=== PATIENT | female | born 1990 | race Caucasian/White ===

== ENCOUNTER → 2020-04-07 11:29 | Outpatient (CLI) | payer OTHER, SELFPAY ==
[2020-04-07 12:16] LABS: COVID19 -Nasal RAPID Negative (Negative)
== END ==
PROVIDERS: Visit Provider Surgery
DX: Z01.812 Encounter for preprocedural laboratory examination (principal); Z20.828 Contact with and (suspected) exposure to other viral communicable diseases
CPT/HCPCS: 87635; C9803

== ENCOUNTER 2020-04-08 09:12 | Day surgery (SDC) | payer OTHER, SELFPAY ==
[2020-04-03 11:44] VITALS: BMI 31.2
[2020-04-08] VITALS (13 sets, daily range): BP systolic 98–119; BP diastolic 45–99; PULSE 47–71; RESP 14–20; TEMP 36.5–37.2; O2SAT 96–100; BMI 30.9
--- NOTE | 2020-04-08 | PATH_ITS ---
[facility] Accession Number: [id number] . 01 Material submitted: . gallbladder - GALLBLADDER AND CONTENTS . 02 Diagnosis: Gallbladder, Cholecystectomy: Chronic cholecystitis with cholelithiasis. Negative for dysplasia and malignancy. MRV 04/11/2020 1144 Local . 02 Electronically signed: . Jeannine Kelly MD, Pathologist NPI- [id number] . 01 Gross description: . Received in formalin, labeled with the patient's name and gallbladder and contents, is an 8.5 x 2.5 x 2.5 cm gallbladder, previously disrupted at body, with clip at patent cystic duct margin, margin inked blue. Opening the gallbladder reveals yellow-jones multifaceted calculi, 2.0 to 3.0 cm in greatest dimension with green velvety mucosa and wall thickness up to 0.2 cm. Vault Attendant sections are submitted. . Summary of sections: A1. Gallbladder and cystic duct margin, five pieces. (MD:[id number]) /MRV 04/09/2020 1509 Local . 02 Pathologist provided ICD-10: K80.60 . 02 CPT . 527738 Performed at: 01 [facility] [address] [facility] [place], [place], [place] [id number] MD Aaron Wilson MD Phone: [phone] Performed at: 02 [facility] [address] [place], [place] [id number] MD Jeannine Kelly MD Phone: [phone]
--- NOTE | 2020-04-08 09:32 | PM.PREOP ---
Pre-operative Note COVID-19 COVID-19 status: Negative Interval Note History & Physical reviewed/Exam performed by Physician: Yes Changes to H&P: No
[2020-04-08] MEDS: ACETAMINOPHEN 325 MG TABLET 975 MG PO (09:44)
[2020-04-08] MEDS: LACTATED RINGERS 1,000 ML 100 ML IV ×2 (09:46→11:15)
--- NOTE | 2020-04-08 09:49 | SUR.OPER ---
Supine on padded OR bed, head on pillow, arms secured on padded arm boards at <90 degrees abduction, legs uncrossed, safety belt at thigh, tape over blanket over lower legs.
[2020-04-08] MEDS: CEFAZOLIN 2 GM/100 ML FROZ.PIGGY IV (10:10)
[2020-04-08] MEDS: BUPIVACAINE 0.25% (PF) VIAL 30 ML INJ (10:31)
--- NOTE | 2020-04-08 11:41 | P.OP_ITS ---
Operative Date/Time/Diagnoses Date of procedure: 04/08/20 Time of procedure: 11:41 Pre-op diagnosis: Biliary colic Post-op diagnosis: same Procedure & Clinicians Procedure: Laparoscopic cholecystectomy Same procedure as scheduled: Yes Indications: 29-year-old female with symptomatic cholelithiasis Surgeon: Faustino Coffman Anesthesia Type: General Operative Notes Findings: Critical view safety established, large gallstone Specimen(s): other (Gallbladder) Estimated Blood Loss (mL): 20 Procedure in detail: The patient was placed supine on the table and bilateral lower extremity compression devices were applied. Anesthesia was induced they were intubated with an endotracheal tube and received 2g of Ancef. A time-out was performed. They were prepped and draped in sterile fashion. An infraumbilical incision was made, the umbilical stalk was elevated and the fascia was sharply incised entering the abdomen atraumatically. A blunt tip 12mm balloon trocar was then inserted, pneumoperitoneum was established and inspection of the abdomen demonstrated no evidence of injury. They were placed head up and right side up and then a 11 mm port was placed high in the epigastrium and two 5mm in the right upper quadrant. The gallbladder was grasped by the fundus and retracted over the liver and retracted laterally by the infundibulum. Using electrocautery the lateral plane between the gallbladder and the liver was opened towards the fundus. The gallbladder was not acutely inflamed there was a large gallstone present. The gallbladder was then retracted laterally and the medial plane was developed in the same manner. With the gallbladder mobilized the bottom of the cystic plate was visualized. The hepatocystic triangle was meticulosly skeletonized using hook electrocautery of all fat and fibrous tissue from both the front and the back. Only two structures were then clearly seen entering the gallbladder the cystic duct and the cystic artery. With the critical view of safety fully established the cystic duct was clipped twice proximally and once distally using the 10 mm clip applied under direct visualization and then sharply divided. The cystic artery was divided in the same fashion. The gallbladder was removed from the liver bed using electro cautery. The liver bed was then inspected for hemostasis and this was achieved. The abdomen was irrigated with sterile saline and inspection was made that showed the clips in good position. The specimen was removed using Endo-Catch. The abdomen was desufflated. The umbilical fascia was closed with 0 Vicryl in a [id number] fashion under direct visualization. Skin incisions were irrigated and closed with 4-0 Monocryl. 30 ml of 0.25% bupivac madison was infiltrated into the subcutaneous tissue of the incisions. The wounds were sealed with Dermabond. Patient emerged from anesthesia was extubated and transferred to recovery in stable condition. The sponge and instrument count at the end of the operation was correct. Complications: none Post-operative Condition: stable Disposition: same day surgery
[2020-04-08] MEDS: OXYCODONE IR 5 MG TABLET PO ×2 (12:27→12:58)
== END 2020-04-08 13:17 | disposition home or self-care (01) ==
PROVIDERS: Referring Provider Surgery; Visit Provider Surgery
PROC: 0FT44ZZ Resection of Gallbladder, Percutaneous Endoscopic Approach (ICD-10-PCS; CPT 47562; principal; 2020-04-08 10:15)
DX: K80.10 Calculus of gallbladder with chronic cholecystitis without obstruction (principal); I48.91 Unspecified atrial fibrillation
CPT/HCPCS: 47562; 82962; J0330; J0690; J1100; J1885; J2250; J2405; J2704; J3010

== ENCOUNTER → 2020-07-03 12:17 | Outpatient (CLI) | payer OTHER, SELFPAY | PROVIDERS: Referring Provider Obstetrics & Gynecology; Visit Provider Obstetrics & Gynecology | DX: Z34.90 Encounter for supervision of normal pregnancy, unspecified, unspecified trimester (principal); Z87.59 Personal history of other complications of pregnancy, childbirth and the puerperium | CPT/HCPCS: 36415; 84702 ==

== ENCOUNTER → 2020-07-09 14:45 | Outpatient (CLI) | payer OTHER, SELFPAY ==
--- NOTE | 2020-07-09 14:50 | DI.US.S_ITS ---
PROCEDURE: US OB <= 14 WEEKS FETUS INDICATIONS: DATES OUTSIDE/PRIOR DATING DATA: First dating scan (date and location): 07/09/2020 . Estimated date of delivery (RORY) from first dating scan: 03/06/2021 . TECHNIQUE: Real-time scanning was performed of the fetuses and maternal pelvic organs, with image documentation. Endovaginal scanning: Performed for better visualization of the fetuses and maternal adnexal structures. COMPARISON: None. FINDINGS: General: An intrauterine diamniotic dichorionic twin is present, as evidenced by separate placental sites and/or intervening membrane thickness of greater than 2 mm at this early gestational age. Gestational sac A: Embryonic disc present measuring 2 mm corresponding to 5 weeks 5 days and heart rate measures 169 beats per minute. Gestational sac B: Mean gestational sac size of 9 mm corresponding to 5 weeks 5 days and no visible pole or yolk sac. Measurement variability in dating: +/- 4 weeks by LMP, +/- 7 days by mean sac diameter (use before 6 weeks gestation if crown-rump length unable to be measured), +/- 5 days by crown-rump length (up to 8 weeks 6 days gestation), +/- 7 days by crown-rump length (up to 13 weeks 6 days gestation). Maternal organs: Ovaries within normal limits . IMPRESSION: 1. Diamniotic dichorionic twin with a pole visualized within 1 of the 2 sacs measuring 2 mm corresponding to 5 weeks 5 days. Within the other sac, no definite pole or yolk sac is seen. Recommend short-term follow-up pelvic ultrasound in 1 week to assess viability. Dictated by: Kale Newsome [facility] Interpreted: Sofía Vazquez MD on 07/09/2020 at 15:35 Approved by: Sofía Vazquez MD, PhD on 07/09/2020 at 15:39
== END ==
PROVIDERS: PCP Obstetrics & Gynecology; Referring Provider Obstetrics & Gynecology; Visit Provider Obstetrics & Gynecology
DX: Z34.81 Encounter for supervision of other normal pregnancy, first trimester (principal); Z3A.01 Less than 8 weeks gestation of pregnancy
CPT/HCPCS: 76801; 76802; 76817

== ENCOUNTER → 2020-07-28 11:44 | Outpatient (CLI) | payer OTHER, SELFPAY ==
[2020-07-28 12:47] LABS: Add Manual Diff / Slide Review NO; Basophils Absolute Auto 100 /uL (0-100); Basophils Percent Auto 0.5 % (0-2); Eosinophils Absolute Auto 100 /uL (0-450); Eosinophils Percent Auto 1.1 % (2-4); Hematocrit 38.4 % (36-46); Hemoglobin 13.6 g/dL (12.0-16.0); Lymphocytes Absolute Auto 2000 /uL (1100-4500); Lymphocytes Percent Auto 20.6 % (25-40); Mean Corpuscular HGB Conc 35.3 % (30-36); Mean Corpuscular Hemoglobin 31.4 PG (26-34); Mean Corpuscular Volume 88.9 fL (80-100); Monocytes Absolute Auto 600 /uL (0-900); Monocytes Percent Auto 6.4 % (3-14); Neutrophils Absolute Auto 6900 /uL (1500-7000); Neutrophils Percent Auto 71.4 % (50-75); Platelet Count 229 X10^3/uL (150-400); Red Blood Cell Count 4.32 X10^6/uL (4.0-5.2); Red Cell Distribution Width 13.1 % (11.6-14.8); White Blood Cell Count 9.7 X10^3/uL (4.5-11.0)
[2020-07-28 13:04] LABS: Hemoglobin A1C% w Est Avg Glu 4.9 % (4.0-6.0)
[2020-07-28 16:29] LABS: HIV 1 & 2 Ab/Ag 4th Gen Combo NEGATIVE (NEGATIVE); Hep C Virus Ab w/Reflex Quant NEGATIVE s/c (NEGATIVE); Hepatitis B Surface Antigen NEGATIVE s/c (NEGATIVE); Rubella Antibody IgG 20.3 IU/mL (>15)
[2020-07-29 07:31] LABS: RPR Screen Non Reactive (Non Reactive)
[2020-07-29 13:00] LABS: Varicella IgG Antibody <135 index (Immune >165)
== END ==
PROVIDERS: PCP Student in an Organized Health Care Education/Training Program; Referring Provider Obstetrics & Gynecology; Visit Provider Obstetrics & Gynecology
DX: Z34.81 Encounter for supervision of other normal pregnancy, first trimester (principal)
CPT/HCPCS: 36415; 80055; 83036; 86787; 86803; 86850; 86900; 86901; 87389

== ENCOUNTER → 2020-08-07 13:39 | Outpatient (CLI) | payer OTHER, SELFPAY ==
--- NOTE | 2020-08-07 14:32 | DIET.PN ---
INITIAL GESTATIONAL DIABETES ASSESSMENT ASSESS:? Mrs. Infante is a 29 yof with twin gestation referred for gestational diabetes. She is . She had gestational diabetes with her last . She reports feeling much more fatigued and nauseous throughout this . She admits she has been eating high carb meals. She does weekly meal planning. She has not been monitoring her glucose, but she does have a glucose monitor and will purchase new strips. ? RORY:?Feb 2021 (planned for Jan) ? WKS GESTATION:?? 10 wks ?LABS: A1c: 4.9 (has not had OGTT yet) ? MEDS: no med ? DIET:? Convenience foods B: cereal; guyanese yogurt smoothie; egg sandwich (great seed bread) L: chicken Caesar jv; grilled cheese D: salas?s pie; pork chops, veg, starch; chicken enchiladas ? HT:? 64in ? PRE-PREG WT:? 190lb ? PRE-PREG BMI:??? 32.6 ? CURRENT WT: 190lb ? TOTAL WT GAIN:? 0 EXERCISE: none NUTRITION DX 1. Altered nutrition related lab values r/t gestational diabetes as evidenced by hx of gestational diabetes w/ prior . INTERVENTION 1. Discussed pathophysiology of gestational diabetes and impact of hormone and nutrition/diet on blood sugar control.? Discussed fed versus non-fed state.? 2. Recommended checking fasting, pre-meal and 1hr post prandial (3x/day).? Discussed goals for glycemic control (<95 FBG, <140 1-hr PP).? 3. Discussed the effect of carbohydrates/protein/fat on blood sugar control.? Stressed importance of consistent carbohydrate intake at each meal and provided instructions for recommended servings/portions of carbohydrates/protein per meal.? Provided pt with educational material. 4. Introduced carbohydrate counting and measuring carbohydrate content via servings sizes and reading nutrition labels.? Provided handouts.? Pt will need further review 5. Discussed importance of meal timing and not going >3 hours between meals.? Provided sample meal schedule for pt.? Pt agreeable.?? 6. Discussed importance a pre- vitamin and including food sources of calcium, vitamin D, iron and folic acid for baby and mother?s nutrition support. 7. Discussed caffeine intake. Recommend no more than 200 mg/day (1 cup coffee). 8. Discussed rule of 15 for hypoglycemia. 9. Recommend patient purchase Urine Ketone strips and instructed on use and when to contact provider. 10. Recommended patient continue exercise as appropriate per PCP approval. 11. Patient may need medication management, will follow-up with plan of care at next visit after reviewing glucose results.? Goals: Pro: 70-95g (1st 1/2 of preg) 95-120g (2nd ?) Carb: 150-180g/day (depending on glucose values MONITOR/EVAL: Follow up scheduled X 1 week. Good compliance expected. Review: carb sources, carb counting, portion size, meal timing, BG log, weight.
== END ==
PROVIDERS: PCP Student in an Organized Health Care Education/Training Program; Referring Provider Student in an Organized Health Care Education/Training Program; Visit Provider Obstetrics & Gynecology
DX: O24.419 Gestational diabetes mellitus in pregnancy, unspecified control (principal); Z3A.10 10 weeks gestation of pregnancy; Z71.3 Dietary counseling and surveillance
CPT/HCPCS: G0108

== ENCOUNTER → 2020-09-15 09:55 | Outpatient (CLI) | payer OTHER, SELFPAY ==
[2020-09-15 12:01] LABS: Appearance Urine UA SL CLOUDY; Bilirubin Urine UA NEGATIVE (NEGATIVE); Color Urine UA YELLOW; Glucose Urine UA TRACE g/dL (Negative); Ketones Urine UA NEGATIVE (NEGATIVE); Leukocyte Esterase Urine UA NEGATIVE (NEGATIVE); Nitrite Urine UA NEGATIVE (Negative); Occult Blood Urine UA NEGATIVE (Negative); Protein Urine UA TRACE (Negative); Urobilinogen Urine UA 0.2 E.U./dL (0.2)
[2020-09-15 12:09] LABS: pH Urine UA 6.5 (4.5-8.0)
== END ==
PROVIDERS: PCP Student in an Organized Health Care Education/Training Program; Visit Provider Obstetrics & Gynecology
DX: Z34.81 Encounter for supervision of other normal pregnancy, first trimester (principal)
CPT/HCPCS: 81003; 87086

== ENCOUNTER → 2020-10-13 12:17 | Outpatient (CLI) | payer OTHER, SELFPAY ==
[2020-10-13 17:10] LABS: Urine N gonorrhoeae NOT DETECTED
[2020-10-13 17:14] LABS: Urine Chlamydia NOT DETECTED
== END ==
PROVIDERS: PCP Student in an Organized Health Care Education/Training Program; Referring Provider Obstetrics & Gynecology; Visit Provider Obstetrics & Gynecology
DX: Z34.82 Encounter for supervision of other normal pregnancy, second trimester (principal); Z3A.19 19 weeks gestation of pregnancy
CPT/HCPCS: 87491; 87591

== ENCOUNTER → 2020-10-20 10:28 | Outpatient (CLI) | payer OTHER, SELFPAY ==
--- NOTE | 2020-10-20 10:28 | DI.US.S_ITS ---
PROCEDURE: US OB >= 14 WEEKS FETUS INDICATIONS: ANATOMY OUTSIDE/PRIOR DATING DATA: Last menstrual period (LMP): 05/31/20 . LMP-based estimated date of delivery (RORY): 03/07/21 First dating scan (date and location): 07/09/20 . Estimated date of delivery (RORY) from first dating scan: 03/06/21 . TECHNIQUE: Real-time scanning was performed of the fetus, with image documentation and biometric measurements. Endovaginal scanning: Not performed COMPARISON: [facility], OB >= 14 WEEKS FETUS, 08/15/2020, 9:53. [facility], OB <= 14 WEEKS FETUS, 07/28/2020, 11:24. [facility], OB >= 14 WEEKS FETUS, 07/23/2020, 12:20. [facility], OB <= 14 WEEKS FETUS, 07/09/2020, 14:59. [facility], OB >= 14 WEEKS FETUS, 09/15/2020, 9:59. FINDINGS: General: A single living intrauterine gestation is present. Presentation: Transverse head maternal left.. Placenta: Placental position is left posterior , and there is marginal placenta previa. Amniotic fluid index: 12.0 cm, normal range is 5-24 cm. heart rate: 155 beats per minute. Maternal cervical canal: 6.0 cm long. Normal lower limit is 2.5 cm. biometrics: Biparietal diameter: 4.8 cm, 20 weeks 3 days Head circumference: 18.7 cm, 21 weeks 0 days Abdominal circumference: 16.1 cm, 21 weeks 3 days Femur length: 3.5 cm, 20 weeks 6 days Estimated gestational age from initial scan: 20 weeks 3 days Composite gestational age from present scan: 21 weeks 0 days Estimated weight and percentile: 403 g, 83rd percentile bowel Measurement variability for biometric dating: +/- 7 days from 14 weeks to 15 weeks 6 days gestation, +/- 10 days from 16 weeks to 21 weeks 6 days gestation, +/- 2 weeks from 22 weeks to 27 weeks 6 days gestation, +/- 3 weeks for 28 weeks gestation or later. weight reference: 4500 g or EFW >90/95% is considered macrosomia or large for gestational age. EFW <10% is small for gestational age. EFW 5% or less is considered intra-uterine growth restriction. Anatomic survey: Neuro: Ventricles are non-dilated at less than 10 mm. Cisterna magna is normal at 3-11 mm. Cerebellum is normal in size and morphology. Nuchal skin fold: Normal at less than 6 mm between 14-21 weeks gestational age. Face: Nose and lips, facial profile are normal. Spine: No evidence for spina bifida. Heart: 4-chambered heart is present, with normal ventricular outflow tracts. Diaphragm: Diaphragm is intact. Stomach: Left-sided stomach is present. Kidneys: No hydronephrosis. Normal is less than 5 mm in 2nd trimester, less than 7 mm in 3rd trimester. Cord: 3-vessel cord has orthotopic insertion. Bladder: Normal in size. Extremities: All 4 extremities identified. IMPRESSION: Single living intrauterine fetus in transverse (head maternal left) presentation. Expected interval growth as above. Marginal placenta previa. Recommend follow-up Normal anatomic survey. Dictated by: Pito Luu M.D. on 10/20/2020 at 12:46 Approved by: Pito Luu M.D. on 10/20/2020 at 12:53
== END ==
PROVIDERS: PCP Student in an Organized Health Care Education/Training Program; Referring Provider Obstetrics & Gynecology; Visit Provider Obstetrics & Gynecology
DX: Z34.82 Encounter for supervision of other normal pregnancy, second trimester (principal); Z3A.20 20 weeks gestation of pregnancy
CPT/HCPCS: 76811

== ENCOUNTER → 2020-11-19 09:42 | Outpatient (CLI) | payer OTHER, SELFPAY ==
--- NOTE | 2020-11-19 09:43 | DI.US.S_ITS ---
PROCEDURE: US OB LIMITED INDICATIONS: CERVICAL LENGTH OUTSIDE/PRIOR DATING DATA: Last menstrual period (LMP): 05/31/20 LMP-based estimated date of delivery (RORY): 03/07/21 First dating scan (date and location): 07/09/20 Estimated date of delivery (RORY) from first dating scan: 03/06/21 TECHNIQUE: Real-time scanning was performed of the fetus, with image documentation. Endovaginal scanning: Performed COMPARISON: Ultrasound dated 11/18/20, 10/20/20, 09/15/20, 08/15/20, 07/28/20, 07/23/20, 07/09/20. FINDINGS: A single living intrauterine gestation is present. Presentation: Vertex. Placenta: Placental position is posterior , without previa. Amniotic fluid index: 9.1 cm, normal range is 5-24 cm. heart rate: 126 beats per minute. Maternal cervical canal: 3.9 cm long. Normal lower limit is 2.5 cm. Estimated gestational age from initial scan: 24 weeks 5 days . IMPRESSION: Single living intrauterine fetus in vertex presentation Cervical length measures 3.9 cm within normal limits. Normal CON Dictated by: Pito Luu M.D. on 11/19/2020 at 11:08 Approved by: Pito Luu M.D. on 11/19/2020 at 11:10
== END ==
PROVIDERS: PCP Student in an Organized Health Care Education/Training Program; Referring Provider Obstetrics & Gynecology; Visit Provider Obstetrics & Gynecology
DX: Z36.86 Encounter for antenatal screening for cervical length (principal); Z3A.24 24 weeks gestation of pregnancy
CPT/HCPCS: 76815; 76817

== ENCOUNTER → 2020-11-29 09:36 | Outpatient (CLI) | payer OTHER, SELFPAY ==
[2020-11-29 10:54] LABS: Hematocrit 33.8 % (36-46); Hemoglobin 11.6 g/dL (12.0-16.0)
[2020-11-29 11:18] LABS: GTT (PREG) 1 Hour PP 50gm Dose 154 mg/dL (76-139)
== END ==
PROVIDERS: Obstetrics & Gynecology; PCP Student in an Organized Health Care Education/Training Program; Referring Provider Student in an Organized Health Care Education/Training Program; Visit Provider Student in an Organized Health Care Education/Training Program
DX: Z34.82 Encounter for supervision of other normal pregnancy, second trimester (principal); Z3A.25 25 weeks gestation of pregnancy
CPT/HCPCS: 36415; 82950; 85014; 85018

== ENCOUNTER → 2020-12-05 08:08 | Outpatient (CLI) | payer OTHER, SELFPAY ==
[2020-12-05 09:19] LABS: Glucose Fasting Gestational 86 mg/dL (76-95)
[2020-12-05 10:45] LABS: Glucose 1 Hour Gest 190 mg/dL (76-180)
[2020-12-05 11:07] LABS: Glucose 2 Hour Gest 111 mg/dL (76-155)
[2020-12-05 11:41] LABS: Glucose Tol Interp,Gestational INTERPRETATION
[2020-12-05 13:41] LABS: Glucose 3 Hour Gest 89 mg/dL (76-140)
== END ==
PROVIDERS: PCP Student in an Organized Health Care Education/Training Program; Referring Provider Obstetrics & Gynecology; Visit Provider Obstetrics & Gynecology
DX: Z34.82 Encounter for supervision of other normal pregnancy, second trimester (principal); Z3A.26 26 weeks gestation of pregnancy
CPT/HCPCS: 36415; 82951; 82952

== ENCOUNTER 2020-12-06 18:24 | Outpatient (CLI) | payer OTHER, SELFPAY ==
--- NOTE | 2020-12-06 23:17 | P.TNLD_ITS ---
Visit Information Visit Information Date of evaluation: 12/06/20 Primary OB Provider: Lauren Steve On-call OB Provider: Ema Ortega Reason for Evaluation: Yes non-stress test Comments/Additional reasons for admission: decreased movement Vital Signs Vital Signs: Blood pressure 99/63, pulse of 85 [facility] Medical History (Updated 12/06/20 @ 23:41 by Ema Ortega MD) A-fib (~2016) Anxiety (~2015) Bronchitis (~2002) Constipation (~2017) Depression (~2015) Diastasis recti Gestational diabetes (~12/2017) Migraine with aura (~2011) Normal colonoscopy Surgical History (Updated 07/28/20 @ 11:42 by Lauren Steve MD) Hx laparoscopic cholecystectomy (~2019) Hx of section Hx of colonoscopy (~2015) [place] teeth extracted (~01/2008) Family History (Updated 07/25/20 @ 13:49 by Carole Crespo RN) Mother Depression Anxiety Thyroid disease Hypotension Father Depression Grandmother Ovarian cancer Depression Anxiety White matter disease Myocardial infarction Grandfather Family estrangement Grandmother Dementia Stroke Hypertension Hyperlipidemia Obesity Diabetes mellitus Grandfather Drug abuse Alcohol abuse Sister Anxiety Depression HPV in female Sister Anxiety Depression Social History marital status: number of children: 2 household members: spouse, family (Sister's ex-.) and children lives independently: Yes caregiver/support person: No housing: house pets and animals: Yes (1 husky, 1 prydeinig olivares: Safe. 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.) current occupational exposures/hazards: No alejo/caodaism: Hoahaoism special alejo needs: No seatbelt use: always working smoke detector in home: Yes fire extinguisher in home: Yes carbon monox detector in home: Yes firearms in home: No do you feel safe at home: Yes Smoking Status: Never smoker second hand exposure: Yes ( smokes outside.) alcohol intake: never substance use type: does not use during the past year weight has: increased > 10 lbs Type(s) of exercise: walking frequency: does not exercise Evaluation Evaluation Baseline heart rate: 130 Variability: Moderate (11-25) monitor accelerations: Present Monitor Decelerations: Absent Contraction Frequency (minutes): 0 Category of Tracing: Reactive Diagnosis, Plan/Disposition Final Diagnosis (1) 27 weeks gestation of : Status: Acute (2) Decreased movement: Status: Acute Plan/Disposition Plan: Very reactive strip with the baby active on admission. Patient is reassured. OB Disposition: home
== END 2020-12-06 19:40 | disposition home or self-care (01) ==
LOC: OB 12-08 07:35
PROVIDERS: PCP Student in an Organized Health Care Education/Training Program; Referring Provider Specialist; Visit Provider Specialist
DX: O36.8120 Decreased fetal movements, second trimester, not applicable or unspecified (principal); Z3A.27 27 weeks gestation of pregnancy
CPT/HCPCS: 59025; G0378; G0379

== ENCOUNTER → 2020-12-10 15:52 | Outpatient (CLI) | payer OTHER, SELFPAY ==
--- NOTE | 2020-12-10 18:03 | DIET.PN ---
MNT Assessment Name: Vanita Infante Date: 12/10/20 Time: 4-5:20pm Dx: Gestational Diabetes personal hx; abnormal glucose RORY: 03/06/21 G: P: 4 ; 2 Weeks: 27 (5d) Provider: Evi Waldron presents today for diabetes ed follow-up. Saw ELLIOTT VILLALOBOS in July this year. She presents with her two sons. Endorses h/o GDM with youngest son 3 years ago, managed with diet. States she is worried about recent BG elevations (see SMBG below). States she aims for 45g CHO at meals and 15g at snacks. Today she tells me she was with twins but sadly lost one fetus (her daughter). She is motivated to manage blood sugars. Some anxiety around readings. Worries about baby being born with diabetes or having seizures r/t hyperglycemia. Minimal weight gain this . Moderate to low carb intake for . Doing well with counting carbs and having protein with most meals and snacks. Documenting BG and food intake currently. h/o cholecystectomy. Low tolerance of high fat foods. 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 States she usually manages stress with journalling, but she feels unable to do this right now with current responsibilities. Diet Recall: 730-10a: oatmeal with milk or eggs with fruit or belvita x 4 12-1p: turkey sandwich with 1/2 apple or abarca smoothie 2-5p: kind bar or smart pop with cheese or crackers with cream cheese 530-730p: steak with tortillas and veg or sausage with potatoes and broccoli Beverages; 60-80oz water Anthropometrics: Ht: 64 Wt: 203# reported prepg wt: 193# Wt changes: +10# Physical Activity: No program currently. Tries to go for walks. Barrier: fatiuge and pain Self-Monitoring Blood Glucose: checking 4 x per day: fasting and 1 or 2 hr pc. C/o SOB and increased HR with hyperglycemia. All FBG in goal range. One elevation of 165 mg/dL after breakfast today (45g CHO and no protein). One elevated lunch reading today with 45g CHO with protien. No other elevations. Date Pre Post Pre Post Pre Post 12/04 86 91 2 hr 91 2 hr 94 2 hr 12/05 78 124 2 hr 12/06 90 102 2 hr 97 2hr 118 2hr 12/07 78 96 2 hr 87 2 hr 132 2 hr 12/08 78 95 2hr 108 2hr 12/09 80 88 97 89 12/10 87 165 154 Labs: 07/28/20: HgA1c 4.9% WNL 11/29/20 1 hr 50gm: 154 H 12/05/20 F: 86 1H: 190 H 2H: 111 3H: 89 *Per ACOG GDM can be diagnosed with 1 elevation Medications: PNV + iron Nutrition Rx: Carbohydrates: Meal: 45-g lunch and dinner; 30g breakfast Snack: 15-30g Nutrition Diagnosis: - Altered nutrition related lab value r/t insulin resistance recent OGTT - Excessive CHO intake r/t nutr related knowledge deficit on breakfast nutr rx aeb pt report and diet recall Intervention: This participant was very receptive. Provided appropriate educational handouts. Discussed the following topics: - insulin resistance pathophysiology and impact of hyperglycemia on mom and baby - Risk for T2DM for mom and baby in the future - Ways to reduce risk T2DM - Plate Method, meal timing, carb counting, pairing macronutrients and spreading out CHO for better BG management - BG goals (FBG: <95 and 1 hour <140 mg/dL); importance of checking BG 4x per day (FBG and pc) - Discussed looking for BG trends and not just outliers - Impact of macronutrients on BG - Rec servings for CHO at meals and snacks - Brainstormed appropriate meal plan based on her food preferences - Brainstormed smoothie ideas - Discussed how baby will not be born with T2DM - Reviewed label reading for net carbs - Lean proteins list - stress mgmgnt and sleep health Goals: - Check 1 hour pc instead of 2 hr - read label for net carbs - have protein with each meal and snack - aim for 30g CHO at breakfst Follow-up: NING VILLALOBOS follow-up in 2 weeks. Pt to call sooner if noticing regular elevations. Kristi Conde, NING, GRISELDA Certified Diabetes Care and [employer] F[employer] T: [phone] F: [phone] [email or web address] Thank you for this referral
== END ==
PROVIDERS: PCP Student in an Organized Health Care Education/Training Program; Referring Provider Obstetrics & Gynecology; Visit Provider Obstetrics & Gynecology
DX: O26.892 Other specified pregnancy related conditions, second trimester (principal); R73.9 Hyperglycemia, unspecified; Z3A.27 27 weeks gestation of pregnancy; Z86.32 Personal history of gestational diabetes; Z71.3 Dietary counseling and surveillance
CPT/HCPCS: 97803

== ENCOUNTER → 2020-12-24 11:49 | Outpatient (CLI) | payer OTHER, SELFPAY ==
--- NOTE | 2020-12-24 16:30 | DIET.PN1 ---
Addendum entered by Kristi Conde 12/24/20 16:45: Discussed resources, plans, and benefits Reviewed HgA1c recs (q1-3 years at least 4 months after) Discussed ways to reduce insulin resistance risk Original Note: MNT Assessment Follow-up Name: Vanita Infante Date: 12/24/20 Time: 12-1240pm Dx: Gestational Diabetes personal hx; abnormal glucose RORY: 03/06/21 G: P: 4 ; 2 Provider: Evi Vanita presents today for nutrition follow-up. Today she brought her blood sugar log along with documented meals and some carb counts. Endorses increased leafy green intake. Changed PNV after noticing increased BG. Increase in eating out occurrences. Some meals seem low in carb for (<45g). States she is feeling unsatisfied some days with diet. Having sugar cravings and difficulty avoiding emotional eating. States she has a h/o coping with stress through food intake. Plans to see counselor again starting tomorrow. 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 Anthropometrics: Ht: 64 prepg wt: 193# Physical Activity: No program currently. Wants to go for walks, but main barrier is not feeling good, pain mostly. Self-Monitoring Blood Glucose: checking 4 x per day: fasting and 1 hr pc. All recent readings in range. Without GDM specific diagnosis, she could reduce BG checks to BID. She is buying strips OTC, which are expensive. Encouraged her to discuss further with provider. Date Pre Post Pre Post Pre Post 12/18 85 117 130 118 12/19 85 123 135 12/20 84 123 131 126 12/21 89 119 124 118 12/22 87 121 126 102 12/23 88 124 122 126 12/24 87 123 Labs: 07/28/20: HgA1c 4.9% WNL 11/29/20 1 hr 50gm: 154 H 12/05/20 F: 86 1H: 190 H 2H: 111 3H: 89 *Per ACOG GDM can be diagnosed with 1 elevation Medications: PNV + iron Nutrition Rx: Carbohydrates: Meal: 45-g lunch and dinner; 30g breakfast Snack: 15-30g Nutrition Diagnosis: - Altered nutrition related lab value r/t insulin resistance recent OGTT - Excessive CHO intake r/t nutr related knowledge deficit on breakfast nutr rx aeb pt report and diet recall- improved - Physical inactivity r/t pain and stage of change potentially aeb pt report Intervention: This participant was very receptive. Provided appropriate educational handouts. Discussed the following topics: - emotional eating and blood sugar mgmgnt - consideration for BG monitoring BID - cheaper options for BG strips online - protein options for snacks - ways to make meals more satisfied and carb rx - ways to be active in an enjoyable way - bg review and trends Goals: - Check 1 hour pc instead of 2 hr - met - read label for net carbs - met - have protein with each meal and snack- in progress - aim for 30g CHO at breakfst- met - grocery shop for proteins for snacks- new - try fruit at breakfast for satiety- new - if having a sweet, pair with protein- new - Try going to the park with children 1-2 x per week- new Follow-up: NING VILLALOBOS follow-up prn. Encouraged her to call if seeing BG trending up, she agreed to this plan. Kristi Conde RDN, GRISELDA Certified Diabetes Care and [employer] T: [phone] F: [phone] [email or web address] Thank you for this referral
== END ==
PROVIDERS: Family Provider Obstetrics & Gynecology; PCP Student in an Organized Health Care Education/Training Program; Referring Provider Obstetrics & Gynecology; Visit Provider Obstetrics & Gynecology
DX: O26.899 Other specified pregnancy related conditions, unspecified trimester (principal); Z86.39 Personal history of other endocrine, nutritional and metabolic disease; Z71.3 Dietary counseling and surveillance
CPT/HCPCS: 97803

== ENCOUNTER → 2021-02-18 17:25 | Outpatient (CLI) | payer OTHER, SELFPAY ==
[2021-02-21 13:38] LABS: Strep Grp B PCR NEG for Grp B Strep
== END ==
PROVIDERS: Family Provider Obstetrics & Gynecology; PCP Student in an Organized Health Care Education/Training Program; Visit Provider Obstetrics & Gynecology
DX: Z34.83 Encounter for supervision of other normal pregnancy, third trimester (principal); Z3A.37 37 weeks gestation of pregnancy
CPT/HCPCS: 87653

== ENCOUNTER → 2021-02-24 15:34 | Outpatient (CLI) | payer OTHER, SELFPAY ==
[2021-02-24 16:02] LABS: COVID19 -Nasal RAPID Negative (Negative)
== END ==
PROVIDERS: Family Provider Obstetrics & Gynecology; PCP Student in an Organized Health Care Education/Training Program; Visit Provider Obstetrics & Gynecology
DX: Z20.822 Contact with and (suspected) exposure to COVID-19 (principal); Z01.812 Encounter for preprocedural laboratory examination
CPT/HCPCS: 87635

== ENCOUNTER 2021-02-26 08:37 | Inpatient (IN) | payer OTHER, SELFPAY ==
[2021-02-26] VITALS (9 sets, daily range): BP systolic 99–117; BP diastolic 59–74; PULSE 65–84; RESP 12–16; TEMP 36.6–36.8; O2SAT 100
[2021-02-26] MEDS: LACTATED RINGERS 1,000 ML 100 ML IV ×2 (09:40→13:10)
[2021-02-26 09:45] LABS: Add Manual Diff / Slide Review NO; Basophils Absolute Auto 100 /uL (0-100); Basophils Percent Auto 0.6 % (0-2); Eosinophils Absolute Auto 0 /uL (0-450); Eosinophils Percent Auto 0.6 % (2-4); Hemoglobin 11.4 g/dL (12.0-16.0); Lymphocytes Absolute Auto 1300 /uL (1100-4500); Mean Corpuscular HGB Conc 33.7 % (30-36); Mean Corpuscular Hemoglobin 27.8 PG (26-34); Mean Corpuscular Volume 82.5 fL (80-100); Monocytes Absolute Auto 600 /uL (0-900); Neutrophils Absolute Auto 5900 /uL (1500-7000); Neutrophils Percent Auto 74.8 % (50-75); Platelet Count 154 X10^3/uL (150-400); Red Blood Cell Count 4.12 X10^6/uL (4.0-5.2); Red Cell Distribution Width 14.6 % (11.6-14.8); White Blood Cell Count 7.9 X10^3/uL (4.5-11.0)
--- NOTE | 2021-02-26 10:15 | PM.OBHP.IH.1 ---
OB HPI Date/Time Date of admission: 02/26/21 Date Patient Seen: 02/26/21 Time Patient Seen: 10:16 History of Present Condition Chief complaint: REPEAT RORY Calculator Estimated Delivery Date Method Current WG Current Estimate 03/06/21 Ultrasound #2 38w 6d Other Estimates 03/07/21 LMP (Certain) 38w 5d 03/06/21 Ultrasound #1 38w 6d # 2 Estimated Gestational Age (weeks): 39 : 4 Para: 2 care: good care Dating criteria OB: LMP confirmed by 1st trimester US Ultrasounds: normal 1st trimester US and normal mid trimester US Obstetrical complications: none Medical complications OB: none Indications Operative indications ( section): previous uterine surgery Preadmission Labs Last OB Lab Results: Blood Type A Positive 07/28/20 11:50 07/28/20 Antibody Screen Negative 07/28/20 11:50 07/28/20 Hematocrit 34.0 % (36-46) L 02/26/21 09:20 02/26/21 Hemoglobin 11.4 g/dL (12.0-16.0) L 02/26/21 09:20 02/26/21 Hepatitis B Surface Antigen Negative s/c (NEGATIVE) 07/28/20 11:50 07/28/20 Hepatitis C Antibody Negative s/c (NEGATIVE) 07/28/20 11:50 07/28/20 Rubella Antibody 20.3 IU/mL (>15) 07/28/20 11:50 07/28/20 Varicella-Zoster IgG Antibody <135 index (Immune >165) L 07/28/20 11:50 07/28/20 Glucose 1 Hour 154 mg/dL (76-139) H 11/29/20 09:43 11/29/20 Group B Streptococcus (PCR) Neg for grp b strep 02/18/21 17:25 02/18/21 Glucose Tolerance Testing: Fasting (86), 1 hr (190), 2 hr (111) and 3 hr (89) -: Chlamydia screen: negative, Gonorrhea screen: negative and Urine: negative -: PAP smear: Normal External Labs -: Chlamydia screen: negative, Gonorrhea screen: negative and Urine: negative PAP: Normal Prior (ies) Past Pregnancies Del. Date GA/Weeks Labor Lgth Wt Sex Route Outcome Anesthesia Place Delv Breastfeed Preg Comp Name 06/19/15 41.3 34 10 lb 0.6 oz Male live - full term epidural [facility] 6 wks; slow wt gain/low supply failure to progress Melo 04/13/18 38.6 0 7 lb 3 oz Male live - full term spinal [place], [facility] 16 mos.- went well. gestational diabetes Randy 05/31/20 ~6 spontaneous Delivery Date: 06/19/15 Primary C/S: Failure to descend. BF: had mastitis x month. Diastasis recti still present (had PT 1 year PP, then again). Severe PP Anxiety & Depression- did not get help. Carole Crespo Delivery Date: 04/13/18 Scheduled C/S. Diet-controlled GDM. Some PP Anxiety, but pretty mild overall. Carole Crespo Delivery Date: 05/31/20 No notes to display Evaluation Evaluation Baseline heart rate: 140 Variability: Moderate (11-25) monitor accelerations: Present Monitor Decelerations: Absent Status: Category l PFSH Medical History (Updated 02/11/21 @ 11:53 by Osmel Haile MD) A-fib (~2016) Anxiety (~2015) Bronchitis (~2002) Constipation (~2017) Depression (~2015) Diastasis recti Gestational diabetes (~12/2017) Migraine with aura (~2011) Normal colonoscopy Surgical History (Updated 07/28/20 @ 11:42 by Lauren Steve MD) Hx laparoscopic cholecystectomy (~2019) Hx of section Hx of colonoscopy (~2015) [place] teeth extracted (~01/2008) Family History (Updated 07/25/20 @ 13:49 by Carole Crespo RN) Mother Depression Anxiety Thyroid disease Hypotension Father Depression Grandmother Ovarian cancer Depression Anxiety White matter disease Myocardial infarction Grandfather Family estrangement Grandmother Dementia Stroke Hypertension Hyperlipidemia Obesity Diabetes mellitus Grandfather Drug abuse Alcohol abuse Sister Anxiety Depression HPV in female Sister Anxiety Depression Social History marital status: number of children: 2 household members: spouse, family (Sister's ex-.) and children lives independently: Yes caregiver/support person: No housing: house pets and animals: Yes (1 husky, 1 tongan olivares: Safe. 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.) current occupational exposures/hazards: No alejo/hindu: Evangelical special alejo needs: No seatbelt use: always working smoke detector in home: Yes fire extinguisher in home: Yes carbon monox detector in home: Yes firearms in home: No do you feel safe at home: Yes Smoking Status: Never smoker second hand exposure: Yes ( smokes outside.) alcohol intake: never substance use type: does not use during the past year weight has: increased > 10 lbs Type(s) of exercise: walking frequency: does not exercise Meds Home Medications and Allergies Home Medications Medication Instructions Recorded Confirmed Type aspirin 81 mg tablet,delayed 81 mg PO DAILY #90 tab 06/27/20 02/26/21 Rx release (Adult Aspirin Regimen) prenat.vits,ryann,[id number] 1 tab PO DAILY 07/23/20 02/24/21 History progesterone micronized 100 mg 100 mg PO BEDTIME #30 cap 07/28/20 02/24/21 Rx capsule blood-glucose meter #1 ea 08/07/20 02/24/21 Rx lancets 30 gauge and blood glucose #100 ea 08/07/20 02/24/21 Rx strips combo pack Allergies Allergy/AdvReac Type Severity Reaction Status Date / Time No Known Drug Allergies Allergy Verified 02/24/21 15:34 OB Exam Narrative Exam Narrative: Generally: Patient is sitting up in bed, no acute distress Lungs: Clear to auscultation bilaterally Cardiovascular: Regular rate and rhythm Abdomen: Soft. Fundal height 40 cm. Well-healed Pfannenstiel scar. Estimated weight: 7-1/2 lb Extremities: Trace edema, negative Homans Objective Labs Result Diagrams: 02/26/21 09:20 Labs: Laboratory Results - last 24 hr 02/26/21 09:20 WBC 7.9 RBC 4.12 Hgb 11.4 L Hct 34.0 L MCV 82.5 MCH 27.8 MCHC 33.7 RDW 14.6 Plt Count 154 Neut % (Auto) 74.8 Lymph % (Auto) 17.0 L Hopkins % (Auto) 7.0 Eos % (Auto) 0.6 L Baso % (Auto) 0.6 Neut # (Auto) 5900 Lymph # (Auto) 1300 Hopkins # (Auto) 600 Eos # (Auto) 0 Baso # (Auto) 100 Assessment and Plan Assessment and Plan Assessment and Plan narrative: Assessment: 30-year-old 4 para 2 at estimated gestational age with 2 prior sections Plan: Repeat low-transverse section The risks, benefits, and alternatives to the procedure were explained to the patient. The risks including bleeding, infection, injury to the bowel, bladder, or ureters. She understands these risks and agrees to proceed. A full par Q was held and consent form was signed. Time Spent with Patient Total time spent with greater than 50% in coordination of care (as documented) at patient's floor/unit and/or counseling patient:: 15-24 minutes
--- NOTE | 2021-02-26 10:21 | PM.PREOP ---
Pre-operative Note COVID-19 COVID-19 status: Negative Result date/Date tested (Pos, Neg/Pending): 02/24/21 Interval Note History & Physical reviewed/Exam performed by Physician: Yes Changes to H&P: No H&P completed within 30 days and has changed as indicated here:: 02/26/21
[2021-02-26] MEDS: ACETAMINOPHEN IV 1,000 MG/100 ML VIAL 400 MG IV (10:40)
[2021-02-26] MEDS: CEFAZOLIN 1 GM VIAL 2 GM IV (10:43)
--- NOTE | 2021-02-26 11:15 | SUR.OPER ---
Supine on Padded OR bed, head on pillow, safety belt at thigh, arms secured on padded arm boards at <90 degrees abduction. Bump under right buttock. Legs uncrossed with pillow under knees, gel pad to heels, tape over blanket to lower legs.
--- NOTE | 2021-02-26 11:29 | SUR.OPER ---
baby boy born at 1104
--- NOTE | 2021-02-26 11:58 | P.OP_ITS ---
Operative Date/Time/Diagnoses Date of procedure: 02/26/21 Time of procedure: 11:58 Pre-op diagnosis: EGA 39 weeks Two prior C sections Post-op diagnosis: same Procedure & Clinicians Procedure: Repeat Low transverse C section Same procedure as scheduled: Yes Indications: Estimated gestational age of 39 weeks Previous section x2 Surgeon: Lauren Steve Click Yes if Unassisted: No Ad Operations Associate: Sylvia Jimenez Reason for Ad Operations Associate: The assistant media planner was responsible for retracting during entry into the abdomen. She is cyst did with delivery of the baby by performing fundal pressure. She is cyst it in closure by retraction, cutting suture, and closing the contralateral fascia. Anesthesia Type: Spinal Operative Notes Findings: Live male in the vertex presentation Normal uterus, tubes, and ovaries Closure Type: primary Specimen(s): cord blood and placenta Intraoperative meds administered: Duramorph, Ketorolac and Pitocin Estimated Blood Loss (mL): 500 Blood products transfused: none Procedure in detail: The patient was taken to the operating room where she was placed in the seated position. Spinal anesthesia with Duramorph was admini stered. The patient was then placed in the dorsal supine position with a leftward tilt. She was prepped and draped in the usual sterile fashion. A timeout was performed. After spinal analgesia was found to be adequate, a Pfannenstiel skin incision was made through the previous incision and carried through to the underlying layer fascia. The fascia was nicked in the midline, and the incision extended bilaterally with the Yates scissors. The superior aspect of the fascial incision was grasped with a Vj clamps, elevated, and the underlying rectus muscles dissected off sharply and bluntly. Attention was then turned to the inferior aspect of this incision which in a similar fashion was grasped with a Vj clamps, elevated, and the underlying rectus muscles dissected off sharply and bluntly. The rectus muscles were in the midline. The peritoneum was identified, grasped between 2 hemostats, and entered sharply with the Metzenbaum scissors. This incision was extended sup eriorly and inferiorly with good visualization of the bladder. The bladder blade was inserted. The vesicouterine peritoneum was identified, grasped with the pickup, and entered sharply with the Metzenbaum scissors. There were some large veins on the left side of the lower uterine segment and care was taken to avoid these. This incision was extended bilaterally, and the bladder flap was created digitally. The bladder blade was reinserted. The lower uterine segment was incised in a transverse fashion with the scalpel. Upon entering the amniotic sac there was moderate amount of clear amniotic fluid. The infant's head was delivered with vacuum assistance. The nose and mouth were suctioned with bulb suction. The remainder of the body delivered without difficulty. The cord was double clamped and cut. The infant was handed off to waiting RN and RT. The placenta was delivered manually. The uterus was cleared of all clots and debris. The uterine incision was repaired with #1 chromic in a running interlocking fashion, and a second layer the same suture was used for an imbricating layer. There was a small amount of bleeding on the right side of the incision and a [id number] suture with 0 chromic was placed for hemostasis. Hemostasis was achieved. The tubes and ovaries were examined and were found to be normal. The gutters were cleared of all clots and debris. The bladder flap was reapproximated using 2-0 Vicryl in a running fashion. The parietal peritoneum was closed using 2-0 Vicryl in a running fashion. The fascia was reapproximated using 0 Vicryl in a running fashion. The subcutaneous layer was copiously irrigated with warm normal saline. 6 simple interrupted sutures of 3-0 Vicryl were placed to reapproximate the subcutaneous layer. The skin was closed with 4-0 Monocryl in a subcuticular fashion. Steri-Strips were placed. An Aquacell dressing was placed. The uterus was expressed of a small amount of old blood. Sponge, lap, and instrument counts were correct x-2. The patient tolerated the procedure well, and was taken to PACU in stable condition. Complications: none [place] Baby 1: Infant Gender: Male Presentation: vertex Position: Right Occiput Anterior Placental Delivery Description: Expressed Cord Vessel Description: 3 Vessels score (1 min): 9 score (5 min): 9 weight: 7 lb 14 oz Post-operative Condition: stable Disposition: PACU Aftercare: routine postop
--- NOTE | 2021-02-26 12:02 | SUR.OPER ---
LIVE MALE BORN AT 1104
[2021-02-26] MEDS: LANOLIN OINT 7 GM 1 APPLIC TOP (14:14)
[2021-02-26] MEDS: OXYCODONE IR 5 MG TABLET PO (14:14)
[2021-02-26] MEDS: ACETAMINOPHEN 325 MG TABLET 650 MG PO (17:23)
[2021-02-26] MEDS: KETOROLAC 30 MG/ML VIAL IV ×2 (17:25→23:25)
[2021-02-26] MEDS: OXYCODONE IR 5 MG TABLET 10 MG PO ×2 (18:49→23:25)
[2021-02-27] MEDS: KETOROLAC 30 MG/ML VIAL IV (05:37)
[2021-02-27] MEDS: OXYCODONE IR 5 MG TABLET PO ×5 (05:37→23:22)
[2021-02-27 06:50] LABS: Hematocrit 28.2 % (36-46); Hemoglobin 9.4 g/dL (12.0-16.0)
[2021-02-27] MEDS: PRENATAL VIT,CALC/IRON/FOLIC 1 TABLET 1 TAB PO (08:43)
[2021-02-27] MEDS: DOCUSATE 100 MG CAPSULE 200 MG PO (08:43)
--- NOTE | 2021-02-27 12:04 | PM.OBPN.1 ---
Subjective - OB Subjective Patient comments: no complaints and tolerating diet; no pain well controlled or no flatus present [place] baby status: doing well (Using SIS) [place] feeding status: other (Breast and SIS) Date Patient Seen: 02/27/21 Time Patient Seen: 12:05 Interval history: Patient is a 30-year-old 4 para 3 postop day # 1 status post repeat low-transverse section. The Ferguson catheter is out and patient is voiding. Pain is well controlled. She is ambulating without assistance. She has had a consultation. Is using the SIS nurser. Exam Vital Signs (past 8 hours): Oxygen Delivery Method Room Air Narrative Exam Narrative: Generally: Patient is sitting in chair, nursing infant, no acute distress Fundus: Firm at U -1 Incision: Clean dry and intact with Aquacel dressing Extremities: 1+ edema, negative Homans Objective Labs Result Diagrams: 02/27/21 06:23 Labs: Laboratory Results - last 24 hr 02/27/21 06:23 Hgb 9.4 L Hct 28.2 L Assessment & Plan Plan plan OB: routine postop care Time Spent With Patient Time: Total time spent is greater than 50% in coordination of care (as documented) at patient's floor/unit and/or counseling patient: Time with patient: less than 15 minutes
[2021-02-27] MEDS: IBUPROFEN 600 MG TABLET PO ×2 (14:28→20:32)
[2021-02-28] MEDS: OXYCODONE IR 5 MG TABLET PO ×3 (03:15→11:11)
[2021-02-28] MEDS: IBUPROFEN 600 MG TABLET PO (03:15)
[2021-02-28] MEDS: DOCUSATE 100 MG CAPSULE 200 MG PO (07:25)
[2021-02-28] MEDS: PRENATAL VIT,CALC/IRON/FOLIC 1 TABLET 1 TAB PO (07:25)
--- NOTE | 2021-02-28 09:39 | PM.OBPN.1 ---
Subjective - OB Subjective Patient comments: no complaints, pain well controlled, tolerating diet and flatus present baby status: doing well and nursing well [place] feeding status: exclusively breast feeding Date Patient Seen: 02/28/21 Time Patient Seen: 09:47 Interval history: Patient is a 30-year-old 4 para 3 who is postop day # 2 status post repeat low-transverse section. She is doing very well. going well. Passing flatus. Ambulating independently. Pain well controlled. Tolerating a diet. Voiding without the catheter. Exam Vital Signs (past 8 hours): Oxygen Delivery Method Room Air Narrative Exam Narrative: Generally: Patient is sitting up in bed, no acute distress Lungs: Clear to auscultation bilaterally Cardiovascular: Regular rate and rhythm Fundus: Firm at U -2 Incision: Clean dry and intact with Aquacel dressing Extremities: Negative Homans, 1+ edema Objective Labs Result Diagrams: 02/27/21 06:23 Assessment & Plan Plan day: 2 plan OB: discharge home Time Spent With Patient Time: Total time spent is greater than 50% in coordination of care (as documented) at patient's floor/unit and/or counseling patient: Time with patient: 15-24 minutes
--- NOTE | 2021-02-28 09:48 | P.DS_ITS ---
Discharge Providers Provider Date of admission: 02/26/21 08:37 Discharge Date: 02/28/21 Primary care physician: Yudelka Lee MD Consults: 02/26/21 13:10 Consult to Cash Person Routine Comment: Discharge provider: Lauren Steve MD Summary Hospital Course Date Patient Seen: 02/28/21 Time Patient Seen: 09:48 Diagnoses: Estimated gestational age of 39 weeks Previous section x2 Repeat low-transverse section Hospital Course: Patient is a 30-year-old 4 para 3 who presented on February 26, 2021 for a scheduled repeat low-transverse section. She underwent this procedure without complication. Her postoperative course was unremarkable. She has been able to void without the catheter. She is tolerating a diet. She is passing flatus. No nausea or vomiting. Pain well controlled. She is ambulating independently. is going well. Peripartum Data Delivery Method: Section Laceration Description: None Episiotomy description: None Procedures: Spinal anesthesia Repeat low-transverse section complications: none [place] 1: Gender: Male Disposition of : home Status at Discharge Cognitive/behavioral status at discharge: oriented Functional status at discharge: independent ambulation Overall status at discharge: patient is progressing back to baseline Time Spent with Patient Time attestation: Total time spent providing and/or coordinating discharge services: Time spent: Less than 30 minutes Objective Labs Result Diagrams: 02/27/21 06:23 Exam Vital Signs (past 8 hours): Oxygen Delivery Method Room Air Narrative Exam Narrative: Generally: Patient is sitting up in bed, no acute distress Lungs: Clear to auscultation bilaterally Cardiovascular: Regular rate and rhythm Abdomen: Good bowel sounds in all 4 quadrants Fundus: Firm at U-2 Incision: Clean dry and intact with Aquacel dressing Extremities: 1+ edema, negative Homans Discharge Plan Discharge Plan Patient Disposition: Home Provider Discharge Comment: Call with fever, chills, or bleeding vaginally more than a pad in an hour Tylenol 650 mg every 6 hours as needed Ibuprofen 600 mg every 6 hours Stool softener until bowel returns to normal Push oral fluids Discharge orders & Medications Prescriptions: New oxycodone 10 mg tablet 10 mg PO Q4H PRN (Reason: pain) Qty: 20 RF: 0 ibuprofen 600 mg tablet 600 mg PO QID PRN (Reason: pain or cramping) Qty: 20 RF: 2 Continued prenat.vits,ryann,[id number] Tablet 1 tab PO DAILY RF: 0 Discontinued aspirin [Adult Aspirin Regimen] 81 mg tablet,delayed release (DR/EC) 81 mg PO DAILY Qty: 90 RF: 2 progesterone micronized 100 mg capsule 100 mg PO BEDTIME Qty: 30 RF: 2 No Action (DME) blood-glucose meter Misc See Rx Instructions .MEDSUPPLY Qty: 1 RF: 0 (DME) lancets-blood glucose strips 30 gauge combo pack See Rx Instructions .MEDSUPPLY Qty: 100 RF: 2 Follow up/Referrals: Lauren Steve MD [Family Provider] - (please follow-up with Dr. Steve on 03/04/21 at 8:15am for aquacell dressing removal. 6 week Post follow-up with Dr. Steve on 04/02/21 at 3:30pm. Questions, concerns, or need to reschedule please call [phone]) Diet/Activity/Treatments Diet: Regular Activity: Nothing in the vagina for 6 weeks Skin/Wound/Dressing Care Report to your healthcare provider any signs of infection, such as:: chills, fever, increased pain, unusual drainage and unusual redness Dressing: Do not remove Visit Report/Discharge Packet Instructions: DI for , DI for Prescription Opioid Use Stand Alone Forms: Discharge: Care Discharge Data Primary Care Provider: Yudelka Lee
[2021-02-28 10:58] VITALS: BP 111/67; PULSE 70; RESP 14; TEMP 36.8
== END 2021-02-28 11:40 | disposition home or self-care (01) | DRG 788 ==
PROVIDERS: Admitting Provider Obstetrics & Gynecology; Family Provider Obstetrics & Gynecology; PCP Student in an Organized Health Care Education/Training Program; Referring Provider Obstetrics & Gynecology; Visit Provider Obstetrics & Gynecology
PROC: 10D00Z1 Extraction of Products of Conception, Low, Open Approach (ICD-10-PCS; CPT 59514; principal; 2021-02-26 10:45)
DX: O34.211 Maternal care for low transverse scar from previous cesarean delivery (principal); Z3A.39 39 weeks gestation of pregnancy; Z37.0 Single live birth
CPT/HCPCS: 36415; 59050; 59510; 59514; 85014; 85018; 85025; 86850; 86900; 86901; J0131; J0690; J1885; J2590

== ENCOUNTER 2021-11-27 11:15 | Outpatient (RCR) | payer OTHER, SELFPAY ==
--- NOTE | 2021-06-26 19:44 | PT.OIE ---
Current Diagnoses Unspecified abdominal hernia without obstruction or gangrene (06/26/21) Separation of muscle (nontraumatic), other site (06/26/21) Past Medical History (Last Updated 05/07/21 @ 10:49 by Ema Ortega MD) A-fib (~2016) Anxiety (~2015) Bronchitis (~2002) Constipation (~2017) Depression (~2015) Diastasis recti Gestational diabetes (~12/2017) Hx laparoscopic cholecystectomy (~2019) Hx of section Hx of colonoscopy (~2015) Migraine with aura (~2011) Normal colonoscopy Vanishing twin syndrome Kress teeth extracted (~01/2008) Past Surgical History (Last Updated 07/25/20 @ 13:39 by Carole Crespo RN) Hx laparoscopic cholecystectomy (~2019) Hx of section Hx of colonoscopy (~2015) Kress teeth extracted (~01/2008) Visit Care Team Role Provider Type Lauren Steve MD Family Provider Physician Specialty: Gynecology [facility] SENIOR SPECIALIST Obstetrics Address: [address] [place] [address], [id number] Email: [email or web address] Yudelka Lee MD Attending Provider Non-Staff Primary Care Provider Referring Provider Specialty: Medical Address: [address] [place] [address], [id number] Email: Physical Therapy Initial Evaluation PT-OP-A Visit Information Start: 06/19/21 16:55 Freq: Status: Active Protocol: Document 06/26/21 13:07 LRN (Rec: 06/26/21 19:30 LRN [id number]) Out-Patient Physical Therapy Visit Information Visit Information Visit Type Initial Evaluation Visit Note 05/07 Visit Start Time 14:38 Visit Stop Time 15:30 Total Visit Minutes 52 Visit Number 1 Evaluation Information Evaluation Date 06/26/21 Precautions Precautions Per pt report and intake form: Abdominal hernia. gall bladder removed in 03/2020. Has had a hx of miscarriage and currently spouse deployed, , ADHD, Depression & anxiety, oldest son is autistic. PT-OP-B Current Condition Start: 06/19/21 16:55 Freq: Status: Active Protocol: Document 06/26/21 13:07 LRN (Rec: 06/26/21 19:30 LRN [id number]) Current Condition History of Current Condition Onset Date 02/26/2021 of 3rd son Current Complaints abdominal pain, PF weakness, incontinence, constipation. History of Current Condition Diastasis Rectus (DR) since first son's 06/19/2015. Was not able to get medical care, complaining she could not get any doctors to take her seriously. At the end of 2016 (Mar 2018 had 2nd son) found out she had a DR and had PT in 2017 for ~6 weeks from an orthopedic therapist. Pt states PT was helpful but therapist wasn't familiar with DR. Pt states she has a DR from sternum to belly button. Currently pain radiates from abdomen to anterior chest and causes low back pain. She obtains pain relief by lying prone, drinking cold water (to relieve burning sensation) or by applying pressure in the abdomen. She notes her DR causes a little incontinence because pain sometimes makes her nauseous and when she vomits she has urinary leakage . Additionally, she reports that after her gall bladder was removed she had trouble with BM's and because of her abdominal wall, it is hard to push stool out. Pt has familial support in her sister , who is also stationed at the base in [place]. Sometimes her is deployed. She plans to consider surgery if pain continues. . Prior Treatments and Tests Wears spanx daily since 2016. 200#, 5'4 (BMI is 34.3; healthy weight is 18.5-34.9, > 30 = obese) Developmental History Developmental History Pt is 5, Parity 3. She reports her last son Cook was born 02/26/2021, who had a twin sister, who passed at 2 months in utero Treatment Goals Patient/Caregiver Goals Pt goal is to strengthen the abdominal muscles and PF. Pt goal is to see the abdominal bulge go away, and relieve abdominal pain. Pt goal is to know ex's appropriate for abdominal wall . Prior Functional Status Baseline Function- ADL's Independent Baseline Function- Mobility Independent Baseline Function- Other Exercises for a little in 2019 , cardio eliptical and yoga and sometimes the bike. Current Functional Impairments (Reported) Functional Limitations- ADL's When home from deployment her spouse helps 1x/week, spouse works nights. Functional Limitations- Other Not currently exercising. Personal Factors Other Personal Factors That May Effect Mom of 3 boys, ages 6, 3 and 4 Therapy/Recovery months. Loss of girl baby from recent at 2 month in utero. BMI is 34.3; healthy weight is 18.5-34.9, >30 = obese Spouse sometimes not available due to deployment, currently deployed. Autistic 16 yr old son, Paraguard IUD Currently ADHD, depression and anxiety. PT-OP-C Subjective Start: 06/19/21 16:55 Freq: Status: Active Protocol: Document 06/26/21 13:07 LRN (Rec: 06/26/21 19:30 LRN [id number]) Patient Questionnaires Pelvic Pain and Urgency/Frequency Patient Symptom Scale Pelvic Pain Score 6 PT-OP-I Pelvic Floor Start: 06/19/21 16:55 Freq: Status: Active Protocol: Document 06/26/21 13:07 LRN (Rec: 06/26/21 19:30 LRN [id number]) Pelvic Floor Assessment Urine Urinary Symptoms Dribbling After Urination Leakage Size Small Leakage Cause Cough,Exercise,Sneeze Voiding Frequency 5-7 times per day Nocturia 1 Pads Used In 24 Hours 1 Urine Pad Type Panty Liner Bowel Bowel Surgery No Bowel Symptoms Constipation Bowel Movement Frequency 2-4x/week [place] Stool Chart Type 1-7 3 [place] Stool Chart Comments Stools range from 1-4, averages 2-3. Pelvic Clock Pelvic Clock Other 6 O'Clock Tightness Pt has very small vaginal opening. 3-6 O'Clock pt reported strange sensation but denied pain. Perineal Descent Resting Absent Bearing Absent Contraction Ability Manual Muscle Testing Left 3 Manual Muscle Testing Right 2 Manual Muscle Testing Anterior 0 Manual Muscle Testing Posterior 3 Muscle Endurance (Seconds) 3 Number of Quick Contractions In 10 2 Seconds PT-OP-J Posture/Palpation/Skin Start: 06/19/21 16:55 Freq: Status: Active Protocol: Document 06/26/21 13:07 LRN (Rec: 06/26/21 19:30 LRN [id number]) Posture Evaluation Position Standing Head/C-Spine Posture Forward Head T-Spine Posture Flattened L-Spine Posture Decreased Lordosis Pelvis Posture Neutral Knee Posture (L) Genu Valgus,(R) Genu Valgus Comments Posture Comments Dowagers hump PT-OP-K Range of Motion Start: 02/25/22 16:55 Freq: Status: Active Protocol: Document 06/26/21 13:07 LRN (Rec: 06/26/21 19:30 LRN [id number]) Lumbar Spine Range of Motion Lumbar Spine Active Degrees Testing Position Standing Flexion 90 Extension 15 Rotation Left 25 Rotation Right 20 Lateral Flexion Left 20 Lateral Flexion Right 12 ROM Limitations Pain Comments Pain with ext and R SB, Hip Goniometric Range of Motion Hip Right Passive Testing Position Supine Internal Rotation 40 External Rotation 80 Left Passive Testing Position Supine Internal Rotation 45 External Rotation 80 PT-OP-M Strength Start: 06/19/21 16:55 Freq: Status: Active Protocol: Document 06/26/21 13:07 LRN (Rec: 06/26/21 19:30 LRN [id number]) Trunk Strength Trunk Manual Muscle Testing Testing Position Supine Core Stabilization Pt not able to perform a TA. Hip Strength Hip Manual Muscle Testing Right External Rotation 5 Normal Internal Rotation 5 Normal Left External Rotation 4 Good Internal Rotation 5 Normal PT-OP-Q Treatments Start: 06/19/21 16:55 Freq: Status: Active Protocol: Document 06/26/21 13:07 LRN (Rec: 06/26/21 19:30 LRN [id number]) Self-Care/Home Management Treatment Education Other Education Pt educated in use of Bladder Diary and I/S in tracking of bladder and bowel movements for 1 week. Discussed use of 2 different diaries for tracking of bladder/bowel. Discussed results of evaluation, goals, and plan of care (POC). Pt agreeable to goals and POC. Activities Self-Care/Home Management Activities Issued & reviewed HEP: Tanvi ex's and discussed exercise of Quick Flicks, Long Holds and awareness of PF contraction in the absence of gluteals, abdominal and hip AD muscles. PT-OP-T Assessment and Plan Start: 06/19/21 16:55 Freq: Status: Active Protocol: Document 06/26/21 13:07 LRN (Rec: 06/26/21 19:30 LRN [id number]) Physical Therapy Assessment Rehab Potential Rehabilitation Potential Good Evaluation Complexity Number of Personal Factors/Comorbidities 3 or More Number of Body Systems Impaired 4 or More Clinical Presentation at Evaluation Evolving Impairments Impairments Activity Tolerance,Pain, Posture,ROM,Soft Tissue Mobility,Strength,Transfers Goals Five Impairment Constipation Impairment BM's 2-4 times a week with stool types 1-4, avg 2-3. Short Term Goal (STG) Pt will be educated in bowel program and bowel massage. STG Duration 07/03/21 Channeler Goal (LTG) Pt will improve number of BM's per week with stool types 3-4 . LTG Duration 07/24/21 Four Impairment Pt not able to perform an isolated PF contraction Short Term Goal (STG) Pt will be able to perform a PF contraction in the absence of abdominal/gluteal muscles. STG Duration 07/24/21 Mcc Goal (LTG) Pt will be able to maintain urinary continence in the presence of a cough or sneeze. LTG Duration 09/24/21 Three Impairment Low back and abdominal pain rated 6-8/10. Impairment Poor core stability with onset of LBP and abdominal pain rated 6-8/10. Short Term Goal (STG) Decrease LBP to no greater than 3/10. STG Duration 08/14/21 Mcc Goal (LTG) Decrease abdominal pain on average to less than 6/10 ( initial eval pain rated 6-8/10 ) with occasional higher rated pain. LTG Duration 09/24/21 Two Impairment Decreased core stability and abdominal DR Impairment Pt not able to perform a TA resulting in bulging of the belly with abdominal tightening. DR: Above Umbilicus: 4-shallow & closed, 3-2.5 finger width & shallow, 2-3 finger widths w/pain, 1-4 finger widths w/ pain. Below Umbilicus: 3 - shallow , closed, 2 - 2.5 finger width, 1 - 3.5 finger width Short Term Goal (STG) Education in core/canister pressures and strategies to decrease PF pressures with coughing. Decrease in DR with reduction in abdominal bulge. STG Duration 08/14/21 Mcc Goal (LTG) Improve strengthen with pt able to perform a TA and stabilize the core with movement of the LE's and a decrease in abdominal pain. LTG Duration 09/24/21 One Impairment Pt lacks self care HEP. Short Term Goal (STG) Pt will be educated in ex's appropriate for abdominal wall at her current condition (TA & core stabilization ex's). STG Duration 07/23/21 Mcc Goal (LTG) Pt will be independent with HEP of core and pelvic floor stretches and isolated PF strengthening exercises. LTG Duration 09/24/21 Assessment Summary Assessment Pt is a 30 year old female, 4 and Parity 3. Recent of son on 02/26/21 and loss of his twin sister at 2 months old in utero. Records indicate vanishing twin at 7 weeks. Pt BMI is 34 .3 (healthy weight is 18.5-34. 9, >30 = obese). The pt has complaints of abdominal and back pain and she does present with a considerable DR (see measurements above). She demonstrates poor ability to contract her TA; therefore demonstrating very poor anterior core stability. I feel her poor anterior core stability is a huge contributor to her low back pain. The pt also present with mild stress urinary leakage due to tightness of her PF and very poor coordination of her ability to contract the pelvic floor. Additionally, the pt shows symptoms of constipation that may also be contributing to her abdominal pain, back pain and PF dysfunction. The pt will benefit from skilled physical therapy to achieve the above stated goals, but due to her multiple comorbidities and her current breast feeding status her rehabilitation is expected to be considerably prolonged. Physical Therapy Plan Frequency and Duration Frequency of Treatment 1x/Week Plan of Care Start Date 06/26/21 Plan of Care End Date 09/24/21 Therapeutic Interventions Therapeutic Interventions Home Exercise Program,Manual Therapy,Neuromuscular Re- education,Patient/Caregiver Education,Self-Care/Home Management,Soft Tissue Mobilization,Taping, Therapeutic Activities, Therapeutic Exercises Modalities Cold Pack/Ice Massage,Hot Packs Next Visit Focus/Plan Next Note Type Treatment Note Next Visit Plan Review Bladder diary and make recommendations to her fluid intake and diet as appropriate . Educate pt in bowel program and bowel massage, stool types (issue handout), Initiate Core stabilization of TA tightening. Assess hip and core strength, Discuss/educate in core pressure system & appropriate breathwork for exercise, stool voiding and with transfer. Assess for pelvic asymmetry. Exer & HEP: Hip IR and low back (flex,SB, R rot), PF stretching and core strengthening. Educate pt on PF contractions in isolation of substitute muscles. Assess for SIJ balancing.
--- NOTE | 2021-06-26 20:08 | PT.OIE ---
Current Diagnoses Unspecified abdominal hernia without obstruction or gangrene (06/26/21) Constipation, unspecified (06/26/21) Low back pain, unspecified (06/26/21) Separation of muscle (nontraumatic), other site (06/26/21) Stress incontinence (female) (male) (06/26/21) Past Medical History (Last Updated 05/07/21 @ 10:49 by Ema Ortega MD) A-fib (~2016) Anxiety (~2015) Bronchitis (~2002) Constipation (~2017) Depression (~2015) Diastasis recti Gestational diabetes (~12/2017) Hx laparoscopic cholecystectomy (~2019) Hx of section Hx of colonoscopy (~2015) Migraine with aura (~2011) Normal colonoscopy Vanishing twin syndrome Combs teeth extracted (~01/2008) Past Surgical History (Last Updated 07/25/20 @ 13:39 by Carole Crespo RN) Hx laparoscopic cholecystectomy (~2019) Hx of section Hx of colonoscopy (~2015) Combs teeth extracted (~01/2008) Visit Care Team Role Provider Type Lauren Steve MD Family Provider Physician 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 Address: [address] [place] [address], [facility] Email: [email or web address] Lee MD Attending Provider Non-Staff Primary Care Provider Referring Provider Specialty: Medical Address: [address] [place] [address], [facility] Email: Physical Therapy Initial Evaluation PT-OP-A Visit Information Start: 06/19/21 16:55 Freq: Status: Active Protocol: Document 06/26/21 13:07 LRN (Rec: 06/26/21 19:30 LRN [id number]) Out-Patient Physical Therapy Visit Information Visit Information Visit Type Initial Evaluation Visit Note 05/07 Visit Start Time 14:38 Visit Stop Time 15:30 Total Visit Minutes 52 Visit Number 1 Evaluation Information Evaluation Date 06/26/21 Precautions Precautions Per pt report and intake form: Abdominal hernia. gall bladder removed in 03/2020. Has had a hx of miscarriage and currently spouse deployed, , ADHD, Depression & anxiety, oldest son is autistic. PT-OP-B Current Condition Start: 06/19/21 16:55 Freq: Status: Active Protocol: Document 06/26/21 13:07 LRN (Rec: 06/26/21 19:30 LRN [id number]) Current Condition History of Current Condition Onset Date 02/26/2021 of 3rd son Current Complaints abdominal pain, PF weakness, incontinence, constipation. History of Current Condition Diastasis Rectus (DR) since first son's 06/19/2015. Was not able to get medical care, complaining she could not get any doctors to take her seriously. At the end of 2016 (Mar 2018 had 2nd son) found out she had a DR and had PT in 2017 for ~6 weeks from an orthopedic therapist. Pt states PT was helpful but therapist wasn't familiar with DR. Pt states she has a DR from sternum to belly button. Currently pain radiates from abdomen to anterior chest and causes low back pain. She obtains pain relief by lying prone, drinking cold water (to relieve burning sensation) or by applying pressure in the abdomen. She notes her DR causes a little incontinence because pain sometimes makes her nauseous and when she vomits she has urinary leakage . Additionally, she reports that after her gall bladder was removed she had trouble with BM's and because of her abdominal wall, it is hard to push stool out. Pt has familial support in her sister , who is also stationed at the base in [place]. Sometimes her is deployed. She plans to consider surgery if pain continues. . Prior Treatments and Tests Wears spanx daily since 2016. 200#, 5'4 (BMI is 34.3; healthy weight is 18.5-34.9, > 30 = obese) Developmental History Developmental History Pt is 5, Parity 3. She reports her last son Cook was born 02/26/2021, who had a twin sister, who passed at 2 months in utero Treatment Goals Patient/Caregiver Goals Pt goal is to strengthen the abdominal muscles and PF. Pt goal is to see the abdominal bulge go away, and relieve abdominal pain. Pt goal is to know ex's appropriate for abdominal wall . Prior Functional Status Baseline Function- ADL's Independent Baseline Function- Mobility Independent Baseline Function- Other Exercises for a little in 2019 , cardio eliptical and yoga and sometimes the bike. Current Functional Impairments (Reported) Functional Limitations- ADL's When home from deployment her spouse helps 1x/week, spouse works nights. Functional Limitations- Other Not currently exercising. Personal Factors Other Personal Factors That May Effect Mom of 3 boys, ages 6, 3 and 4 Therapy/Recovery months. Loss of girl baby from recent at 2 month in utero. BMI is 34.3; healthy weight is 18.5-34.9, >30 = obese Spouse sometimes not available due to deployment, currently deployed. Autistic 16 yr old son, Paraguard IUD Currently ADHD, depression and anxiety. PT-OP-C Subjective Start: 06/19/21 16:55 Freq: Status: Active Protocol: Document 06/26/21 13:07 LRN (Rec: 06/26/21 19:30 LRN [id number]) Patient Questionnaires Pelvic Pain and Urgency/Frequency Patient Symptom Scale Pelvic Pain Score 6 PT-OP-I Pelvic Floor Start: 06/19/21 16:55 Freq: Status: Active Protocol: Document 06/26/21 13:07 LRN (Rec: 06/26/21 19:30 LRN [id number]) Pelvic Floor Assessment Urine Urinary Symptoms Dribbling After Urination Leakage Size Small Leakage Cause Cough,Exercise,Sneeze Voiding Frequency 5-7 times per day Nocturia 1 Pads Used In 24 Hours 1 Urine Pad Type Panty Liner Bowel Bowel Surgery No Bowel Symptoms Constipation Bowel Movement Frequency 2-4x/week [place] Stool Chart Type 1-7 3 [place] Stool Chart Comments Stools range from 1-4, averages 2-3. Pelvic Clock Pelvic Clock Other 6 O'Clock Tightness Pt has very small vaginal opening. 3-6 O'Clock pt reported strange sensation but denied pain. Perineal Descent Resting Absent Bearing Absent Contraction Ability Manual Muscle Testing Left 3 Manual Muscle Testing Right 2 Manual Muscle Testing Anterior 0 Manual Muscle Testing Posterior 3 Muscle Endurance (Seconds) 3 Number of Quick Contractions In 10 2 Seconds PT-OP-J Posture/Palpation/Skin Start: 06/19/21 16:55 Freq: Status: Active Protocol: Document 06/26/21 13:07 LRN (Rec: 06/26/21 19:30 LRN [id number]) Posture Evaluation Position Standing Head/C-Spine Posture Forward Head T-Spine Posture Flattened L-Spine Posture Decreased Lordosis Pelvis Posture Neutral Knee Posture (L) Genu Valgus,(R) Genu Valgus Comments Posture Comments Dowagers hump PT-OP-K Range of Motion Start: 06/19/21 16:55 Freq: Status: Active Protocol: Document 06/26/21 13:07 LRN (Rec: 06/26/21 19:30 LRN [id number]) Lumbar Spine Range of Motion Lumbar Spine Active Degrees Testing Position Standing Flexion 90 Extension 15 Rotation Left 25 Rotation Right 20 Lateral Flexion Left 20 Lateral Flexion Right 12 ROM Limitations Pain Comments Pain with ext and R SB, Hip Goniometric Range of Motion Hip Right Passive Testing Position Supine Internal Rotation 40 External Rotation 80 Left Passive Testing Position Supine Internal Rotation 45 External Rotation 80 PT-OP-M Strength Start: 06/19/21 16:55 Freq: Status: Active Protocol: Document 06/26/21 13:07 LRN (Rec: 06/26/21 19:30 LRN [id number]) Trunk Strength Trunk Manual Muscle Testing Testing Position Supine Core Stabilization Pt not able to perform a TA. Hip Strength Hip Manual Muscle Testing Right External Rotation 5 Normal Internal Rotation 5 Normal Left External Rotation 4 Good Internal Rotation 5 Normal PT-OP-Q Treatments Start: 06/19/21 16:55 Freq: Status: Active Protocol: Document 06/26/21 13:07 LRN (Rec: 06/26/21 19:30 LRN [id number]) Self-Care/Home Management Treatment Education Other Education Pt educated in use of Bladder Diary and I/S in tracking of bladder and bowel movements for 1 week. Discussed use of 2 different diaries for tracking of bladder/bowel. Discussed results of evaluation, goals, and plan of care (POC). Pt agreeable to goals and POC. Activities Self-Care/Home Management Activities Issued & reviewed HEP: Tanvi ex's and discussed exercise of Quick Flicks, Long Holds and awareness of PF contraction in the absence of gluteals, abdominal and hip AD muscles. PT-OP-T Assessment and Plan Start: 06/19/21 16:55 Freq: Status: Active Protocol: Document 06/26/21 13:07 LRN (Rec: 06/26/21 19:30 LRN [id number]) Physical Therapy Assessment Rehab Potential Rehabilitation Potential Good Evaluation Complexity Number of Personal Factors/Comorbidities 3 or More Number of Body Systems Impaired 4 or More Clinical Presentation at Evaluation Evolving Impairments Impairments Activity Tolerance,Pain, Posture,ROM,Soft Tissue Mobility,Strength,Transfers Goals Five Impairment Constipation Impairment BM's 2-4 times a week with stool types 1-4, avg 2-3. Short Term Goal (STG) Pt will be educated in bowel program and bowel massage. STG Duration 07/03/21 [place] Goal (LTG) Pt will improve number of BM's per week with stool types 3-4 . LTG Duration 07/24/21 Four Impairment Pt not able to perform an isolated PF contraction Short Term Goal (STG) Pt will be able to perform a PF contraction in the absence of abdominal/gluteal muscles. STG Duration 07/24/21 [place] Goal (LTG) Pt will be able to maintain urinary continence in the presence of a cough or sneeze. LTG Duration 09/24/21 Three Impairment Low back and abdominal pain rated 6-8/10. Impairment Poor core stability with onset of LBP and abdominal pain rated 6-8/10. Short Term Goal (STG) Decrease LBP to no greater than 3/10. STG Duration 08/14/21 [place] Goal (LTG) Decrease abdominal pain on average to less than 6/10 ( initial eval pain rated 6-8/10 ) with occasional higher rated pain. LTG Duration 09/24/21 Two Impairment Decreased core stability and abdominal DR Impairment Pt not able to perform a TA resulting in bulging of the belly with abdominal tightening. DR: Above Umbilicus: 4-shallow & closed, 3-2.5 finger width & shallow, 2-3 finger widths w/pain, 1-4 finger widths w/ pain. Below Umbilicus: 3 - shallow , closed, 2 - 2.5 finger width, 1 - 3.5 finger width Short Term Goal (STG) Education in core/canister pressures and strategies to decrease PF pressures with coughing. Decrease in DR with reduction in abdominal bulge. STG Duration 08/14/21 Snf Goal (LTG) Improve strengthen with pt able to perform a TA and stabilize the core with movement of the LE's and a decrease in abdominal pain. LTG Duration 09/24/21 One Impairment Pt lacks self care HEP. Short Term Goal (STG) Pt will be educated in ex's appropriate for abdominal wall at her current condition (TA & core stabilization ex's). STG Duration 07/23/21 [place] Goal (LTG) Pt will be independent with HEP of core and pelvic floor stretches and isolated PF strengthening exercises. LTG Duration 09/24/21 Assessment Summary Assessment Pt is a 30 year old female, 4 and Parity 3. Recent of son on 02/26/21 and loss of his twin sister at 2 months old in utero. Records indicate vanishing twin at 7 weeks. Pt BMI is 34 .3 (healthy weight is 18.5-34. 9, >30 = obese). The pt has complaints of abdominal and back pain and she does present with a considerable DR (see measurements above). She demonstrates poor ability to contract her TA; therefore demonstrating very poor anterior core stability. I feel her poor anterior core stability is a huge contributor to her low back pain. The pt also present with mild stress urinary leakage due to tightness of her PF and very poor coordination of her ability to contract the pelvic floor. Additionally, the pt shows symptoms of constipation that may also be contributing to her abdominal pain, back pain and PF dysfunction. The pt will benefit from skilled physical therapy to achieve the above stated goals, but due to her multiple comorbidities and her current breast feeding status her rehabilitation is expected to be considerably prolonged. Physical Therapy Plan Frequency and Duration Frequency of Treatment 1x/Week Plan of Care Start Date 06/26/21 Plan of Care End Date 09/24/21 Therapeutic Interventions Therapeutic Interventions Home Exercise Program,Manual Therapy,Neuromuscular Re- education,Patient/Caregiver Education,Self-Care/Home Management,Soft Tissue Mobilization,Taping, Therapeutic Activities, Therapeutic Exercises Modalities Cold Pack/Ice Massage,Hot Packs Next Visit Focus/Plan Next Note Type Treatment Note Next Visit Plan Review Bladder diary and make recommendations to her fluid intake and diet as appropriate . Educate pt in bowel program and bowel massage, stool types (issue handout), Initiate Core stabilization of TA tightening. Assess hip and core strength, Discuss/educate in core pressure system & appropriate breathwork for exercise, stool voiding and with transfer. Assess for pelvic asymmetry. Exer & HEP: Hip IR and low back (flex,SB, R rot), PF stretching and core strengthening. Educate pt on PF contractions in isolation of substitute muscles. Assess for SIJ balancing.
--- NOTE | 2021-07-03 15:37 | PT.OTN ---
Current Diagnoses Unspecified abdominal hernia without obstruction or gangrene (07/03/21) Constipation, unspecified (07/03/21) Low back pain, unspecified (07/03/21) Separation of muscle (nontraumatic), other site (07/03/21) Stress incontinence (female) (male) (07/03/21) Physical Therapy Treatment Note PT-OP-A Visit Information Start: 06/19/21 16:55 Freq: Status: Active Protocol: Document 07/03/21 13:59 LRN (Rec: 07/03/21 15:36 LRN [id number]) Out-Patient Physical Therapy Visit Information Visit Information Visit Type Treatment Note Visit Start Time 13:59 Visit Stop Time 14:42 Total Visit Minutes 43 Visit Number 2 Precautions Precautions Per pt report and intake form: Abdominal hernia. gall bladder removed in 03/2020. Has had a hx of miscarriage and currently spouse deployed, , ADHD, Depression & anxiety, oldest son is autistic. PT-OP-B Current Condition Start: 06/19/21 16:55 Freq: Status: Active Protocol: Document 06/26/21 13:07 LRN (Rec: 06/26/21 19:30 LRN [id number]) Current Condition History of Current Condition Onset Date 02/26/2021 of 3rd son Current Complaints abdominal pain, PF weakness, incontinence, constipation. History of Current Condition Diastasis Rectus (DR) since first son's 06/19/2015. Was not able to get medical care, complaining she could not get any doctors to take her seriously. At the end of 2016 (Mar 2018 had 2nd son) found out she had a DR and had PT in 2017 for ~6 weeks from an orthopedic therapist. Pt states PT was helpful but therapist wasn't familiar with DR. Pt states she has a DR from sternum to belly button. Currently pain radiates from abdomen to anterior chest and causes low back pain. She obtains pain relief by lying prone, drinking cold water (to relieve burning sensation) or by applying pressure in the abdomen. She notes her DR causes a little incontinence because pain sometimes makes her nauseous and when she vomits she has urinary leakage . Additionally, she reports that after her gall bladder was removed she had trouble with BM's and because of her abdominal wall, it is hard to push stool out. Pt has familial support in her sister , who is also stationed at the base in [place]. Sometimes her is deployed. She plans to consider surgery if pain continues. . Prior Treatments and Tests Wears spanx daily since 2017. 200#, 5'4 (BMI is 34.3; healthy weight is 18.5-34.9, > 30 = obese) Developmental History Developmental History Pt is 5, Parity 3. She reports her last son Cook was born 02/26/2021, who had a twin sister, who passed at 2 months in utero Treatment Goals Patient/Caregiver Goals Pt goal is to strengthen the abdominal muscles and PF. Pt goal is to see the abdominal bulge go away, and relieve abdominal pain. Pt goal is to know ex's appropriate for abdominal wall . Prior Functional Status Baseline Function- ADL's Independent Baseline Function- Mobility Independent Baseline Function- Other Exercises for a little in 2019 , cardio eliptical and yoga and sometimes the bike. Current Functional Impairments (Reported) Functional Limitations- ADL's When home from deployment her spouse helps 1x/week, spouse works nights. Functional Limitations- Other Not currently exercising. Personal Factors Other Personal Factors That May Effect Mom of 3 boys, ages 6, 3 and 4 Therapy/Recovery months. Loss of girl baby from recent at 2 month in utero. BMI is 34.3; healthy weight is 18.5-34.9, >30 = obese Spouse sometimes not available due to deployment, currently deployed. Autistic 16 yr old son, Paraguard IUD Currently ADHD, depression and anxiety. PT-OP-C Subjective Start: 06/19/21 16:55 Freq: Status: Active Protocol: Document 07/03/21 13:59 LRN (Rec: 07/03/21 15:36 LRN [id number]) OP-PT Subjective Patient Comments Patient Comments Started to bladder diary but forgot at home. Generally: voids/baldder are 6-9 secs. 9 secs after sleeping. BM every other day and stay type 2 & 3. Food-ding microwave burritos, cereal and donuts and salted caramel latte every morning and sips it through the day. The caffiene helps ADHD because it helps her to focus. This past week noticed small leakage after peeing. Leakage minimal. Drinks 80 oz of water a day (wgt is 198.6# ). 5-7 voids per day including her nighttime urination. PT-OP-I Pelvic Floor Start: 06/19/21 16:55 Freq: Status: Active Protocol: Document 06/26/21 13:07 LRN (Rec: 06/26/21 19:30 LRN [id number]) Pelvic Floor Assessment Urine Urinary Symptoms Dribbling After Urination Leakage Size Small Leakage Cause Cough,Exercise,Sneeze Voiding Frequency 5-7 times per day Nocturia 1 Pads Used In 24 Hours 1 Urine Pad Type Panty Liner Bowel Bowel Surgery No Bowel Symptoms Constipation Bowel Movement Frequency 2-4x/week [place] Stool Chart Type 1-7 3 [place] Stool Chart Comments Stools range from 1-4, averages 2-3. Pelvic Clock Pelvic Clock Other 6 O'Clock Tightness Pt has very small vaginal opening. 3-6 O'Clock pt reported strange sensation but denied pain. Perineal Descent Resting Absent Bearing Absent Contraction Ability Manual Muscle Testing Left 3 Manual Muscle Testing Right 2 Manual Muscle Testing Anterior 0 Manual Muscle Testing Posterior 3 Muscle Endurance (Seconds) 3 Number of Quick Contractions In 10 2 Seconds PT-OP-J Posture/Palpation/Skin Start: 06/19/21 16:55 Freq: Status: Active Protocol: Document 06/26/21 13:07 LRN (Rec: 06/26/21 19:30 LRN [id number]) Posture Evaluation Position Standing Head/C-Spine Posture Forward Head T-Spine Posture Flattened L-Spine Posture Decreased Lordosis Pelvis Posture Neutral Knee Posture (L) Genu Valgus,(R) Genu Valgus Comments Posture Comments Dowagers hump PT-OP-K Range of Motion Start: 06/19/21 16:55 Freq: Status: Active Protocol: Document 06/26/21 13:07 LRN (Rec: 06/26/21 19:30 LRN [id number]) Lumbar Spine Range of Motion Lumbar Spine Active Degrees Testing Position Standing Flexion 90 Extension 15 Rotation Left 25 Rotation Right 20 Lateral Flexion Left 20 Lateral Flexion Right 12 ROM Limitations Pain Comments Pain with ext and R SB, Hip Goniometric Range of Motion Hip Right Passive Testing Position Supine Internal Rotation 40 External Rotation 80 Left Passive Testing Position Supine Internal Rotation 45 External Rotation 80 PT-OP-M Strength Start: 06/19/21 16:55 Freq: Status: Active Protocol: Document 06/26/21 13:07 LRN (Rec: 06/26/21 19:30 LRN [id number]) Trunk Strength Trunk Manual Muscle Testing Testing Position Supine Core Stabilization Pt not able to perform a TA. Hip Strength Hip Manual Muscle Testing Right External Rotation 5 Normal Internal Rotation 5 Normal Left External Rotation 4 Good Internal Rotation 5 Normal PT-OP-Q Treatments Start: 06/19/21 16:55 Freq: Status: Active Protocol: Document 07/03/21 13:59 LRN (Rec: 07/03/21 15:36 LRN [id number]) Therapeutic Exercises Supine Exercises Bowel massage Supine Exercise Name Bowel massage training - HEP Reps/Minutes 4' Comments v cuing for hand positioning and directions of movement. Sidelying Exercises TA tightening Sidelying Exercise Name TA tightening Side bilateral Reps/Minutes 8' Comments Phys & v cuing during ex to maintain neutral spine & hold during breathing Other Exercises 4 pt TA Other Exercise Name 4 pt TA Reps/Minutes 3' Comments Phys & v cuing during ex to maintain neutral spine & hold during breathing Therapeutic Activity Therapeutic Activity Transfer training for DR protection Name Sit<>Supine log roll trng & with DR protection ( approximation with towel) Reps/Minutes 8' Self-Care/Home Management Treatment Education Patient Education Home Exercise Program,Joint Protection Other Education Discussed and educated pt in proper hydration levels. Recommendations given to her fluid intake and diet. Educated pt in bowel program, bowel massage, stool types ( handout issued). Discussed & recommendations given on how to add vegs in her diet (having out on counter, using dips, cut up when meal prepping). Discussed and educated pt with handout issued for food/ beverages bladder diet. Discussed and educated pt with handout issued for bowel massage. Educated pt in foods & Beverages for Bladder Diet. Educated pt in TA anatomy with handout issued. Activities Self-Care/Home Management Activities I/S pt in HEP: TA tightening, DR protection with transfers , and log roll transfer in/out of bed. PT-OP-T Assessment and Plan Start: 06/19/21 16:55 Freq: Status: Active Protocol: Document 07/03/21 13:59 LRN (Rec: 07/03/21 15:36 LRN [id number]) Physical Therapy Assessment Goals Five Impairment Constipation Impairment BM's 2-4 times a week with stool types 1-4, avg 2-3. Short Term Goal (STG) Pt will be educated in bowel program and bowel massage. STG Duration 07/03/21 (07/03/21: MET GOAL) Fpc Goal (LTG) Pt will improve number of BM's per week with stool types 3-4 . LTG Duration 07/24/21 Four Impairment Pt not able to perform an isolated PF contraction Short Term Goal (STG) Pt will be able to perform a PF contraction in the absence of abdominal/gluteal muscles. STG Duration 07/24/21 Fpc Goal (LTG) Pt will be able to maintain urinary continence in the presence of a cough or sneeze. LTG Duration 09/24/21 Three Impairment Low back and abdominal pain rated 6-8/10. Impairment Poor core stability with onset of LBP and abdominal pain rated 6-8/10. Short Term Goal (STG) Decrease LBP to no greater than 3/10. STG Duration 08/14/21 Fpc Goal (LTG) Decrease abdominal pain on average to less than 6/10 ( initial eval pain rated 6-8/10 ) with occasional higher rated pain. LTG Duration 09/24/21 Two Impairment Decreased core stability and abdominal DR Impairment Pt not able to perform a TA resulting in bulging of the belly with abdominal tightening. DR: Above Umbilicus: 4-shallow & closed, 3-2.5 finger width & shallow, 2-3 finger widths w/pain, 1-4 finger widths w/ pain. Below Umbilicus: 3 - shallow , closed, 2 - 2.5 finger width, 1 - 3.5 finger width Short Term Goal (STG) Education in core/canister pressures and strategies to decrease PF pressures with coughing. Decrease in DR with reduction in abdominal bulge. STG Duration 08/14/21 Wafer Fabrication Technician Goal (LTG) Improve strengthen with pt able to perform a TA and stabilize the core with movement of the LE's and a decrease in abdominal pain. LTG Duration 09/24/21 One Impairment Pt lacks self care HEP. Short Term Goal (STG) Pt will be educated in ex's appropriate for abdominal wall at her current condition (TA & core stabilization ex's). (07/03/21: HEP: TA tightening in sup, side, sitting). STG Duration 07/23/21 (07/03/21: Progressed ). Fpc Goal (LTG) Pt will be independent with HEP of core and pelvic floor stretches and isolated PF strengthening exercises. LTG Duration 09/24/21 Progress Towards Goals Progress Comments STG *5 MET. Pt educated in bowel management and massage. Progressed HEP: I/S pt in HEP of TA tightening. Assessment Summary Assessment Pt attends with attentive 4 month old son. The pt forgot her bladder diary but reports all she can remember. It appears she has a normal urinary voiding frequency, and voidiing times, but has decreased fluid input (80 oz's , should be 100 oz without caffeine) decreased BM's ( every other day) and stool types 2-3; therefore pt presents as constipated. The pt is able to contract her TA and is able to hold fairly well during breathing, but overall weak. Her L TA appears to be weaker than the R side. The pt has poor awareness of her TA with transfer and general movements , but showed greater understanding and awareness after training. Physical Therapy Plan Frequency and Duration Frequency of Treatment 1x/Week Plan of Care Start Date 06/26/21 Plan of Care End Date 09/24/21 Next Visit Focus/Plan Next Note Type Treatment Note Next Visit Plan Initiate Core stabilization of TA tightening. Assess hip and core strength, Discuss/educate in core pressure system & appropriate breathwork for exercise, stool voiding and with transfer. Assess for pelvic asymmetry. Assess for SIJ balancing. Exer & HEP: Hip IR and low back (flex,SB, R rot), PF stretching and core strengthening. Educate pt on PF contractions in isolation of substitute muscles.
--- NOTE | 2021-07-10 14:54 | PT.OTN ---
Current Diagnoses Unspecified abdominal hernia without obstruction or gangrene (07/10/21) Constipation, unspecified (07/10/21) Low back pain, unspecified (07/10/21) Separation of muscle (nontraumatic), other site (07/10/21) Stress incontinence (female) (male) (07/10/21) Physical Therapy Treatment Note PT-OP-A Visit Information Start: 06/19/21 16:55 Freq: Status: Active Protocol: Document 07/10/21 13:49 LRN (Rec: 07/10/21 14:54 LRN [id number]) Out-Patient Physical Therapy Visit Information Visit Information Visit Type Treatment Note Visit Start Time 13:49 Visit Stop Time 14:32 Total Visit Minutes 43 Visit Number 3 Evaluation Information Evaluation Date 06/26/21 Precautions Precautions Per pt report and intake form: Abdominal hernia. gall bladder removed in 03/2020. Has had a hx of miscarriage and currently spouse deployed, , ADHD, Depression & anxiety, oldest son is autistic. PT-OP-B Current Condition Start: 06/19/21 16:55 Freq: Status: Active Protocol: Document 06/26/21 13:07 LRN (Rec: 06/26/21 19:30 LRN [id number]) Current Condition History of Current Condition Onset Date 02/26/2021 of 3rd son Current Complaints abdominal pain, PF weakness, incontinence, constipation. History of Current Condition Diastasis Rectus (DR) since first son's 06/19/2015. Was not able to get medical care, complaining she could not get any doctors to take her seriously. At the end of 2016 (Mar 2018 had 2nd son) found out she had a DR and had PT in 2017 for ~6 weeks from an orthopedic therapist. Pt states PT was helpful but therapist wasn't familiar with DR. Pt states she has a DR from sternum to belly button. Currently pain radiates from abdomen to anterior chest and causes low back pain. She obtains pain relief by lying prone, drinking cold water (to relieve burning sensation) or by applying pressure in the abdomen. She notes her DR causes a little incontinence because pain sometimes makes her nauseous and when she vomits she has urinary leakage . Additionally, she reports that after her gall bladder was removed she had trouble with BM's and because of her abdominal wall, it is hard to push stool out. Pt has familial support in her sister , who is also stationed at the base in [place]. Sometimes her is deployed. She plans to consider surgery if pain continues. . Prior Treatments and Tests Wears spanx daily since 2017. 200#, 5'4 (BMI is 34.3; healthy weight is 18.5-34.9, > 30 = obese) Developmental History Developmental History Pt is 5, Parity 3. She reports her last son Cook was born 02/26/2021, who had a twin sister, who passed at 2 months in utero Treatment Goals Patient/Caregiver Goals Pt goal is to strengthen the abdominal muscles and PF. Pt goal is to see the abdominal bulge go away, and relieve abdominal pain. Pt goal is to know ex's appropriate for abdominal wall . Prior Functional Status Baseline Function- ADL's Independent Baseline Function- Mobility Independent Baseline Function- Other Exercises for a little in 2019 , cardio eliptical and yoga and sometimes the bike. Current Functional Impairments (Reported) Functional Limitations- ADL's When home from deployment her spouse helps 1x/week, spouse works nights. Functional Limitations- Other Not currently exercising. Personal Factors Other Personal Factors That May Effect Mom of 3 boys, ages 6, 3 and 4 Therapy/Recovery months. Loss of girl baby from recent at 2 month in utero. BMI is 34.3; healthy weight is 18.5-34.9, >30 = obese Spouse sometimes not available due to deployment, currently deployed. Autistic 16 yr old son, Paraguard IUD Currently ADHD, depression and anxiety. PT-OP-C Subjective Start: 06/19/21 16:55 Freq: Status: Active Protocol: Document 07/10/21 13:49 LRN (Rec: 07/10/21 14:54 LRN [id number]) OP-PT Subjective Patient Comments Patient Comments ............ PT-OP-I Pelvic Floor Start: 06/19/21 16:55 Freq: Status: Active Protocol: Document 06/26/21 13:07 LRN (Rec: 06/26/21 19:30 LRN [id number]) Pelvic Floor Assessment Urine Urinary Symptoms Dribbling After Urination Leakage Size Small Leakage Cause Cough,Exercise,Sneeze Voiding Frequency 5-7 times per day Nocturia 1 Pads Used In 24 Hours 1 Urine Pad Type Panty Liner Bowel Bowel Surgery No Bowel Symptoms Constipation Bowel Movement Frequency 2-4x/week [place] Stool Chart Type 1-7 3 [place] Stool Chart Comments Stools range from 1-4, averages 2-3. Pelvic Clock Pelvic Clock Other 6 O'Clock Tightness Pt has very small vaginal opening. 3-6 O'Clock pt reported strange sensation but denied pain. Perineal Descent Resting Absent Bearing Absent Contraction Ability Manual Muscle Testing Left 3 Manual Muscle Testing Right 2 Manual Muscle Testing Anterior 0 Manual Muscle Testing Posterior 3 Muscle Endurance (Seconds) 3 Number of Quick Contractions In 10 2 Seconds PT-OP-J Posture/Palpation/Skin Start: 06/19/21 16:55 Freq: Status: Active Protocol: Document 06/26/21 13:07 LRN (Rec: 06/26/21 19:30 LRN [id number]) Posture Evaluation Position Standing Head/C-Spine Posture Forward Head T-Spine Posture Flattened L-Spine Posture Decreased Lordosis Pelvis Posture Neutral Knee Posture (L) Genu Valgus,(R) Genu Valgus Comments Posture Comments Dowagers hump PT-OP-K Range of Motion Start: 06/19/21 16:55 Freq: Status: Active Protocol: Document 06/26/21 13:07 LRN (Rec: 06/26/21 19:30 LRN [id number]) Lumbar Spine Range of Motion Lumbar Spine Active Degrees Testing Position Standing Flexion 90 Extension 15 Rotation Left 25 Rotation Right 20 Lateral Flexion Left 20 Lateral Flexion Right 12 ROM Limitations Pain Comments Pain with ext and R SB, Hip Goniometric Range of Motion Hip Right Passive Testing Position Supine Internal Rotation 40 External Rotation 80 Left Passive Testing Position Supine Internal Rotation 45 External Rotation 80 PT-OP-M Strength Start: 06/19/21 16:55 Freq: Status: Active Protocol: Document 07/10/21 13:49 LRN (Rec: 07/10/21 14:54 LRN [id number]) Hip Strength Hip Manual Muscle Testing Right Abduction 5 Normal Adduction 5 Normal External Rotation 5 Normal Internal Rotation 5 Normal Left Abduction 5 Normal Adduction 4+ Good+ External Rotation 4 Good Internal Rotation 5 Normal PT-OP-Q Treatments Start: 06/19/21 16:55 Freq: Status: Active Protocol: Document 07/10/21 13:49 LRN (Rec: 07/10/21 14:54 LRN [id number]) Therapeutic Exercises Sidelying Exercises Hip AD Sidelying Exercise Name Hip AD anson Side bilateral Comments MMT taken Hip AB Sidelying Exercise Name Hip AB anson Side bilateral Comments MMt Taken TA tightening Sidelying Exercise Name TA tightening/proper breathing Side bilateral Reps/Minutes 7' (10 H x 6 each) Comments Phys & v cuing during ex to maintain neutral spine & hold during breathing Sitting Exercises Salvatore hip IR stretch Sitting Exercise Name Hip IR stretch Side bilateral Reps/Minutes 6' R hip ER stretch Sitting Exercise Name R ankle over L knee Side right Reps/Minutes 2' Trunk rot Sitting Exercise Name Internal trunk rotators Side bilateral Reps/Minutes 10' Sit<>Stand Sitting Exercise Name TA/Breathing/pivoting @ hips for sit<>stand Reps/Minutes 8' Standing Exercises Stand<>supine Standing Exercise Name TA/Breathing/pivoting @ hips for stand<>sit Side bilateral Reps/Minutes 4' Self-Care/Home Management Treatment Education Other Education Educated pt in use of breathing for bowel management BM's. Discuss/educated pt in core pressure system & appropriate breathwork stool voiding and with transfer. Activities Self-Care/Home Management Activities I/S pt in HEP: Sitting: R hip IR/ER stretching & L hip IR stretching. PT-OP-T Assessment and Plan Start: 06/19/21 16:55 Freq: Status: Active Protocol: Document 07/10/21 13:49 LRN (Rec: 07/10/21 14:54 LRN [id number]) Physical Therapy Assessment Goals Five Impairment Constipation Impairment BM's 2-4 times a week with stool types 1-4, avg 2-3. Short Term Goal (STG) Pt will be educated in bowel program and bowel massage. STG Duration 07/03/21 (07/03/21: MET GOAL) Engineer And Geologist Goal (LTG) Pt will improve number of BM's per week with stool types 3-4 . LTG Duration 07/24/21 Four Impairment Pt not able to perform an isolated PF contraction Short Term Goal (STG) Pt will be able to perform a PF contraction in the absence of abdominal/gluteal muscles. STG Duration 07/24/21 Usp Goal (LTG) Pt will be able to maintain urinary continence in the presence of a cough or sneeze. LTG Duration 09/24/21 Three Impairment Low back and abdominal pain rated 6-8/10. Impairment Poor core stability with onset of LBP and abdominal pain rated 6-8/10. Short Term Goal (STG) Decrease LBP to no greater than 3/10. STG Duration 08/14/21 Engineer And Geologist Goal (LTG) Decrease abdominal pain on average to less than 6/10 ( initial eval pain rated 6-8/10 ) with occasional higher rated pain. LTG Duration 09/24/21 Two Impairment Decreased core stability and abdominal DR Impairment Pt not able to perform a TA resulting in bulging of the belly with abdominal tightening. DR: Above Umbilicus: 4-shallow & closed, 3-2.5 finger width & shallow, 2-3 finger widths w/pain, 1-4 finger widths w/ pain. Below Umbilicus: 3 - shallow , closed, 2 - 2.5 finger width, 1 - 3.5 finger width Short Term Goal (STG) Education in core/canister pressures and strategies to decrease PF pressures with coughing. (07/10/21: Pt educ in core/ canister pressure to decrease PF pressure) Decrease in DR with reduction in abdominal bulge. STG Duration 08/14/21 (07/10/21; Partially met goal; pt education complete) Usp Goal (LTG) Improve strengthen with pt able to perform a TA and stabilize the core with movement of the LE's and a decrease in abdominal pain. LTG Duration 09/24/21 One Impairment Pt lacks self care HEP. Short Term Goal (STG) Pt will be educated in ex's appropriate for abdominal wall at her current condition (TA & core stabilization ex's). (07/03/21: HEP: TA tightening in sup, side, sitting). STG Duration 07/23/21 (07/03/21: Progressed ). Usp Goal (LTG) Pt will be independent with HEP of core and pelvic floor stretches and isolated PF strengthening exercises. LTG Duration 09/24/21 Assessment Summary Assessment Pt able to perform TA with visible drawing in of abdomen with exercises. She is moderately able to maintain TA contraction with breathing. She has mild palpable contraction of internal obliques; therefore further trunk rot strengthening is needed. Physical Therapy Plan Frequency and Duration Frequency of Treatment 1x/Week Plan of Care Start Date 06/26/21 Plan of Care End Date 09/24/21 Next Visit Focus/Plan Next Note Type Treatment Note Next Visit Plan Educate pt in core/cansiter pressure system and method to cough to reduce core internal pressure. Progress Core stabilization of TA tightening. Assess hip ( flex/ext) and core strength, Discuss/educated pt in core pressure system & appropriate breathwork for exercises, Review hip IR/R ER stretches ( sitting), Assess for pelvic asymmetry. Assess for SIJ balancing. Add Exer & HEP: Hip IR and low back (flex,SB, R rot), PF stretching and core strengthening. Educate pt on PF contractions in isolation of substitute muscles (gluteal>abdominal).
--- NOTE | 2021-07-24 16:22 | PT.OTN ---
Current Diagnoses Unspecified abdominal hernia without obstruction or gangrene (07/24/21) Constipation, unspecified (07/24/21) Low back pain, unspecified (07/24/21) Separation of muscle (nontraumatic), other site (07/24/21) Stress incontinence (female) (male) (07/24/21) Physical Therapy Treatment Note PT-OP-A Visit Information Start: 06/19/21 16:55 Freq: Status: Active Protocol: Document 07/24/21 13:50 LRN (Rec: 07/24/21 16:18 LRN [id number]) Out-Patient Physical Therapy Visit Information Visit Information Visit Type Treatment Note Visit Start Time 13:50 Visit Stop Time 14:31 Total Visit Minutes 41 Visit Number 4 Evaluation Information Evaluation Date 06/26/21 Precautions Precautions Per pt report and intake form: Abdominal hernia. gall bladder removed in 03/2020. Has had a hx of miscarriage and currently spouse deployed, , ADHD, Depression & anxiety, oldest son is autistic. PT-OP-B Current Condition Start: 06/19/21 16:55 Freq: Status: Active Protocol: Document 06/26/21 13:07 LRN (Rec: 06/26/21 19:30 LRN [id number]) Current Condition History of Current Condition Onset Date 02/26/2021 of 3rd son Current Complaints abdominal pain, PF weakness, incontinence, constipation. History of Current Condition Diastasis Rectus (DR) since first son's 06/19/2015. Was not able to get medical care, complaining she could not get any doctors to take her seriously. At the end of 2016 (Mar 2018 had 2nd son) found out she had a DR and had PT in 2017 for ~6 weeks from an orthopedic therapist. Pt states PT was helpful but therapist wasn't familiar with DR. Pt states she has a DR from sternum to belly button. Currently pain radiates from abdomen to anterior chest and causes low back pain. She obtains pain relief by lying prone, drinking cold water (to relieve burning sensation) or by applying pressure in the abdomen. She notes her DR causes a little incontinence because pain sometimes makes her nauseous and when she vomits she has urinary leakage . Additionally, she reports that after her gall bladder was removed she had trouble with BM's and because of her abdominal wall, it is hard to push stool out. Pt has familial support in her sister , who is also stationed at the base in [place]. Sometimes her is deployed. She plans to consider surgery if pain continues. . Prior Treatments and Tests Wears spanx daily since 2017. 200#, 5'4 (BMI is 34.3; healthy weight is 18.5-34.9, > 30 = obese) Developmental History Developmental History Pt is 5, Parity 3. She reports her last son Cook was born 02/26/2021, who had a twin sister, who passed at 2 months in utero Treatment Goals Patient/Caregiver Goals Pt goal is to strengthen the abdominal muscles and PF. Pt goal is to see the abdominal bulge go away, and relieve abdominal pain. Pt goal is to know ex's appropriate for abdominal wall . Prior Functional Status Baseline Function- ADL's Independent Baseline Function- Mobility Independent Baseline Function- Other Exercises for a little in 2019 , cardio eliptical and yoga and sometimes the bike. Current Functional Impairments (Reported) Functional Limitations- ADL's When home from deployment her spouse helps 1x/week, spouse works nights. Functional Limitations- Other Not currently exercising. Personal Factors Other Personal Factors That May Effect Mom of 3 boys, ages 6, 3 and 4 Therapy/Recovery months. Loss of girl baby from recent at 2 month in utero. BMI is 34.3; healthy weight is 18.5-34.9, >30 = obese Spouse sometimes not available due to deployment, currently deployed. Autistic 16 yr old son, Paraguard IUD Currently ADHD, depression and anxiety. PT-OP-C Subjective Start: 06/19/21 16:55 Freq: Status: Active Protocol: Document 07/24/21 13:50 LRN (Rec: 07/24/21 16:18 LRN [id number]) OP-PT Subjective Patient Comments Patient Comments Noticed after last appt the abdomen was sore for a couple of days. Has been trying to do the ex's 2x/day. Ordered a brynn birch. PT-OP-I Pelvic Floor Start: 06/19/21 16:55 Freq: Status: Active Protocol: Document 06/26/21 13:07 LRN (Rec: 06/26/21 19:30 LRN [id number]) Pelvic Floor Assessment Urine Urinary Symptoms Dribbling After Urination Leakage Size Small Leakage Cause Cough,Exercise,Sneeze Voiding Frequency 5-7 times per day Nocturia 1 Pads Used In 24 Hours 1 Urine Pad Type Panty Liner Bowel Bowel Surgery No Bowel Symptoms Constipation Bowel Movement Frequency 2-4x/week Trigg Stool Chart Type 1-7 3 Trigg Stool Chart Comments Stools range from 1-4, averages 2-3. Pelvic Clock Pelvic Clock Other 6 O'Clock Tightness Pt has very small vaginal opening. 3-6 O'Clock pt reported strange sensation but denied pain. Perineal Descent Resting Absent Bearing Absent Contraction Ability Manual Muscle Testing Left 3 Manual Muscle Testing Right 2 Manual Muscle Testing Anterior 0 Manual Muscle Testing Posterior 3 Muscle Endurance (Seconds) 3 Number of Quick Contractions In 10 2 Seconds PT-OP-J Posture/Palpation/Skin Start: 06/19/21 16:55 Freq: Status: Active Protocol: Document 06/26/21 13:07 LRN (Rec: 06/26/21 19:30 LRN [id number]) Posture Evaluation Position Standing Head/C-Spine Posture Forward Head T-Spine Posture Flattened L-Spine Posture Decreased Lordosis Pelvis Posture Neutral Knee Posture (L) Genu Valgus,(R) Genu Valgus Comments Posture Comments Dowagers hump PT-OP-K Range of Motion Start: 06/19/21 16:55 Freq: Status: Active Protocol: Document 06/26/21 13:07 LRN (Rec: 06/26/21 19:30 LRN [id number]) Lumbar Spine Range of Motion Lumbar Spine Active Degrees Testing Position Standing Flexion 90 Extension 15 Rotation Left 25 Rotation Right 20 Lateral Flexion Left 20 Lateral Flexion Right 12 ROM Limitations Pain Comments Pain with ext and R SB, Hip Goniometric Range of Motion Hip Right Passive Testing Position Supine Internal Rotation 40 External Rotation 80 Left Passive Testing Position Supine Internal Rotation 45 External Rotation 80 PT-OP-M Strength Start: 06/19/21 16:55 Freq: Status: Active Protocol: Document 07/10/21 13:49 LRN (Rec: 07/10/21 14:54 LRN [id number]) Hip Strength Hip Manual Muscle Testing Right Abduction 5 Normal Adduction 5 Normal External Rotation 5 Normal Internal Rotation 5 Normal Left Abduction 5 Normal Adduction 4+ Good+ External Rotation 4 Good Internal Rotation 5 Normal PT-OP-Q Treatments Start: 06/19/21 16:55 Freq: Status: Active Protocol: Document 07/24/21 13:50 LRN (Rec: 07/24/21 16:18 LRN [id number]) Therapeutic Exercises Sitting Exercises Sit<>Supine/Breathwork Sitting Exercise Name Coordinated breathing with transfer & transfer training Reps/Minutes 4' Comments phys & v cuing for log roll transfer and coming to sit. Coughing Sitting Exercise Name Cough training Reps/Minutes 3' LE roll in/out/PF/TA Sitting Exercise Name LE roll in/out/PF/TA Equipment Used Lev 2 TBand, towel roll Reps/Minutes 5' Sit<>Stand Sitting Exercise Name TA/Breathing/pivoting @ hips for sit<>stand Reps/Minutes 3' Manual Therapy Treatment Taping DR Body Location Diastasis Rectus Treatment Focus Facilitating closure Type of Tape Kinesio Tape Skin Inspection Good Comments Pt noting improved awareness of needing TA tightening with tape. Self-Care/Home Management Treatment Education Patient Education Home Exercise Program,Safety Other Education Pt educated in proper removal of K-tape within 5 days and precaution of wearing. Discussed compressive wear for DR protrection. Recommended control top underwear, also discussed spanx and control top panty hose. Activities Self-Care/Home Management Activities Issued & reviewed HEP: LE roll in/outs with PF/TA tightening while in sitting with Lev 2 TBand issued (?pt forgot to take). I/S pt to practice proper pressure release of canister through coordinated breathing with transfers, lifting, coughing. PT-OP-T Assessment and Plan Start: 06/19/21 16:55 Freq: Status: Active Protocol: Document 07/24/21 13:50 LRN (Rec: 07/24/21 16:18 LRN [id number]) Physical Therapy Assessment Goals Five Impairment Constipation Impairment BM's 2-4 times a week with stool types 1-4, avg 2-3. Short Term Goal (STG) Pt will be educated in bowel program and bowel massage. STG Duration 07/03/21 (07/03/21: MET GOAL) Prison Goal (LTG) Pt will improve number of BM's per week with stool types 3-4 . LTG Duration 07/24/21 Four Impairment Pt not able to perform an isolated PF contraction Short Term Goal (STG) Pt will be able to perform a PF contraction in the absence of abdominal/gluteal muscles. STG Duration 07/24/21 Prison Goal (LTG) Pt will be able to maintain urinary continence in the presence of a cough or sneeze. LTG Duration 09/24/21 Three Impairment Low back and abdominal pain rated 6-8/10. Impairment Poor core stability with onset of LBP and abdominal pain rated 6-8/10. Short Term Goal (STG) Decrease LBP to no greater than 3/10. STG Duration 08/14/21 Prison Goal (LTG) Decrease abdominal pain on average to less than 6/10 ( initial eval pain rated 6-8/10 ) with occasional higher rated pain. LTG Duration 09/24/21 Two Impairment Decreased core stability and abdominal DR Impairment Pt not able to perform a TA resulting in bulging of the belly with abdominal tightening. DR: Above Umbilicus: 4-shallow & closed, 3-2.5 finger width & shallow, 2-3 finger widths w/pain, 1-4 finger widths w/ pain. Below Umbilicus: 3 - shallow , closed, 2 - 2.5 finger width, 1 - 3.5 finger width Short Term Goal (STG) Education in core/canister pressures and strategies to decrease PF pressures with coughing. Decrease in DR with reduction in abdominal bulge. (07/10/21: Pt educ in core/ canister pressure to decrease PF pressure) STG Duration 08/14/21 (07/10/21; Partially met goal; pt education complete) Prison Goal (LTG) Improve strengthen with pt able to perform a TA and stabilize the core with movement of the LE's and a decrease in abdominal pain. LTG Duration 09/24/21 One Impairment Pt lacks self care HEP. Short Term Goal (STG) Pt will be educated in ex's appropriate for abdominal wall at her current condition (TA & core stabilization ex's). (07/03/21: HEP: TA tightening in sup, side, sitting). STG Duration 07/23/21 (07/03/21: Progressed ). Prison Goal (LTG) Pt will be independent with HEP of core and pelvic floor stretches and isolated PF strengthening exercises. LTG Duration 09/24/21 Assessment Summary Assessment Treatment hindered by awake baby during treatment. Pt tries to focus on therapy and does well. She did not have a good recall of log roll transfer with proper breathing ; therefore review is appropriate. Good sit<>stand transfer. Physical Therapy Plan Frequency and Duration Frequency of Treatment 1x/Week Plan of Care Start Date 06/26/21 Plan of Care End Date 09/24/21 Next Visit Focus/Plan Next Note Type Treatment Note Next Visit Plan Review awareness of core/ cansiter pressure system and method for cough and log roll transfer. Start/educate pt on bowel program. Manual therapy to Low back, Progress Core stabilization of TA tightening. Assess hip ( flex/ext) and core strength, Review hip IR/R ER stretches ( sitting), Assess for pelvic asymmetry. Assess for SIJ balancing. Add Exer & HEP: Hip IR and low back (flex,SB, R rot), PF stretching and core strengthening. Educate pt on PF contractions in isolation of substitute muscles (gluteal>abdominal).
--- NOTE | 2021-07-31 15:14 | PT.OTN ---
Current Diagnoses Unspecified abdominal hernia without obstruction or gangrene (07/31/21) Constipation, unspecified (07/31/21) Low back pain, unspecified (07/31/21) Separation of muscle (nontraumatic), other site (07/31/21) Stress incontinence (female) (male) (07/31/21) Physical Therapy Treatment Note PT-OP-A Visit Information Start: 06/19/21 16:55 Freq: Status: Active Protocol: Document 07/31/21 13:59 LRN (Rec: 07/31/21 15:11 LRN [id number]) Out-Patient Physical Therapy Visit Information Visit Information Visit Type Treatment Note Visit Start Time 13:52 Visit Stop Time 14:31 Total Visit Minutes 39 Visit Number 5 Evaluation Information Evaluation Date 06/26/21 Precautions Precautions Per pt report and intake form: Abdominal hernia. gall bladder removed in 03/2020. Has had a hx of miscarriage and currently spouse deployed, , ADHD, Depression & anxiety, oldest son is autistic. PT-OP-B Current Condition Start: 06/19/21 16:55 Freq: Status: Active Protocol: Document 06/26/21 13:07 LRN (Rec: 06/26/21 19:30 LRN [id number]) Current Condition History of Current Condition Onset Date 02/26/2021 of 3rd son Current Complaints abdominal pain, PF weakness, incontinence, constipation. History of Current Condition Diastasis Rectus (DR) since first son's 06/19/2015. Was not able to get medical care, complaining she could not get any doctors to take her seriously. At the end of 2016 (Mar 2018 had 2nd son) found out she had a DR and had PT in 2017 for ~6 weeks from an orthopedic therapist. Pt states PT was helpful but therapist wasn't familiar with DR. Pt states she has a DR from sternum to belly button. Currently pain radiates from abdomen to anterior chest and causes low back pain. She obtains pain relief by lying prone, drinking cold water (to relieve burning sensation) or by applying pressure in the abdomen. She notes her DR causes a little incontinence because pain sometimes makes her nauseous and when she vomits she has urinary leakage . Additionally, she reports that after her gall bladder was removed she had trouble with BM's and because of her abdominal wall, it is hard to push stool out. Pt has familial support in her sister , who is also stationed at the base in [place]. Sometimes her is deployed. She plans to consider surgery if pain continues. . Prior Treatments and Tests Wears spanx daily since 2017. 200#, 5'4 (BMI is 34.3; healthy weight is 18.5-34.9, > 30 = obese) Developmental History Developmental History Pt is 5, Parity 3. She reports her last son Cook was born 02/26/2021, who had a twin sister, who passed at 2 months in utero Treatment Goals Patient/Caregiver Goals Pt goal is to strengthen the abdominal muscles and PF. Pt goal is to see the abdominal bulge go away, and relieve abdominal pain. Pt goal is to know ex's appropriate for abdominal wall . Prior Functional Status Baseline Function- ADL's Independent Baseline Function- Mobility Independent Baseline Function- Other Exercises for a little in 2019 , cardio eliptical and yoga and sometimes the bike. Current Functional Impairments (Reported) Functional Limitations- ADL's When home from deployment her spouse helps 1x/week, spouse works nights. Functional Limitations- Other Not currently exercising. Personal Factors Other Personal Factors That May Effect Mom of 3 boys, ages 6, 3 and 4 Therapy/Recovery months. Loss of girl baby from recent at 2 month in utero. BMI is 34.3; healthy weight is 18.5-34.9, >30 = obese Spouse sometimes not available due to deployment, currently deployed. Autistic 16 yr old son, Paraguard IUD Currently ADHD, depression and anxiety. PT-OP-C Subjective Start: 06/19/21 16:55 Freq: Status: Active Protocol: Document 07/31/21 13:59 LRN (Rec: 07/31/21 15:11 LRN [id number]) OP-PT Subjective Patient Comments Patient Comments Hasn't had abdominal pain that is felt up to throat for a month. Abdominal pain is much less. States the K-tape was helpful in reminding her to tighten TA, but would prefer not to use tape. Is having the first period after childbirth, so feeling bloated and therefore not able to tighten TA as well and is having more back pain. She has been doing TA ex's with daily activities because she falls asleep when doing sidelie ex's. She reports having BM's 3x/week, type 2,3 but this week has been type 4. PT-OP-I Pelvic Floor Start: 06/19/21 16:55 Freq: Status: Active Protocol: Document 06/26/21 13:07 LRN (Rec: 06/26/21 19:30 LRN [id number]) Pelvic Floor Assessment Urine Urinary Symptoms Dribbling After Urination Leakage Size Small Leakage Cause Cough,Exercise,Sneeze Voiding Frequency 5-7 times per day Nocturia 1 Pads Used In 24 Hours 1 Urine Pad Type Panty Liner Bowel Bowel Surgery No Bowel Symptoms Constipation Bowel Movement Frequency 2-4x/week Charles Stool Chart Type 1-7 3 Charles Stool Chart Comments Stools range from 1-4, averages 2-3. Pelvic Clock Pelvic Clock Other 6 O'Clock Tightness Pt has very small vaginal opening. 3-6 O'Clock pt reported strange sensation but denied pain. Perineal Descent Resting Absent Bearing Absent Contraction Ability Manual Muscle Testing Left 3 Manual Muscle Testing Right 2 Manual Muscle Testing Anterior 0 Manual Muscle Testing Posterior 3 Muscle Endurance (Seconds) 3 Number of Quick Contractions In 10 2 Seconds PT-OP-J Posture/Palpation/Skin Start: 06/19/21 16:55 Freq: Status: Active Protocol: Document 06/26/21 13:07 LRN (Rec: 06/26/21 19:30 LRN [id number]) Posture Evaluation Position Standing Head/C-Spine Posture Forward Head T-Spine Posture Flattened L-Spine Posture Decreased Lordosis Pelvis Posture Neutral Knee Posture (L) Genu Valgus,(R) Genu Valgus Comments Posture Comments Dowagers hump PT-OP-K Range of Motion Start: 06/19/21 16:55 Freq: Status: Active Protocol: Document 06/26/21 13:07 LRN (Rec: 06/26/21 19:30 LRN [id number]) Lumbar Spine Range of Motion Lumbar Spine Active Degrees Testing Position Standing Flexion 90 Extension 15 Rotation Left 25 Rotation Right 20 Lateral Flexion Left 20 Lateral Flexion Right 12 ROM Limitations Pain Comments Pain with ext and R SB, Hip Goniometric Range of Motion Hip Right Passive Testing Position Supine Internal Rotation 40 External Rotation 80 Left Passive Testing Position Supine Internal Rotation 45 External Rotation 80 PT-OP-M Strength Start: 06/19/21 16:55 Freq: Status: Active Protocol: Document 07/10/21 13:49 LRN (Rec: 03/18/22 14:54 LRN [id number]) Hip Strength Hip Manual Muscle Testing Right Abduction 5 Normal Adduction 5 Normal External Rotation 5 Normal Internal Rotation 5 Normal Left Abduction 5 Normal Adduction 4+ Good+ External Rotation 4 Good Internal Rotation 5 Normal PT-OP-Q Treatments Start: 06/19/21 16:55 Freq: Status: Active Protocol: Document 07/31/21 13:59 LRN (Rec: 07/31/21 15:11 LRN [id number]) Therapeutic Exercises Supine Exercises TA tightening Supine Exercise Name Isolated TA tightening and with head lift Reps/Minutes 3' Comments No doming with head lift. LE roll in/out/PF/TA Supine Exercise Name TA tightening/proper breathing Equipment Used bolster Reps/Minutes 6' (10 H x 6 each) Comments Phys & v cuing during ex to maintain neutral spine & hold during breathing Bowel massage Supine Exercise Name Reviewed why and when to do BM . Reps/Minutes 1' Comments verbal review with discussion. Sidelying Exercises TA tightening Sidelying Exercise Name TA tightening/proper breathing Side bilateral Reps/Minutes 8' (10 H x 7 each) Comments v cuing during ex to maintain neutral spine & hold during breathing Sitting Exercises Trunk strengthening Sitting Exercise Name TA/trunk ext core stab, moving baby close & away from body. Reps/Minutes 6' Salvatore hip IR stretch Sitting Exercise Name Hip IR stretch Side bilateral Reps/Minutes 6' R hip ER stretch Sitting Exercise Name R ankle over L knee Side right Reps/Minutes 2' Trunk rot Sitting Exercise Name Semi-reclined while holding baby Side bilateral Reps/Minutes 6' Comments v cuing for keeping range w/o back pain & phys cuing to keep DR closed and PT-OP-T Assessment and Plan Start: 06/19/21 16:55 Freq: Status: Active Protocol: Document 07/31/21 13:59 LRN (Rec: 07/31/21 15:11 LRN [id number]) Physical Therapy Assessment Goals Five Impairment Constipation Impairment BM's 2-4 times a week with stool types 1-4, avg 2-3. Short Term Goal (STG) Pt will be educated in bowel program and bowel massage. STG Duration 07/03/21 (07/03/21: MET GOAL) Therapist Radiation Goal (LTG) Pt will improve number of BM's per week with stool types 3-4 . (07/31/21: BM's 3x/week, usually type 2-3, this week type 4). LTG Duration 07/24/21 (07/31/21: Progressing) Four Impairment Pt not able to perform an isolated PF contraction Short Term Goal (STG) Pt will be able to perform a PF contraction in the absence of abdominal/gluteal muscles. (07/31/21: Minimal tightening of abdomen and hip AD). STG Duration 07/24/21 (07/31/21: MET GOAL) Usp Goal (LTG) Pt will be able to maintain urinary continence in the presence of a cough or sneeze. LTG Duration 09/24/21 Three Impairment Low back and abdominal pain rated 6-8/10. Impairment Poor core stability with onset of LBP and abdominal pain rated 6-8/10. Short Term Goal (STG) Decrease LBP to no greater than 3/10. STG Duration 08/14/21 Therapist Radiation Goal (LTG) Decrease abdominal pain on average to less than 6/10 ( initial eval pain rated 6-8/10 ) with occasional higher rated pain. LTG Duration 09/24/21 Two Impairment Decreased core stability and abdominal DR Impairment Pt not able to perform a TA resulting in bulging of the belly with abdominal tightening. DR: Above Umbilicus: 4-shallow & closed, 3-2.5 finger width & shallow, 2-3 finger widths w/pain, 1-4 finger widths w/ pain. Below Umbilicus: 3 - shallow , closed, 2 - 2.5 finger width, 1 - 3.5 finger width Short Term Goal (STG) Education in core/canister pressures and strategies to decrease PF pressures with coughing. Decrease in DR with reduction in abdominal bulge. (07/10/21: Pt educ in core/ canister pressure to decrease PF pressure) (07/31/21: DR not assessed, but no doming with head lift). STG Duration 08/14/21 (07/31/21; Partially met goal; pt education & decr doming complete) Therapist Radiation Goal (LTG) Improve strengthen with pt able to perform a TA and stabilize the core with movement of the LE's and a decrease in abdominal pain. LTG Duration 09/24/21 One Impairment Pt lacks self care HEP. Short Term Goal (STG) Pt will be educated in ex's appropriate for abdominal wall at her current condition (TA & core stabilization ex's). (07/03/21: HEP: TA tightening in sup, side, sitting). (07/31/21: Initiated active upper trunk rot holding baby). STG Duration 07/23/21 (07/31/21: Progressed) . Therapist Radiation Goal (LTG) Pt will be independent with HEP of core and pelvic floor stretches and isolated PF strengthening exercises. (07/31/21: Pt doing TA, isolated PF, and sitting trunk rot ex). LTG Duration 09/24/21 (07/31/21: Progressing) Progress Towards Goals Progress Comments Improved strength of core with no doming of abdomen on head lift. Progressed HEP with semi- reclined trunk rot. Educated pt in proper sit<>sup transfer. Assessment Summary Assessment Pt doing BM massage when needed and has increased BM's from 2-5 to 3x/week, this week BM is type 4, but typical type 2-3. Core abdominal strength: L TA is weaker than R. The pt is able to perform a PF contraction with minimal substitution from TA and hip AD's. Physical Therapy Plan Frequency and Duration Frequency of Treatment 1x/Week Plan of Care Start Date 06/26/21 Plan of Care End Date 09/24/21 Next Visit Focus/Plan Next Note Type Treatment Note Next Visit Plan Review awareness of core/ cansiter pressure system and method for cough. Manual therapy to Low back, Assess for pelvic asymmetry. Assess for SIJ balancing. Add Exer & HEP: Hip IR and low back (flex,SB, R rot), PF stretching and core strengthening. Progress Core stabilization of TA tightening. Assess hip ( flex/ext) and core strength.
--- NOTE | 2021-08-21 15:04 | PT.OTN ---
Current Diagnoses Unspecified abdominal hernia without obstruction or gangrene (08/21/21) Constipation, unspecified (08/21/21) Low back pain, unspecified (08/21/21) Separation of muscle (nontraumatic), other site (08/21/21) Stress incontinence (female) (male) (08/21/21) Physical Therapy Treatment Note PT-OP-A Visit Information Start: 06/19/21 16:55 Freq: Status: Active Protocol: Document 08/21/21 13:50 LRN (Rec: 08/21/21 15:03 LRN [id number]) Out-Patient Physical Therapy Visit Information Visit Information Visit Type Treatment Note Visit Start Time 13:50 Visit Stop Time 14:30 Total Visit Minutes 40 Visit Number 6 Evaluation Information Evaluation Date 06/26/21 Precautions Precautions Per pt report and intake form: Abdominal hernia. gall bladder removed in 03/2020. Has had a hx of miscarriage and currently spouse deployed, , ADHD, Depression & anxiety, oldest son is autistic. PT-OP-B Current Condition Start: 06/19/21 16:55 Freq: Status: Active Protocol: Document 06/26/21 13:07 LRN (Rec: 06/26/21 19:30 LRN [id number]) Current Condition History of Current Condition Onset Date 02/26/2021 of 3rd son Current Complaints abdominal pain, PF weakness, incontinence, constipation. History of Current Condition Diastasis Rectus (DR) since first son's 06/19/2015. Was not able to get medical care, complaining she could not get any doctors to take her seriously. At the end of 2016 (Mar 2018 had 2nd son) found out she had a DR and had PT in 2017 for ~6 weeks from an orthopedic therapist. Pt states PT was helpful but therapist wasn't familiar with DR. Pt states she has a DR from sternum to belly button. Currently pain radiates from abdomen to anterior chest and causes low back pain. She obtains pain relief by lying prone, drinking cold water (to relieve burning sensation) or by applying pressure in the abdomen. She notes her DR causes a little incontinence because pain sometimes makes her nauseous and when she vomits she has urinary leakage . Additionally, she reports that after her gall bladder was removed she had trouble with BM's and because of her abdominal wall, it is hard to push stool out. Pt has familial support in her sister , who is also stationed at the base in [place]. Sometimes her is deployed. She plans to consider surgery if pain continues. . Prior Treatments and Tests Wears spanx daily since 2017. 200#, 5'4 (BMI is 34.3; healthy weight is 18.5-34.9, > 30 = obese) Developmental History Developmental History Pt is 5, Parity 3. She reports her last son Cook was born 02/26/2021, who had a twin sister, who passed at 2 months in utero Treatment Goals Patient/Caregiver Goals Pt goal is to strengthen the abdominal muscles and PF. Pt goal is to see the abdominal bulge go away, and relieve abdominal pain. Pt goal is to know ex's appropriate for abdominal wall . Prior Functional Status Baseline Function- ADL's Independent Baseline Function- Mobility Independent Baseline Function- Other Exercises for a little in 2019 , cardio eliptical and yoga and sometimes the bike. Current Functional Impairments (Reported) Functional Limitations- ADL's When home from deployment her spouse helps 1x/week, spouse works nights. Functional Limitations- Other Not currently exercising. Personal Factors Other Personal Factors That May Effect Mom of 3 boys, ages 6, 3 and 4 Therapy/Recovery months. Loss of girl baby from recent at 2 month in utero. BMI is 34.3; healthy weight is 18.5-34.9, >30 = obese Spouse sometimes not available due to deployment, currently deployed. Autistic 16 yr old son, Paraguard IUD Currently ADHD, depression and anxiety. PT-OP-C Subjective Start: 06/19/21 16:55 Freq: Status: Active Protocol: Document 08/21/21 13:50 LRN (Rec: 08/21/21 15:03 LRN [id number]) OP-PT Subjective Patient Comments Patient Comments States not much has changed. Low back has been better. What has been bother her has been her L shoulder blade. Looking for a chiroprator. BM 'a are between 2-4. Has varicose veins in hips has been hurting her. PT-OP-I Pelvic Floor Start: 06/19/21 16:55 Freq: Status: Active Protocol: Document 06/26/21 13:07 LRN (Rec: 06/26/21 19:30 LRN [id number]) Pelvic Floor Assessment Urine Urinary Symptoms Dribbling After Urination Leakage Size Small Leakage Cause Cough,Exercise,Sneeze Voiding Frequency 5-7 times per day Nocturia 1 Pads Used In 24 Hours 1 Urine Pad Type Panty Liner Bowel Bowel Surgery No Bowel Symptoms Constipation Bowel Movement Frequency 2-4x/week [place] Stool Chart Type 1-7 3 [place] Stool Chart Comments Stools range from 1-4, averages 2-3. Pelvic Clock Pelvic Clock Other 6 O'Clock Tightness Pt has very small vaginal opening. 3-6 O'Clock pt reported strange sensation but denied pain. Perineal Descent Resting Absent Bearing Absent Contraction Ability Manual Muscle Testing Left 3 Manual Muscle Testing Right 2 Manual Muscle Testing Anterior 0 Manual Muscle Testing Posterior 3 Muscle Endurance (Seconds) 3 Number of Quick Contractions In 10 2 Seconds PT-OP-J Posture/Palpation/Skin Start: 06/19/21 16:55 Freq: Status: Active Protocol: Document 06/26/21 13:07 LRN (Rec: 06/26/21 19:30 LRN [id number]) Posture Evaluation Position Standing Head/C-Spine Posture Forward Head T-Spine Posture Flattened L-Spine Posture Decreased Lordosis Pelvis Posture Neutral Knee Posture (L) Genu Valgus,(R) Genu Valgus Comments Posture Comments Dowagers hump PT-OP-K Range of Motion Start: 06/19/21 16:55 Freq: Status: Active Protocol: Document 06/26/21 13:07 LRN (Rec: 06/26/21 19:30 LRN [id number]) Lumbar Spine Range of Motion Lumbar Spine Active Degrees Testing Position Standing Flexion 90 Extension 15 Rotation Left 25 Rotation Right 20 Lateral Flexion Left 20 Lateral Flexion Right 12 ROM Limitations Pain Comments Pain with ext and R SB, Hip Goniometric Range of Motion Hip Right Passive Testing Position Supine Internal Rotation 40 External Rotation 80 Left Passive Testing Position Supine Internal Rotation 45 External Rotation 80 PT-OP-M Strength Start: 06/19/21 16:55 Freq: Status: Active Protocol: Document 07/10/21 13:49 LRN (Rec: 07/10/21 14:54 LRN [id number]) Hip Strength Hip Manual Muscle Testing Right Abduction 5 Normal Adduction 5 Normal External Rotation 5 Normal Internal Rotation 5 Normal Left Abduction 5 Normal Adduction 4+ Good+ External Rotation 4 Good Internal Rotation 5 Normal PT-OP-Q Treatments Start: 06/19/21 16:55 Freq: Status: Active Protocol: Document 08/21/21 13:50 LRN (Rec: 08/21/21 15:03 LRN [id number]) Therapeutic Exercises Supine Exercises Manual C. tx Supine Exercise Name C. tx for mid back pain relief Reps/Minutes 2' Comments Minimal change with midback pain. Iliopsoas stretch Supine Exercise Name Iliopsoas stretch Side bilateral Reps/Minutes 4' Comments Extra time to determine max stretch position Core rot Supine Exercise Name External rotators - Hands/ knees push with legs on TBall Side bilateral Equipment Used Red TBall Reps/Minutes 15' Hip IR stretch Supine Exercise Name Piriformis stretch Side bilateral Reps/Minutes 4' Comments Extra time taken to find best position for stretch without abodminal pain TA tightening Supine Exercise Name TA tightening during breathing and without having to exhale to draw in. Reps/Minutes 10x 2 Sidelying Exercises TA tightening Sidelying Exercise Name TA tightening/proper breathing Side bilateral Reps/Minutes 8' (10 H x 7 each) Comments v cuing during ex to maintain neutral spine & hold during breathing Therapeutic Activity Therapeutic Activity Transfer training for DR protection Name Assessing sit>supine>sit transfers Reps/Minutes 2' Comments Pt demonstrated good body mechanics with both transfers. Self-Care/Home Management Treatment Education Patient Education Home Exercise Program Activities Self-Care/Home Management Activities Issued & reviewed HEP: Piriformis stretch in supine ( knee to opposite shoulder starting with knee crossed over opposite knee), and Iliopsoas stretch. PT-OP-T Assessment and Plan Start: 06/19/21 16:55 Freq: Status: Active Protocol: Document 08/21/21 13:50 LRN (Rec: 08/21/21 15:03 LRN [id number]) Physical Therapy Assessment Goals Five Impairment Constipation Impairment BM's 2-4 times a week with stool types 1-4, avg 2-3. Short Term Goal (STG) Pt will be educated in bowel program and bowel massage. STG Duration 07/03/21 (07/03/21: MET GOAL) Boxcar Weigher Goal (LTG) Pt will improve number of BM's per week with stool types 3-4 . (07/31/21: BM's 3x/week, usually type 2-3, this week type 4). (08/21/21: BM types are 2-4). LTG Duration 07/24/21 (07/31/21: Progressing) Four Impairment Pt not able to perform an isolated PF contraction Short Term Goal (STG) Pt will be able to perform a PF contraction in the absence of abdominal/gluteal muscles. (07/31/21: Minimal tightening of abdomen and hip AD). STG Duration 07/24/21 (07/31/21: MET GOAL) Snf Goal (LTG) Pt will be able to maintain urinary continence in the presence of a cough or sneeze. LTG Duration 09/24/21 Three Impairment Low back and abdominal pain rated 6-8/10. Impairment Poor core stability with onset of LBP and abdominal pain rated 6-8/10. Short Term Goal (STG) Decrease LBP to no greater than 3/10. (08/21/21: LBP rated 4-6/10, currently 2/10). STG Duration 08/14/21 (08/21/21: First time in today pain is 2/10). Snf Goal (LTG) Decrease abdominal pain on average to less than 6/10 ( initial eval pain rated 6-8/10 ) with occasional higher rated pain. (08/21/21: No shooting pain, abdominal pain has been better , rated 4/10). LTG Duration 09/24/21 (08/21/21: MET GOAL) Two Impairment Decreased core stability and abdominal DR Impairment Pt not able to perform a TA resulting in bulging of the belly with abdominal tightening. DR: Above Umbilicus: 4-shallow & closed, 3-2.5 finger width & shallow, 2-3 finger widths w/pain, 1-4 finger widths w/ pain. Below Umbilicus: 3 - shallow , closed, 2 - 2.5 finger width, 1 - 3.5 finger width Short Term Goal (STG) Education in core/canister pressures and strategies to decrease PF pressures with coughing. Decrease in DR with reduction in abdominal bulge. (07/10/21: Pt educ in core/ canister pressure to decrease PF pressure) (07/31/21: DR not assessed, but no doming with head lift). (08/21/21: No doming w/TA tight and head lift) STG Duration 08/14/21 (07/31/21; Partially met goal; pt education & decr doming complete) Boxcar Weigher Goal (LTG) Improve strengthen with pt able to perform a TA and stabilize the core with movement of the LE's and a decrease in abdominal pain. (08/21/21: Abdominal pain has decreased to 4/10 from 6-8/10) LTG Duration 09/24/21 (08/21/21: Improved, abd pn decreased) One Impairment Pt lacks self care HEP. Short Term Goal (STG) Pt will be educated in ex's appropriate for abdominal wall at her current condition (TA & core stabilization ex's). (07/03/21: HEP: TA tightening in sup, side, sitting). (07/31/21: Initiated active upper trunk rot holding baby). STG Duration 07/23/21 (07/31/21: Progressed) . Boxcar Weigher Goal (LTG) Pt will be independent with HEP of core and pelvic floor stretches and isolated PF strengthening exercises. (07/31/21: Pt doing TA, isolated PF, and sitting trunk rot ex). (08/21/21: HEP: Hip IR stretch, hands/knees push for rotation). LTG Duration 09/24/21 (08/21/21: Progressing) Assessment Summary Assessment Pt R abdomen is weaker the the L with bulging initially at start of Rotation strengthening. Pt was able to correct, but noticed less drawing in on the R than the L abdomen. Pt able to tighten and hold TA through shallow breathing. She was able to tighten TA without having to exhale 30% of the time. Good body mechanics with transfers sit<>supine. Physical Therapy Plan Frequency and Duration Frequency of Treatment 1x/Week Plan of Care Start Date 06/26/21 Plan of Care End Date 09/24/21 Next Visit Focus/Plan Next Note Type Treatment Note Next Visit Plan Review awareness of core/ cansiter pressure system and method for cough. Review HEP issued. Assess (STG #2) Assess for pelvic asymmetry & for SIJ balancing. Manual therapy to pelvis & Low back, Add Exer & HEP: Low back ( flex,SB, R rot), PF stretching and core strengthening. Progress Core stabilization of TA tightening. Assess hip ( flex/ext) and core strength.
--- NOTE | 2021-08-28 16:44 | PT.OTN ---
Current Diagnoses Unspecified abdominal hernia without obstruction or gangrene (08/28/21) Constipation, unspecified (08/28/21) Low back pain, unspecified (08/28/21) Separation of muscle (nontraumatic), other site (08/28/21) Stress incontinence (female) (male) (08/28/21) Physical Therapy Treatment Note PT-OP-A Visit Information Start: 06/19/21 16:55 Freq: Status: Active Protocol: Document 08/28/21 13:21 LRN (Rec: 08/28/21 16:42 LRN [id number]) Out-Patient Physical Therapy Visit Information Visit Information Visit Type Progress Note Visit Start Time 13:45 Visit Stop Time 14:35 Total Visit Minutes 50 Visit Number 7 Evaluation Information Evaluation Date 06/26/21 Precautions Precautions Per pt report and intake form: Abdominal hernia. gall bladder removed in 03/2020. Has had a hx of miscarriage and currently spouse deployed, , ADHD, Depression & anxiety, oldest son is autistic. PT-OP-B Current Condition Start: 06/19/21 16:55 Freq: Status: Active Protocol: Document 06/26/21 13:07 LRN (Rec: 06/26/21 19:30 LRN [id number]) Current Condition History of Current Condition Onset Date 02/26/2021 of 3rd son Current Complaints abdominal pain, PF weakness, incontinence, constipation. History of Current Condition Diastasis Rectus (DR) since first son's 06/19/2015. Was not able to get medical care, complaining she could not get any doctors to take her seriously. At the end of 2016 (Mar 2018 had 2nd son) found out she had a DR and had PT in 2017 for ~6 weeks from an orthopedic therapist. Pt states PT was helpful but therapist wasn't familiar with DR. Pt states she has a DR from sternum to belly button. Currently pain radiates from abdomen to anterior chest and causes low back pain. She obtains pain relief by lying prone, drinking cold water (to relieve burning sensation) or by applying pressure in the abdomen. She notes her DR causes a little incontinence because pain sometimes makes her nauseous and when she vomits she has urinary leakage . Additionally, she reports that after her gall bladder was removed she had trouble with BM's and because of her abdominal wall, it is hard to push stool out. Pt has familial support in her sister , who is also stationed at the base in [place]. Sometimes her is deployed. She plans to consider surgery if pain continues. . Prior Treatments and Tests Wears spanx daily since 2017. 200#, 5'4 (BMI is 34.3; healthy weight is 18.5-34.9, > 30 = obese) Developmental History Developmental History Pt is 4, Parity 3. She reports her last son Cook was born 02/26/2021, who had a twin sister, who passed at 2 months in utero Treatment Goals Patient/Caregiver Goals Pt goal is to strengthen the abdominal muscles and PF. Pt goal is to see the abdominal bulge go away, and relieve abdominal pain. Pt goal is to know ex's appropriate for abdominal wall . Prior Functional Status Baseline Function- ADL's Independent Baseline Function- Mobility Independent Baseline Function- Other Exercises for a little in 2019 , cardio eliptical and yoga and sometimes the bike. Current Functional Impairments (Reported) Functional Limitations- ADL's When home from deployment her spouse helps 1x/week, spouse works nights. Functional Limitations- Other Not currently exercising. Personal Factors Other Personal Factors That May Effect Mom of 3 boys, ages 6, 3 and 4 Therapy/Recovery months. Loss of girl baby from recent at 2 month in utero. BMI is 34.3; healthy weight is 18.5-34.9, >30 = obese Spouse sometimes not available due to deployment, currently deployed. Autistic 16 yr old son, Paraguard IUD Currently ADHD, depression and anxiety. PT-OP-C Subjective Start: 06/19/21 16:55 Freq: Status: Active Protocol: Document 08/28/21 13:21 LRN (Rec: 08/28/21 16:42 LRN [id number]) OP-PT Subjective Patient Comments Patient Comments Back is painful, rated 6-7/10. Has an OMT appointment next week. After therapy pt reports pain is 4-6/10 and abdominal pain is 2-4/10. PT-OP-I Pelvic Floor Start: 06/19/21 16:55 Freq: Status: Active Protocol: Document 06/26/21 13:07 LRN (Rec: 06/26/21 19:30 LRN [id number]) Pelvic Floor Assessment Urine Urinary Symptoms Dribbling After Urination Leakage Size Small Leakage Cause Cough,Exercise,Sneeze Voiding Frequency 5-7 times per day Nocturia 1 Pads Used In 24 Hours 1 Urine Pad Type Panty Liner Bowel Bowel Surgery No Bowel Symptoms Constipation Bowel Movement Frequency 2-4x/week [place] Stool Chart Type 1-7 3 [place] Stool Chart Comments Stools range from 1-4, averages 2-3. Pelvic Clock Pelvic Clock Other 6 O'Clock Tightness Pt has very small vaginal opening. 3-6 O'Clock pt reported strange sensation but denied pain. Perineal Descent Resting Absent Bearing Absent Contraction Ability Manual Muscle Testing Left 3 Manual Muscle Testing Right 2 Manual Muscle Testing Anterior 0 Manual Muscle Testing Posterior 3 Muscle Endurance (Seconds) 3 Number of Quick Contractions In 10 2 Seconds PT-OP-J Posture/Palpation/Skin Start: 06/19/21 16:55 Freq: Status: Active Protocol: Document 06/26/21 13:07 LRN (Rec: 06/26/21 19:30 LRN [id number]) Posture Evaluation Position Standing Head/C-Spine Posture Forward Head T-Spine Posture Flattened L-Spine Posture Decreased Lordosis Pelvis Posture Neutral Knee Posture (L) Genu Valgus,(R) Genu Valgus Comments Posture Comments Dowagers hump PT-OP-K Range of Motion Start: 06/19/21 16:55 Freq: Status: Active Protocol: Document 06/26/21 13:07 LRN (Rec: 06/26/21 19:30 LRN [id number]) Lumbar Spine Range of Motion Lumbar Spine Active Degrees Testing Position Standing Flexion 90 Extension 15 Rotation Left 25 Rotation Right 20 Lateral Flexion Left 20 Lateral Flexion Right 12 ROM Limitations Pain Comments Pain with ext and R SB, Hip Goniometric Range of Motion Hip Right Passive Testing Position Supine Internal Rotation 40 External Rotation 80 Left Passive Testing Position Supine Internal Rotation 45 External Rotation 80 PT-OP-M Strength Start: 06/19/21 16:55 Freq: Status: Active Protocol: Document 07/10/21 13:49 LRN (Rec: 07/10/21 14:54 LRN [id number]) Hip Strength Hip Manual Muscle Testing Right Abduction 5 Normal Adduction 5 Normal External Rotation 5 Normal Internal Rotation 5 Normal Left Abduction 5 Normal Adduction 4+ Good+ External Rotation 4 Good Internal Rotation 5 Normal PT-OP-Q Treatments Start: 06/19/21 16:55 Freq: Status: Active Protocol: Document 08/28/21 13:21 LRN (Rec: 08/28/21 16:42 LRN [id number]) Therapeutic Exercises Supine Exercises Self manual trunk rotator stretch Supine Exercise Name Self manual stretch to trunk rotators. Side bilateral Reps/Minutes 4' Prone Exercises TA tightening Prone Exercise Name TA tightening and training for awareness of doming Reps/Minutes 15' Comments cuing and use of mirror for pt to see doming with LE mvmt, L >R. Manual Therapy Treatment Soft Tissue Mobilization Lumbar paraspinals Body Location Lumbar paraspinals, R>L Mobilization Type Strumming Intensity/Depth Moderate Body Position Prone Balancing of sacrum Body Location Ileum, Sacrum, Ischial tuberosity Mobilization Type Myofascial Release,Sustained Pressure Intensity/Depth Moderate Body Position Sitting Comments Inferior glide R superior sacrum Sheer of R sacrum to the L PA of R sacral sulcus PA of R NELIDA PA of Ischial Tuberosity, 6 point Sacral balancing Trunk rot Body Location Trunk rotators Mobilization Type Myofascial Release Intensity/Depth Moderate Body Position Hooklying Comments Increase in back pain when lying on back. PT-OP-T Assessment and Plan Start: 06/19/21 16:55 Freq: Status: Active Protocol: Document 08/28/21 13:21 LRN (Rec: 08/28/21 16:42 [facility] [id number]) Physical Therapy Assessment Goals Five Impairment Constipation Impairment BM's 2-4 times a week with stool types 1-4, avg 2-3. Short Term Goal (STG) Pt will be educated in bowel program and bowel massage. STG Duration 07/03/21 (07/03/21: MET GOAL) Halfway Goal (LTG) Pt will improve number of BM's per week with stool types 3-4 . (07/31/21: BM's 3x/week, usually type 2-3, this week type 4). (08/21/21: BM types are 2-4). (08/28/21: BM's almost daily and types 3-4). LTG Duration 07/24/21 (07/29/21: MET GOAL) Four Impairment Pt not able to perform an isolated PF contraction Short Term Goal (STG) Pt will be able to perform a PF contraction in the absence of abdominal/gluteal muscles. (07/31/21: Minimal tightening of abdomen and hip AD). STG Duration 07/24/21 (07/31/21: MET GOAL) Halfway Goal (LTG) Pt will be able to maintain urinary continence in the presence of a cough or sneeze. LTG Duration 09/24/21 Three Impairment Low back and abdominal pain rated 6-8/10. Impairment Poor core stability with onset of LBP and abdominal pain rated 6-8/10. Short Term Goal (STG) Decrease LBP to no greater than 3/10. (08/21/21: LBP rated 4-6/10, currently 2/10). (08/28/21: LBP in evenings 6-7/ 10, but after therapy 4-6/10). STG Duration 08/14/21 (08/28/21: Improving, after therapy LBP rated 4-6/10 ). Halfway Goal (LTG) Decrease abdominal pain on average to less than 6/10 ( initial eval pain rated 6-8/10 ) with occasional higher rated pain. (08/21/21: No shooting pain, abdominal pain has been better , rated 4/10). LTG Duration 09/24/21 (08/21/21: MET GOAL) Two Impairment Decreased core stability and abdominal DR Impairment Pt not able to perform a TA resulting in bulging of the belly with abdominal tightening. DR: Above Umbilicus: 4-shallow & closed, 3-2.5 finger width & shallow, 2-3 finger widths w/pain, 1-4 finger widths w/ pain. Below Umbilicus: 3 - shallow , closed, 2 - 2.5 finger width, 1 - 3.5 finger width Short Term Goal (STG) Education in core/canister pressures and strategies to decrease PF pressures with coughing. Decrease in DR with reduction in abdominal bulge. (07/10/21: Pt educ in core/ canister pressure to decrease PF pressure) (07/31/21: DR not assessed, but no doming with head lift). (08/21/21: No doming w/TA tight and head lift) STG Duration 08/14/21 (07/31/21; Partially met goal; pt education & decr doming complete) Halfway Goal (LTG) Improve strengthen with pt able to perform a TA and stabilize the core with movement of the LE's and a decrease in abdominal pain. (08/21/21: Abdominal pain has decreased to 4/10 from 6-8/10) LTG Duration 09/24/21 (08/21/21: Improved, abd pn decreased) One Impairment Pt lacks self care HEP. Short Term Goal (STG) Pt will be educated in ex's appropriate for abdominal wall at her current condition (TA & core stabilization ex's). (07/03/21: HEP: TA tightening in sup, side, sitting). (07/31/21: Initiated active upper trunk rot holding baby). STG Duration 07/23/21 (07/31/21: Progressed) . Halfway Goal (LTG) Pt will be independent with HEP of core and pelvic floor stretches and isolated PF strengthening exercises. (07/31/21: Pt doing TA, isolated PF, and sitting trunk rot ex). (08/21/21: HEP: Hip IR stretch, hands/knees push for rotation). LTG Duration 09/24/21 (08/21/21: Progressing) Assessment Summary Assessment Therapy has been focused on improving PF strength and core stability/strength to protect worsening of her diastasis rectus. She has improved in her body mechanics but needs occasional reminders of proper transfers sit<>supine to protect her DR. Her LBP has hindered her progress in improving her hip and lumbar mobility as well as her PF strength. She has improved her BM frequency and stool types for lessening of stress on her bladder. Pt sacrum is extremely flexed and tender with palpation; therefore there is soft tissue dysfunction in the pelvic region that would benefit from further skilled physical therapy. Manual therapy to fully balance her pelvic region is limited due to tightness on her R side (of sacrum and ischeum). The loss of her twin daughter may also be prolonging her rehabilitation process. The pt would benefit from continued physical therapy to continue working towards achieving the above stated goals. Physical Therapy Plan Frequency and Duration Frequency of Treatment 1x/Week Plan of Care Start Date 06/26/21 Plan of Care End Date 12/26/21 Next Visit Focus/Plan Next Note Type Treatment Note Next Visit Plan Review awareness of core/ cansiter pressure system and method for cough. Review HEP issued (Piriformis stretch in supine (knee to opposite shoulder starting with knee crossed over opposite knee), and Iliopsoas stretch). Assess (STG #2) Manual therapy for Low back tightness (R>L), Pelvic asymmetry & for SIJ balancing, Progress Core stabilization of TA tightening. Assess core strength. Add Exer & HEP: Low back ( flex,SB, R rot), PF stretching and core strengthening.
--- NOTE | 2021-08-28 16:44 | PT.OPPOC ---
Physical, Occupational & Speech Therapy At [facility] Current Diagnoses Unspecified abdominal hernia without obstruction or gangrene (08/28/21) Constipation, unspecified (08/28/21) Low back pain, unspecified (08/28/21) Separation of muscle (nontraumatic), other site (08/28/21) Stress incontinence (female) (male) (08/28/21) Visit Care Team Role Provider Type Lauren Steve MD Family Provider Physician Specialty: Gynecology [employer] Obstetrics Address: [address] [place] [address], [id number] Email: [email or web address] Yudelka Lee MD Attending Provider Non-Staff Primary Care Provider Referring Provider Specialty: Medical Address: [address] [place] [address], Formerly [facility] Email: Plan Of Care PT-OP-T Assessment and Plan Start: 06/19/21 16:55 Freq: Status: Active Protocol: Document 08/28/21 13:21 LRN (Rec: 08/28/21 16:42 LRN [id number]) Physical Therapy Assessment Goals Five Impairment Constipation Impairment BM's 2-4 times a week with stool types 1-4, avg 2-3. Short Term Goal (STG) Pt will be educated in bowel program and bowel massage. STG Duration 07/03/21 (07/03/21: MET GOAL) Fpc Goal (LTG) Pt will improve number of BM's per week with stool types 3-4 . (07/31/21: BM's 3x/week, usually type 2-3, this week type 4). (08/21/21: BM types are 2-4). (08/28/21: BM's almost daily and types 3-4). LTG Duration 07/24/21 (07/29/21: MET GOAL) Four Impairment Pt not able to perform an isolated PF contraction Short Term Goal (STG) Pt will be able to perform a PF contraction in the absence of abdominal/gluteal muscles. (07/31/21: Minimal tightening of abdomen and hip AD). STG Duration 07/24/21 (07/31/21: MET GOAL) Exhibit Designer Goal (LTG) Pt will be able to maintain urinary continence in the presence of a cough or sneeze. LTG Duration 09/24/21 Three Impairment Low back and abdominal pain rated 6-8/10. Impairment Poor core stability with onset of LBP and abdominal pain rated 6-8/10. Short Term Goal (STG) Decrease LBP to no greater than 3/10. (08/21/21: LBP rated 4-6/10, currently 2/10). (08/28/21: LBP in evenings 6-7/ 10, but after therapy 4-6/10). STG Duration 08/14/21 (08/28/21: Improving, after therapy LBP rated 4-6/10 ). Exhibit Designer Goal (LTG) Decrease abdominal pain on average to less than 6/10 ( initial eval pain rated 6-8/10 ) with occasional higher rated pain. (08/21/21: No shooting pain, abdominal pain has been better , rated 4/10). LTG Duration 09/24/21 (08/21/21: MET GOAL) Two Impairment Decreased core stability and abdominal DR Impairment Pt not able to perform a TA resulting in bulging of the belly with abdominal tightening. DR: Above Umbilicus: 4-shallow & closed, 3-2.5 finger width & shallow, 2-3 finger widths w/pain, 1-4 finger widths w/ pain. Below Umbilicus: 3 - shallow , closed, 2 - 2.5 finger width, 1 - 3.5 finger width Short Term Goal (STG) Education in core/canister pressures and strategies to decrease PF pressures with coughing. Decrease in DR with reduction in abdominal bulge. (07/10/21: Pt educ in core/ canister pressure to decrease PF pressure) (07/31/21: DR not assessed, but no doming with head lift). (08/21/21: No doming w/TA tight and head lift) STG Duration 08/14/21 (07/31/21; Partially met goal; pt education & decr doming complete) Fpc Goal (LTG) Improve strengthen with pt able to perform a TA and stabilize the core with movement of the LE's and a decrease in abdominal pain. (08/21/21: Abdominal pain has decreased to 4/10 from 6-8) LTG Duration 09/24/21 (08/21/21: Improved, abd pn decreased) One Impairment Pt lacks self care HEP. Short Term Goal (STG) Pt will be educated in ex's appropriate for abdominal wall at her current condition (TA & core stabilization ex's). (07/03/21: HEP: TA tightening in sup, side, sitting). (07/31/21: Initiated active upper trunk rot holding baby). STG Duration 07/23/21 (07/31/21: Progressed) . Exhibit Designer Goal (LTG) Pt will be independent with HEP of core and pelvic floor stretches and isolated PF strengthening exercises. (07/31/21: Pt doing TA, isolated PF, and sitting trunk rot ex). (08/21/21: HEP: Hip IR stretch, hands/knees push for rotation). LTG Duration 09/24/21 (08/21/21: Progressing) Assessment Summary Assessment Therapy has been focused on improving PF strength and core stability/strength to protect worsening of her diastasis rectus. She has improved in her body mechanics but needs occasional reminders of proper transfers sit<>supine to protect her DR. Her LBP has hindered her progress in improving her hip and lumbar mobility as well as her PF strength. She has improved her BM frequency and stool types for lessening of stress on her bladder. Pt sacrum is extremely flexed and tender with palpation; therefore there is soft tissue dysfunction in the pelvic region that would benefit from further skilled physical therapy. Manual therapy to fully balance her pelvic region is limited due to tightness on her R side (of sacrum and ischeum). The loss of her twin daughter may also be prolonging her rehabilitation process. The pt would benefit from continued physical therapy to continue working towards achieving the above stated goals. Physical Therapy Plan Frequency and Duration Frequency of Treatment 1x/Week Plan of Care Start Date 06/26/21 Plan of Care End Date 12/26/21 Next Visit Focus/Plan Next Note Type Treatment Note Next Visit Plan Review awareness of core/ cansiter pressure system and method for cough. Review HEP issued (Piriformis stretch in supine (knee to opposite shoulder starting with knee crossed over opposite knee), and Iliopsoas stretch). Assess DR (STG #2) Manual therapy for Low back tightness (R>L), Pelvic asymmetry & for SIJ balancing, Progress Core stabilization of TA tightening. Assess core strength. Add Exer & HEP: Low back ( flex,SB, R rot), PF stretching and core strengthening. Plan of Care Dates Plan of Care Start Date 06/26/21 Plan of Care End Date 12/26/21 Electronically Signed by: Madelaine Gore, PT 08/28/21 [id number] If you are in agreement with this Plan of Care, please return a signed and dated copy. I have reviewed this Plan of Care and certify that the skilled therapy services above are required to meet the patient?s needs. Physician Signature Date Printed Name and Credentials Clinical Instructor Signature Printed Name and Credentials
--- NOTE | 2021-10-16 17:03 | PT.OTN ---
Current Diagnoses Unspecified abdominal hernia without obstruction or gangrene (10/16/21) Constipation, unspecified (10/16/21) Low back pain, unspecified (10/16/21) Separation of muscle (nontraumatic), other site (10/16/21) Stress incontinence (female) (male) (10/16/21) Physical Therapy Treatment Note PT-OP-A Visit Information Start: 06/19/21 16:55 Freq: Status: Active Protocol: Document 10/16/21 09:08 LRN (Rec: 10/16/21 09:53 LRN [id number]) Out-Patient Physical Therapy Visit Information Visit Information Visit Type Treatment Note Visit Start Time 09:08 Visit Stop Time 09:48 Total Visit Minutes 40 Visit Number 8 PT-OP-B Current Condition Start: 06/19/21 16:55 Freq: Status: Active Protocol: Document 06/26/21 13:07 LRN (Rec: 06/26/21 19:30 LRN [id number]) Current Condition History of Current Condition Onset Date 02/26/2021 of 3rd son Current Complaints abdominal pain, PF weakness, incontinence, constipation. History of Current Condition Diastasis Rectus (DR) since first son's 06/19/2015. Was not able to get medical care, complaining she could not get any doctors to take her seriously. At the end of 2016 (Mar 2018 had 2nd son) found out she had a DR and had PT in 2017 for ~6 weeks from an orthopedic therapist. Pt states PT was helpful but therapist wasn't familiar with DR. Pt states she has a DR from sternum to belly button. Currently pain radiates from abdomen to anterior chest and causes low back pain. She obtains pain relief by lying prone, drinking cold water (to relieve burning sensation) or by applying pressure in the abdomen. She notes her DR causes a little incontinence because pain sometimes makes her nauseous and when she vomits she has urinary leakage . Additionally, she reports that after her gall bladder was removed she had trouble with BM's and because of her abdominal wall, it is hard to push stool out. Pt has familial support in her sister , who is also stationed at the base in [place]. Sometimes her is deployed. She plans to consider surgery if pain continues. . Prior Treatments and Tests Wears spanx daily since 2017. 200#, 5'4 (BMI is 34.3; healthy weight is 18.5-34.9, > 30 = obese) Developmental History Developmental History Pt is 5, Parity 3. She reports her last son Cook was born 02/26/2021, who had a twin sister, who passed at 2 months in utero Treatment Goals Patient/Caregiver Goals Pt goal is to strengthen the abdominal muscles and PF. Pt goal is to see the abdominal bulge go away, and relieve abdominal pain. Pt goal is to know ex's appropriate for abdominal wall . Prior Functional Status Baseline Function- ADL's Independent Baseline Function- Mobility Independent Baseline Function- Other Exercises for a little in 2019 , cardio eliptical and yoga and sometimes the bike. Current Functional Impairments (Reported) Functional Limitations- ADL's When home from deployment her spouse helps 1x/week, spouse works nights. Functional Limitations- Other Not currently exercising. Personal Factors Other Personal Factors That May Effect Mom of 3 boys, ages 6, 3 and 4 Therapy/Recovery months. Loss of girl baby from recent at 2 month in utero. BMI is 34.3; healthy weight is 18.5-34.9, >30 = obese Spouse sometimes not available due to deployment, currently deployed. Autistic 16 yr old son, Paraguard IUD Currently ADHD, depression and anxiety. PT-OP-C Subjective Start: 06/19/21 16:55 Freq: Status: Active Protocol: Document 10/16/21 09:08 LRN (Rec: 10/16/21 09:53 LRN [id number]) OP-PT Subjective Patient Comments Patient Comments Flying to [place] October 24-. Had to drive down and back to [place] yesterday. Has abdominal pain occasionally. States the LB is all messed up, and the spot behind the L shoulder blade and is adjusted by her chiropractor 1x/month. Saw a OMT [place], but she feels she was actually injured because the OMT did a chiropractic adjustment causing 2 other ribs being forced out. PT-OP-I Pelvic Floor Start: 06/19/21 16:55 Freq: Status: Active Protocol: Document 06/26/21 13:07 LRN (Rec: 06/26/21 19:30 LRN [id number]) Pelvic Floor Assessment Urine Urinary Symptoms Dribbling After Urination Leakage Size Small Leakage Cause Cough,Exercise,Sneeze Voiding Frequency 5-7 times per day Nocturia 1 Pads Used In 24 Hours 1 Urine Pad Type Panty Liner Bowel Bowel Surgery No Bowel Symptoms Constipation Bowel Movement Frequency 2-4x/week [place] Stool Chart Type 1-7 3 [place] Stool Chart Comments Stools range from 1-4, averages 2-3. Pelvic Clock Pelvic Clock Other 6 O'Clock Tightness Pt has very small vaginal opening. 3-6 O'Clock pt reported strange sensation but denied pain. Perineal Descent Resting Absent Bearing Absent Contraction Ability Manual Muscle Testing Left 3 Manual Muscle Testing Right 2 Manual Muscle Testing Anterior 0 Manual Muscle Testing Posterior 3 Muscle Endurance (Seconds) 3 Number of Quick Contractions In 10 2 Seconds PT-OP-J Posture/Palpation/Skin Start: 06/19/21 16:55 Freq: Status: Active Protocol: Document 10/16/21 09:08 LRN (Rec: 10/16/21 16:44 LRN [id number]) Palpation Assessment Location DR Palpation Location Abdominal Diastasis Palpation Findings Tenderness Palpation Details Above Umbilicus: 4 1.5 shallow finger width - tender 3 shallow 3 finger width - very tender 2 3 finger widths - tender 1 4 finger widths. Below umbilicus: 1 2.5 finger widths tilted off to the R side 2 1 finger width 3 closed 4 closed PT-OP-K Range of Motion Start: 06/19/21 16:55 Freq: Status: Active Protocol: Document 06/26/21 13:07 LRN (Rec: 06/26/21 19:30 LRN [id number]) Lumbar Spine Range of Motion Lumbar Spine Active Degrees Testing Position Standing Flexion 90 Extension 15 Rotation Left 25 Rotation Right 20 Lateral Flexion Left 20 Lateral Flexion Right 12 ROM Limitations Pain Comments Pain with ext and R SB, Hip Goniometric Range of Motion Hip Right Passive Testing Position Supine Internal Rotation 40 External Rotation 80 Left Passive Testing Position Supine Internal Rotation 45 External Rotation 80 PT-OP-M Strength Start: 06/19/21 16:55 Freq: Status: Active Protocol: Document 07/10/21 13:49 LRN (Rec: 07/10/21 14:54 LRN [id number]) Hip Strength Hip Manual Muscle Testing Right Abduction 5 Normal Adduction 5 Normal External Rotation 5 Normal Internal Rotation 5 Normal Left Abduction 5 Normal Adduction 4+ Good+ External Rotation 4 Good Internal Rotation 5 Normal PT-OP-Q Treatments Start: 02/25/22 16:55 Freq: Status: Active Protocol: Document 10/16/21 09:08 LRN (Rec: 10/16/21 09:53 LRN [id number]) Therapeutic Exercises Supine Exercises Trunk Rot strengthening Supine Exercise Name Trunk anson rot strengthening Side bilateral Reps/Minutes 5 Hold x 5 Comments Extra time taken to cue for proper positioning for ex. Iliopsoas stretch Supine Exercise Name Iliopsoas stretch Side bilateral Reps/Minutes 4' Comments Extra time to review & determine max stretch position Hip IR stretch Supine Exercise Name Piriformis stretch Side bilateral Reps/Minutes 4' Comments Cuing to not overstretch causing tingling in feet. TA tightening Supine Exercise Name TA tightening during breathing and without having to exhale to draw in. Reps/Minutes 10x 2 LE roll in/out/PF/TA Supine Exercise Name LE Roll in/out/PF/TA with breathing Reps/Minutes 10x each direction of PF holding (knees out vs knees in ) Manual Therapy Treatment Soft Tissue Mobilization Trunk rot Body Location Trunk rotators Mobilization Type Myofascial Release Intensity/Depth Moderate Body Position Hooklying Comments Release of back tensioin with stretch PT-OP-T Assessment and Plan Start: 06/19/21 16:55 Freq: Status: Active Protocol: Document 10/16/21 09:08 LRN (Rec: 10/16/21 09:53 LRN [id number]) Physical Therapy Assessment Goals Five Impairment Constipation Impairment BM's 2-4 times a week with stool types 1-4, avg 2-3. Short Term Goal (STG) Pt will be educated in bowel program and bowel massage. STG Duration 07/03/21 (07/03/21: MET GOAL) Multimedia Coordinator Goal (LTG) Pt will improve number of BM's per week with stool types 3-4 . (07/31/21: BM's 3x/week, usually type 2-3, this week type 4). (08/21/21: BM types are 2-4). (08/28/21: BM's almost daily and types 3-4). LTG Duration 07/24/21 (07/29/21: MET GOAL) Four Impairment Pt not able to perform an isolated PF contraction Short Term Goal (STG) Pt will be able to perform a PF contraction in the absence of abdominal/gluteal muscles. (07/31/21: Minimal tightening of abdomen and hip AD). STG Duration 07/24/21 (07/31/21: MET GOAL) Correction Goal (LTG) Pt will be able to maintain urinary continence in the presence of a cough or sneeze. (10/16/21: Able to remain continent 90% of the time). LTG Duration 09/24/21 (10/16/21: Progressing) Three Impairment Low back and abdominal pain rated 6-8/10. Impairment Poor core stability with onset of LBP and abdominal pain rated 6-8/10. Short Term Goal (STG) Decrease LBP to no greater than 3/10. (08/21/21: LBP rated 4-6/10, currently 2/10). (08/28/21: LBP in evenings 6-7/ 10, but after therapy 4-6/10). (10/16/21: LBP rated 4-5/10, upper back pain rated 3-5/10) STG Duration 08/14/21 (08/28/21: Improving, LBP rated 4-5/10). Correction Goal (LTG) Decrease abdominal pain on average to less than 6/10 ( initial eval pain rated 6-8/10 ) with occasional higher rated pain. (08/21/21: No shooting pain, abdominal pain has been better , rated 4/10). LTG Duration 09/24/21 (08/21/21: MET GOAL) Two Impairment Decreased core stability and abdominal DR Impairment Pt not able to perform a TA resulting in bulging of the belly with abdominal tightening. DR: Above Umbilicus: 4-shallow & closed, 3-2.5 finger width & shallow, 2-3 finger widths w/pain, 1-4 finger widths w/ pain. Below Umbilicus: 3 - shallow , closed, 2 - 2.5 finger width, 1 - 3.5 finger width Short Term Goal (STG) Education in core/canister pressures and strategies to decrease PF pressures with coughing. DECR in DR w/reduction in abdominal bulge. (07/10/21: Pt educ in core/ canister pressure to decrease PF pressure) (07/31/21: DR not assessed, but no doming with head lift). (08/21/21: No doming w/TA tight and head lift) (10/16/21: Above Umbilicus: 4 1.5 shallow finger width - tender; 3 shallow 3 finger width - very tender; 2 3 finger widths - tender; 1 4 finger widths. Below umbilicus: 1 2.5 finger widths tilted off to the R side; 2 1 finger width; 3 closed 4 closed STG Duration 08/14/21 (10/16/21: Partially met goal; pt education & decr dooming complete) Correction Goal (LTG) Improve strengthen with pt able to perform a TA and stabilize the core with movement of the LE's and a decrease in abdominal pain. (08/21/21: Abdominal pain has decreased to 4/10 from -12/02) LTG Duration 09/24/21 (08/21/21: Improved, abd pn decreased) One Impairment Pt lacks self care HEP. Short Term Goal (STG) Pt will be educated in ex's appropriate for abdominal wall at her current condition (TA & core stabilization ex's). (07/03/21: HEP: TA tightening in sup, side, sitting). (07/31/21: Initiated active upper trunk rot holding baby). STG Duration 07/23/21 (07/31/21: Progressed) . Correction Goal (LTG) Pt will be independent with HEP of core and pelvic floor stretches and isolated PF strengthening exercises. (07/31/21: Pt doing TA, isolated PF, and sitting trunk rot ex). (08/21/21: HEP: Hip IR stretch, hands/knees push for rotation). LTG Duration 09/24/21 (08/21/21: Progressing) Assessment Summary Assessment Pt urinary continence is improving. Her abdominal pain that appears associated to her DR has mildly improved below umbilcus, but above umbilicus she presents with quite a large DR of 4 finger widths 1 above the umbilicus and 3 finger widths 2-3 above umbilicus. Pt would benefit from further assessment for possible surgical assessent. She is having more back and rib pain, possibly due to poor core stability from DR and weak PF. Physical Therapy Plan Frequency and Duration Frequency of Treatment 1x/Week Plan of Care Start Date 06/26/21 Plan of Care End Date 12/26/21 Next Visit Focus/Plan Next Note Type Treatment Note Next Visit Plan Review awareness of core/ canister pressure system and method for cough. Review HEP issued Iliopsoas stretch. Manual therapy for Low back tightness (R>L), Pelvic asymmetry & for SIJ balancing, Progress Core stabilization of TA tightening. Assess core strength. Add Exer & HEP: Low back ( flex,SB, R rot), PF stretching and core strengthening.
--- NOTE | 2021-11-13 14:55 | PT.OTN ---
Current Diagnoses Unspecified abdominal hernia without obstruction or gangrene (11/13/21) Constipation, unspecified (11/13/21) Low back pain, unspecified (11/13/21) Separation of muscle (nontraumatic), other site (11/13/21) Stress incontinence (female) (male) (11/13/21) Physical Therapy Treatment Note PT-OP-A Visit Information Start: 06/19/21 16:55 Freq: Status: Active Protocol: Document 11/13/21 13:03 LRN (Rec: 11/13/21 13:47 LRN [id number]) Out-Patient Physical Therapy Visit Information Visit Information Visit Type Treatment Note Visit Start Time 13:03 Visit Stop Time 13:44 Total Visit Minutes 41 Visit Number 9 Evaluation Information Evaluation Date 06/26/21 Precautions Precautions Per pt report and intake form: Abdominal hernia. gall bladder removed in 03/2020. Has had a hx of miscarriage and currently spouse deployed, , ADHD, Depression & anxiety, oldest son is autistic. PT-OP-B Current Condition Start: 06/19/21 16:55 Freq: Status: Active Protocol: Document 06/26/21 13:07 LRN (Rec: 06/26/21 19:30 LRN [id number]) Current Condition History of Current Condition Onset Date 02/26/2021 of 3rd son Current Complaints abdominal pain, PF weakness, incontinence, constipation. History of Current Condition Diastasis Rectus (DR) since first son's 06/19/2015. Was not able to get medical care, complaining she could not get any doctors to take her seriously. At the end of 2016 (Mar 2018 had 2nd son) found out she had a DR and had PT in 2017 for ~6 weeks from an orthopedic therapist. Pt states PT was helpful but therapist wasn't familiar with DR. Pt states she has a DR from sternum to belly button. Currently pain radiates from abdomen to anterior chest and causes low back pain. She obtains pain relief by lying prone, drinking cold water (to relieve burning sensation) or by applying pressure in the abdomen. She notes her DR causes a little incontinence because pain sometimes makes her nauseous and when she vomits she has urinary leakage . Additionally, she reports that after her gall bladder was removed she had trouble with BM's and because of her abdominal wall, it is hard to push stool out. Pt has familial support in her sister , who is also stationed at the base in [place]. Sometimes her is deployed. She plans to consider surgery if pain continues. . Prior Treatments and Tests Wears spanx daily since 2017. 200#, 5'4 (BMI is 34.3; healthy weight is 18.5-34.9, > 30 = obese) Developmental History Developmental History Pt is 5, Parity 3. She reports her last son Cook was born 02/26/2021, who had a twin sister, who passed at 2 months in utero Treatment Goals Patient/Caregiver Goals Pt goal is to strengthen the abdominal muscles and PF. Pt goal is to see the abdominal bulge go away, and relieve abdominal pain. Pt goal is to know ex's appropriate for abdominal wall . Prior Functional Status Baseline Function- ADL's Independent Baseline Function- Mobility Independent Baseline Function- Other Exercises for a little in 2019 , cardio eliptical and yoga and sometimes the bike. Current Functional Impairments (Reported) Functional Limitations- ADL's When home from deployment her spouse helps 1x/week, spouse works nights. Functional Limitations- Other Not currently exercising. Personal Factors Other Personal Factors That May Effect Mom of 3 boys, ages 6, 3 and 4 Therapy/Recovery months. Loss of girl baby from recent at 2 month in utero. BMI is 34.3; healthy weight is 18.5-34.9, >30 = obese Spouse sometimes not available due to deployment, currently deployed. Autistic 16 yr old son, Paraguard IUD Currently ADHD, depression and anxiety. PT-OP-C Subjective Start: 06/19/21 16:55 Freq: Status: Active Protocol: Document 11/13/21 13:03 LRN (Rec: 11/13/21 13:47 LRN [id number]) OP-PT Subjective Patient Comments Patient Comments BM's are weird, had constipation in [place] Couple time leaked a little after urinating. Hasn't leaked with coughing or sneezing, unless has an urge to pee. Has had more abdominal cramping and constipation. PT-OP-I Pelvic Floor Start: 06/19/21 16:55 Freq: Status: Active Protocol: Document 06/26/21 13:07 LRN (Rec: 06/26/21 19:30 LRN [id number]) Pelvic Floor Assessment Urine Urinary Symptoms Dribbling After Urination Leakage Size Small Leakage Cause Cough,Exercise,Sneeze Voiding Frequency 5-7 times per day Nocturia 1 Pads Used In 24 Hours 1 Urine Pad Type Panty Liner Bowel Bowel Surgery No Bowel Symptoms Constipation Bowel Movement Frequency 2-4x/week [place] Stool Chart Type 1-7 3 [place] Stool Chart Comments Stools range from 1-4, averages 2-3. Pelvic Clock Pelvic Clock Other 6 O'Clock Tightness Pt has very small vaginal opening. 3-6 O'Clock pt reported strange sensation but denied pain. Perineal Descent Resting Absent Bearing Absent Contraction Ability Manual Muscle Testing Left 3 Manual Muscle Testing Right 2 Manual Muscle Testing Anterior 0 Manual Muscle Testing Posterior 3 Muscle Endurance (Seconds) 3 Number of Quick Contractions In 10 2 Seconds PT-OP-J Posture/Palpation/Skin Start: 06/19/21 16:55 Freq: Status: Active Protocol: Document 10/16/21 09:08 LRN (Rec: 10/16/21 16:44 LRN [id number]) Palpation Assessment Location DR Palpation Location Abdominal Diastasis Palpation Findings Tenderness Palpation Details Above Umbilicus: 4 1.5 shallow finger width - tender 3 shallow 3 finger width - very tender 2 3 finger widths - tender 1 4 finger widths. Below umbilicus: 1 2.5 finger widths tilted off to the R side 2 1 finger width 3 closed 4 closed PT-OP-K Range of Motion Start: 06/19/21 16:55 Freq: Status: Active Protocol: Document 06/26/21 13:07 LRN (Rec: 06/26/21 19:30 LRN [id number]) Lumbar Spine Range of Motion Lumbar Spine Active Degrees Testing Position Standing Flexion 90 Extension 15 Rotation Left 25 Rotation Right 20 Lateral Flexion Left 20 Lateral Flexion Right 12 ROM Limitations Pain Comments Pain with ext and R SB, Hip Goniometric Range of Motion Hip Right Passive Testing Position Supine Internal Rotation 40 External Rotation 80 Left Passive Testing Position Supine Internal Rotation 45 External Rotation 80 PT-OP-M Strength Start: 06/19/21 16:55 Freq: Status: Active Protocol: Document 07/10/21 13:49 LRN (Rec: 07/10/21 14:54 LRN [id number]) Hip Strength Hip Manual Muscle Testing Right Abduction 5 Normal Adduction 5 Normal External Rotation 5 Normal Internal Rotation 5 Normal Left Abduction 5 Normal Adduction 4+ Good+ External Rotation 4 Good Internal Rotation 5 Normal PT-OP-Q Treatments Start: 06/19/21 16:55 Freq: Status: Active Protocol: Document 11/13/21 13:03 LRN (Rec: 11/13/21 13:47 LRN [id number]) Therapeutic Exercises Supine Exercises DKTC Supine Exercise Name DKTC Side bilateral Reps/Minutes 2' Self manual trunk rotator stretch Supine Exercise Name Self manual stretch to trunk rotators. Side bilateral Reps/Minutes 4' Iliopsoas stretch Supine Exercise Name Iliopsoas stretch Side bilateral Reps/Minutes 4' Comments Extra time to review & determine max stretch position Core rot Supine Exercise Name LTR for core rot stretch Side bilateral Comments cuing to PPT and tighten TA with LTR roll, no pain with RTL. Hip IR stretch Supine Exercise Name Piriformis stretch Side bilateral Reps/Minutes 4' Comments Cuing to not overstretch causing tingling in feet. Sitting Exercises Coughing Sitting Exercise Name Cough training Reps/Minutes 1' Comments v cuing of order of coordination tightening of TA/ PF. Therapeutic Activity Therapeutic Activity Transfer training for DR protection Name Transfer trng for DR protection & coordination of transfer w/PF/TA/breathe Comments Pt needing v cuing to coordination of mvmt with breathing/PF/TA. Manual Therapy Treatment Soft Tissue Mobilization Balancing of sacrum Body Location Ileum, Sacrum, Ischial tuberosity Mobilization Type Myofascial Release,Sustained Pressure Intensity/Depth Moderate Body Position Sitting Comments Inferior glide R superior sacrum Sheer of R sacrum to the L PA of R sacral sulcus PA of R NELIDA PA of Ischial Tuberosity, 6 point Sacral balancing Trunk rot Body Location Trunk rotators Mobilization Type Myofascial Release Intensity/Depth Moderate Body Position Hooklying Comments Release of back tensioin with stretch Self-Care/Home Management Treatment Education Patient Education Body Mechanics Other Education Reviewed proper transfer sit<> sup with coordinated breathing , TA, & PF contraction. PT-OP-T Assessment and Plan Start: 06/19/21 16:55 Freq: Status: Active Protocol: Document 11/13/21 13:03 LRN (Rec: 11/13/21 13:47 LRN [id number]) Physical Therapy Assessment Goals Four Impairment Pt not able to perform an isolated PF contraction Short Term Goal (STG) Pt will be able to perform a PF contraction in the absence of abdominal/gluteal muscles. (07/31/21: Minimal tightening of abdomen and hip AD). STG Duration 07/24/21 (07/31/21: MET GOAL) Accounting Supervisor Goal (LTG) Pt will be able to maintain urinary continence in the presence of a cough or sneeze. (10/16/21: Able to remain continent 90% of the time). (11/13/21: No leakage with cough or sneeze) LTG Duration 09/24/21 (11/13/21: MET GOAL ) Three Impairment Low back and abdominal pain rated 6-8/10. Impairment Poor core stability with onset of LBP and abdominal pain rated 6-8/10. Short Term Goal (STG) Decrease LBP to no greater than 3/10. (08/21/21: LBP rated 4-6/10, currently 2/10). (08/28/21: LBP in evenings 6-7/ 10, but after therapy 4-6/10). (10/16/21: LBP rated 4-5/10, upper back pain rated 3-5/10) (11/13/21: LBP rated 3/10, upper back/neck pain rated 5-6 /10) STG Duration 08/14/21 (11/13/21: Improving, LBP rated 3/10). Accounting Supervisor Goal (LTG) Decrease abdominal pain on average to less than 6/10 ( initial eval pain rated 6-8/10 ) with occasional higher rated pain. (08/21/21: No shooting pain, abdominal pain has been better , rated 4/10). LTG Duration 09/24/21 (08/21/21: MET GOAL) Two Impairment Decreased core stability and abdominal DR Impairment Pt not able to perform a TA resulting in bulging of the belly with abdominal tightening. DR: Above Umbilicus: 4-shallow & closed, 3-2.5 finger width & shallow, 2-3 finger widths w/pain, 1-4 finger widths w/ pain. Below Umbilicus: 3 - shallow , closed, 2 - 2.5 finger width, 1 - 3.5 finger width Short Term Goal (STG) Education in core/canister pressures and strategies to decrease PF pressures with coughing. DECR in DR w/reduction in abdominal bulge. (07/10/21: Pt educ in core/ canister pressure to decrease PF pressure) (07/31/21: DR not assessed, but no doming with head lift). (08/21/21: No doming w/TA tight and head lift) (10/16/21: Above Umbilicus: 4 1.5 shallow finger width - tender; 3 shallow 3 finger width - very tender; 2 3 finger widths - tender; 1 4 finger widths. Below umbilicus: 1 2.5 finger widths tilted off to the R side; 2 1 finger width; 3 closed 4 closed STG Duration 08/14/21 (10/16/21: Partially met goal; pt education & decr dooming complete) Shelter Goal (LTG) Improve strengthen with pt able to perform a TA and stabilize the core with movement of the LE's and a decrease in abdominal pain. (08/21/21: Abdominal pain has decreased to 4/10 from -12/02) LTG Duration 09/24/21 (08/21/21: Improved, abd pn decreased) One Impairment Pt lacks self care HEP. Short Term Goal (STG) Pt will be educated in ex's appropriate for abdominal wall at her current condition (TA & core stabilization ex's). (07/03/21: HEP: TA tightening in sup, side, sitting). (07/31/21: Initiated active upper trunk rot holding baby). STG Duration 07/23/21 (07/31/21: Progressed) . Accounting Supervisor Goal (LTG) Pt will be independent with HEP of core and pelvic floor stretches and isolated PF strengthening exercises. (07/31/21: Pt doing TA, isolated PF, and sitting trunk rot ex). (08/21/21: HEP: Hip IR stretch, hands/knees push for rotation). LTG Duration 09/24/21 (08/21/21: Progressing) Assessment Summary Assessment Pt urinary leakage with cough or sneeze is controlled except when having an urge from holding urine too long. Not able to fully correct pt's Sacral R rot, lower L/S R rot, R anter rot innominate, outflare/L therapist respiratory rot innominate, inflare. Physical Therapy Plan Frequency and Duration Frequency of Treatment 1x/Week Plan of Care Start Date 06/26/21 Plan of Care End Date 12/26/21 Next Visit Focus/Plan Next Note Type Progress Note Next Visit Plan Assess core strength. Manual therapy for Low back tightness (R>L), Pelvic asymmetry & for SIJ balancing, Progress Core stabilization of TA tightening. Review DTC stretch and add Exer/HEP: Low back (flex,SB, R rot), PF stretching and core strengthening.
--- NOTE | 2021-11-27 12:35 | PT.OTN ---
Current Diagnoses Unspecified abdominal hernia without obstruction or gangrene (11/27/21) Constipation, unspecified (11/27/21) Low back pain, unspecified (11/27/21) Separation of muscle (nontraumatic), other site (11/27/21) Stress incontinence (female) (male) (11/27/21) Physical Therapy Treatment Note PT-OP-A Visit Information Start: 06/19/21 16:55 Freq: Status: Active Protocol: Document 11/27/21 11:27 LRN (Rec: 11/27/21 12:34 LRN [id number]) Out-Patient Physical Therapy Visit Information Visit Information Visit Type Treatment Note Visit Note 3 after PN Visit Start Time 11:28 Visit Stop Time 12:12 Total Visit Minutes 44 Visit Number 10 Evaluation Information Evaluation Date 06/26/21 Precautions Precautions Per pt report and intake form: Abdominal hernia. gall bladder removed in 03/2020. Has had a hx of miscarriage and currently spouse deployed, , ADHD, Depression & anxiety, oldest son is autistic. PT-OP-B Current Condition Start: 06/19/21 16:55 Freq: Status: Active Protocol: Document 06/26/21 13:07 LRN (Rec: 06/26/21 19:30 LRN [id number]) Current Condition History of Current Condition Onset Date 02/26/2021 of 3rd son Current Complaints abdominal pain, PF weakness, incontinence, constipation. History of Current Condition Diastasis Rectus (DR) since first son's 06/19/2015. Was not able to get medical care, complaining she could not get any doctors to take her seriously. At the end of 2016 (Mar 2018 had 2nd son) found out she had a DR and had PT in 2017 for ~6 weeks from an orthopedic therapist. Pt states PT was helpful but therapist wasn't familiar with DR. Pt states she has a DR from sternum to belly button. Currently pain radiates from abdomen to anterior chest and causes low back pain. She obtains pain relief by lying prone, drinking cold water (to relieve burning sensation) or by applying pressure in the abdomen. She notes her DR causes a little incontinence because pain sometimes makes her nauseous and when she vomits she has urinary leakage . Additionally, she reports that after her gall bladder was removed she had trouble with BM's and because of her abdominal wall, it is hard to push stool out. Pt has familial support in her sister , who is also stationed at the base in [place]. Sometimes her is deployed. She plans to consider surgery if pain continues. . Prior Treatments and Tests Wears spanx daily since 2017. 200#, 5'4 (BMI is 34.3; healthy weight is 18.5-34.9, > 30 = obese) Developmental History Developmental History Pt is 5, Parity 3. She reports her last son Cook was born 02/26/2021, who had a twin sister, who passed at 2 months in utero Treatment Goals Patient/Caregiver Goals Pt goal is to strengthen the abdominal muscles and PF. Pt goal is to see the abdominal bulge go away, and relieve abdominal pain. Pt goal is to know ex's appropriate for abdominal wall . Prior Functional Status Baseline Function- ADL's Independent Baseline Function- Mobility Independent Baseline Function- Other Exercises for a little in 2019 , cardio eliptical and yoga and sometimes the bike. Current Functional Impairments (Reported) Functional Limitations- ADL's When home from deployment her spouse helps 1x/week, spouse works nights. Functional Limitations- Other Not currently exercising. Personal Factors Other Personal Factors That May Effect Mom of 3 boys, ages 6, 3 and 4 Therapy/Recovery months. Loss of girl baby from recent at 2 month in utero. BMI is 34.3; healthy weight is 18.5-34.9, >30 = obese Spouse sometimes not available due to deployment, currently deployed. Autistic 16 yr old son, Paraguard IUD Currently ADHD, depression and anxiety. PT-OP-C Subjective Start: 06/19/21 16:55 Freq: Status: Active Protocol: Document 11/27/21 11:27 LRN (Rec: 11/27/21 12:34 LRN [id number]) OP-PT Subjective Patient Comments Patient Comments Exhausted today from baby feeding. Spouse is deploying soon. Has been constipated a lot lately, not helping her back pain. Possibly due to having no gall bladder, stools have been runny and constipated. Back pain rated 3 /10, yesterday her abdominal back pain was 6.5/10. c/o low back pinching (SIJ's) with leg lifts. PT-OP-I Pelvic Floor Start: 06/19/21 16:55 Freq: Status: Active Protocol: Document 06/26/21 13:07 LRN (Rec: 06/26/21 19:30 LRN [id number]) Pelvic Floor Assessment Urine Urinary Symptoms Dribbling After Urination Leakage Size Small Leakage Cause Cough,Exercise,Sneeze Voiding Frequency 5-7 times per day Nocturia 1 Pads Used In 24 Hours 1 Urine Pad Type Panty Liner Bowel Bowel Surgery No Bowel Symptoms Constipation Bowel Movement Frequency 2-4x/week [place] Stool Chart Type 1-7 3 [place] Stool Chart Comments Stools range from 1-4, averages 2-3. Pelvic Clock Pelvic Clock Other 6 O'Clock Tightness Pt has very small vaginal opening. 3-6 O'Clock pt reported strange sensation but denied pain. Perineal Descent Resting Absent Bearing Absent Contraction Ability Manual Muscle Testing Left 3 Manual Muscle Testing Right 2 Manual Muscle Testing Anterior 0 Manual Muscle Testing Posterior 3 Muscle Endurance (Seconds) 3 Number of Quick Contractions In 10 2 Seconds PT-OP-J Posture/Palpation/Skin Start: 06/19/21 16:55 Freq: Status: Active Protocol: Document 10/16/21 09:08 LRN (Rec: 10/16/21 16:44 LRN [id number]) Palpation Assessment Location DR Palpation Location Abdominal Diastasis Palpation Findings Tenderness Palpation Details Above Umbilicus: 4 1.5 shallow finger width - tender 3 shallow 3 finger width - very tender 2 3 finger widths - tender 1 4 finger widths. Below umbilicus: 1 2.5 finger widths tilted off to the R side 2 1 finger width 3 closed 4 closed PT-OP-K Range of Motion Start: 06/19/21 16:55 Freq: Status: Active Protocol: Document 06/26/21 13:07 LRN (Rec: 06/26/21 19:30 LRN [id number]) Lumbar Spine Range of Motion Lumbar Spine Active Degrees Testing Position Standing Flexion 90 Extension 15 Rotation Left 25 Rotation Right 20 Lateral Flexion Left 20 Lateral Flexion Right 12 ROM Limitations Pain Comments Pain with ext and R SB, Hip Goniometric Range of Motion Hip Right Passive Testing Position Supine Internal Rotation 40 External Rotation 80 Left Passive Testing Position Supine Internal Rotation 45 External Rotation 80 PT-OP-M Strength Start: 06/19/21 16:55 Freq: Status: Active Protocol: Document 07/10/21 13:49 LRN (Rec: 07/10/21 14:54 LRN [id number]) Hip Strength Hip Manual Muscle Testing Right Abduction 5 Normal Adduction 5 Normal External Rotation 5 Normal Internal Rotation 5 Normal Left Abduction 5 Normal Adduction 4+ Good+ External Rotation 4 Good Internal Rotation 5 Normal PT-OP-Q Treatments Start: 06/19/21 16:55 Freq: Status: Active Protocol: Document 11/27/21 11:27 LRN (Rec: 11/27/21 12:34 LRN [id number]) Therapeutic Exercises Supine Exercises Trunk Rot strengthening Supine Exercise Name Trunk tameka rot strengthening Side bilateral Equipment Used W/O Ball and with Red ball Reps/Minutes 10 Hold x 2 RLE, x1 LLE - 5 cycles Comments Extra time taken to cue for proper positioning for ex. TA tightening Supine Exercise Name TA tightening during breathing and without having to exhale to draw in. Reps/Minutes 10x 2 Bowel massage Supine Exercise Name Bowel massage Reps/Minutes 3' Standing Exercises Active trunk Rot Standing Exercise Name Trunk Rot Side bilateral Equipment Used Lev 2 TB Trunk Tameka Rot Standing Exercise Name Trunk Tameka Rot: Elbow 90 deg' s flex>straight Side bilateral Equipment Used Lev 2 TB Self-Care/Home Management Treatment Education Patient Education Home Exercise Program Activities Self-Care/Home Management Activities Issued & reviewed HEP: Standing trunk rot strengthening, tameka & isotonic with TBand. Verbal I/S for supine Isometric trunk rot. PT-OP-T Assessment and Plan Start: 06/19/21 16:55 Freq: Status: Active Protocol: Document 11/27/21 11:27 LRN (Rec: 11/27/21 12:34 N [id number]) Physical Therapy Assessment Goals Three Impairment Low back and abdominal pain rated 6-8/10. Impairment Poor core stability with onset of LBP and abdominal pain rated 6-8/10. Short Term Goal (STG) Decrease LBP to no greater than 3/10. (08/21/21: LBP rated 4-6/10, currently 2/10). (08/28/21: LBP in evenings 6-7/ 10, but after therapy 4-6/10). (10/16/21: LBP rated 4-5/10, upper back pain rated 3-5/10) (11/13/21: LBP rated 3/10, upper back/neck pain rated 5-6 /10) (11/27/21: Back pain ranges 3-6 .5/10) STG Duration 08/14/21 (11/27/21: LBP rated 3 -6.5/10). [employer] Supervisor Goal (LTG) Decrease abdominal pain on average to less than 6/10. ( initial eval pain rated 6-8/10 ) with occasional higher rated pain. (08/21/21: No shooting pain, abdominal pain has been better , rated 4/10). LTG Duration 09/24/21 (08/21/21: MET GOAL) Two Impairment Decreased core stability and abdominal DR Impairment Pt not able to perform a TA resulting in bulging of the belly with abdominal tightening. 9DR: Above Umbilicus: 4-shallow & closed, 3-2.5 finger width & shallow, 2-3 finger widths w/pain, 1-4 finger widths w/ pain. Below Umbilicus: 3 - shallow , closed, 2 - 2.5 finger width, 1 - 3.5 finger width Short Term Goal (STG) Education in core/canister pressures and strategies to decrease PF pressures with coughing. DECR in DR w/reduction in abdominal bulge. (07/10/21: Pt educ in core/ canister pressure to decrease PF pressure) (07/31/21: DR not assessed, but no doming with head lift). (08/21/21: No doming w/TA tight and head lift) (10/16/21: Above Umbilicus: 4 1.5 shallow finger width - tender; 3 shallow 3 finger width - very tender; 2 3 finger widths - tender; 1 4 finger widths. Below umbilicus: 1 2.5 finger widths tilted off to the R side; 2 1 finger width; 3 closed 4 closed) (11/27/21: Above Umbilicus: 4 1.5 shallow finger width - tender; 3 shallow 3 finger width-tender; 2 3 finger widths-tender; 1 4 finger widths. Below umbilicus: 1 2.5 finger widths shallow; 2 1 finger width shallow; 3- 4 closed). STG Duration 08/14/21 (11/27/21: Partially met goal; pt education & no [place], DR same) [employer] Supervisor Goal (LTG) Improve strengthen with pt able to perform a TA and stabilize the core with movement of the LE's and a decrease in abdominal pain. (08/21/21: Abdominal pain has decreased to 4/10 from 6-8/10) (11/27/21: Loss of core stability with lifting of RLE) . LTG Duration 09/24/21 (11/27/21: Core stab only with LLE lift) One Impairment Pt lacks self care HEP. Short Term Goal (STG) Pt will be educated in ex's appropriate for abdominal wall at her current condition (TA & core stabilization ex's). (07/03/21: HEP: TA tightening in sup, side, sitting). (07/31/21: Initiated active upper trunk rot holding baby). (11/27/21: HEP: Standing trunk rot-tameka/isotonic and verbal I /S for supine tameka) STG Duration 07/23/21 (11/27/21: Progressed) . Halfway Goal (LTG) Pt will be independent with HEP of core and pelvic floor stretches and isolated PF strengthening exercises. (07/31/21: Pt doing TA, isolated PF, and sitting trunk rot ex). (08/21/21: HEP: Hip IR stretch, hands/knees push for rotation). supine tameka) LTG Duration 09/24/21 (08/21/21: Progressing) Progress Towards Goals Progress Comments Progressed HEP. Improved TA tightening Core stability with mvmt of LLE. Assessment Summary Assessment Pt DR is more shallow below umbilicus and less tender above the umbilicus, but width of separation is about the same. The pt demonstrates ability to tighten TA without substitute muscles and can mantain tightness with breathing, with mild loss of tightening above umbilicus. Pt appears to have core weakness with trunk rot R>L. LBP overall pain level is less at 6/10 (was 8/10), but ranges from 3-6.5/10. PF strengthening progression is needed to maintain continence with cough or sneeze. Physical Therapy Plan Frequency and Duration Frequency of Treatment 1x/Week Plan of Care Start Date 06/26/21 Plan of Care End Date 12/26/21 Next Visit Focus/Plan Next Note Type Treatment Note Next Visit Plan Progress PF strengthening, Manual therapy for Low back tightness (R>L), Check for Pelvic asymmetry & for SIJ balancing, Progress Core stabilization with LE movments. Review DTC stretch and add Exer/HEP: Low back (flex,SB, R rot).
--- NOTE | 2021-12-25 13:26 | PT-OP ANOTE ---
Pt called per phone, she states she cancelled via telavox with txt. States her spouse's deployment was moved up. Pt reminded of next appt on 01/01/22.
--- NOTE | 2022-01-01 12:25 | PT-OP ANOTE ---
Noted pt cancelled all appointments with reason that her is on deployment. Msg left for pt noting her POC and if she was not planning on returning until her spouse returns from deployment to return call to determine her intent with therapy. Also requested pt note how much abdominal pain she is having.
--- NOTE | 2022-01-01 12:42 | PT-OP ANOTE ---
Per phone conversation with patient, Vanita reports she is trying to find childcare, but is having trouble, so thinks the best thing to do is discharge and she will seek a new referral when her spouse returns from deployment. Pt reports her LBP is 2-6/10 and her abdominal pain is 2-4/10 on good days and 5-6/10 on bad days. Her shooting abdominal pain is less often but still present. Pt will be discharged from therapy due to inability to attend with spouse on deployment, pt is agreeable.
--- NOTE | 2022-01-01 17:18 | PT.OPDS ---
Current Diagnoses Unspecified abdominal hernia without obstruction or gangrene (11/27/21) Constipation, unspecified (11/27/21) Low back pain, unspecified (11/27/21) Separation of muscle (nontraumatic), other site (11/27/21) Stress incontinence (female) (male) (11/27/21) Visit Care Team Role Provider Type Lauren Steve MD Family Provider Physician Specialty: Gynecology VAULT CLERK Obstetrics Address: [address] [place] [address], [id number] Email: [email or web address] Yudelka Lee MD Attending Provider Non-Staff Primary Care Provider Referring Provider Specialty: Medical Address: [address] [place] [address], [id number] Email: Visit Number Visit Number 10 Discharge Summary PT-OP-B Current Condition Start: 06/19/21 16:55 Freq: Status: Active Protocol: Document 06/26/21 13:07 LRN (Rec: 06/26/21 19:30 LRN [id number]) Current Condition History of Current Condition Onset Date 02/26/2021 of 3rd son Current Complaints abdominal pain, PF weakness, incontinence, constipation. History of Current Condition Diastasis Rectus (DR) since first son's 06/19/2015. Was not able to get medical care, complaining she could not get any doctors to take her seriously. At the end of 2016 (Mar 2018 had 2nd son) found out she had a DR and had PT in 2017 for ~6 weeks from an orthopedic therapist. Pt states PT was helpful but therapist wasn't familiar with DR. Pt states she has a DR from sternum to belly button. Currently pain radiates from abdomen to anterior chest and causes low back pain. She obtains pain relief by lying prone, drinking cold water (to relieve burning sensation) or by applying pressure in the abdomen. She notes her DR causes a little incontinence because pain sometimes makes her nauseous and when she vomits she has urinary leakage . Additionally, she reports that after her gall bladder was removed she had trouble with BM's and because of her abdominal wall, it is hard to push stool out. Pt has familial support in her sister , who is also stationed at the base in [place]. Sometimes her is deployed. She plans to consider surgery if pain continues. . Prior Treatments and Tests Wears spanx daily since 2017. 200#, 5'4 (BMI is 34.3; healthy weight is 18.5-34.9, > 30 = obese) Developmental History Developmental History Pt is 5, Parity 3. She reports her last son Cook was born 02/26/2021, who had a twin sister, who passed at 2 months in utero Treatment Goals Patient/Caregiver Goals Pt goal is to strengthen the abdominal muscles and PF. Pt goal is to see the abdominal bulge go away, and relieve abdominal pain. Pt goal is to know ex's appropriate for abdominal wall . Prior Functional Status Baseline Function- ADL's Independent Baseline Function- Mobility Independent Baseline Function- Other Exercises for a little in 2019 , cardio eliptical and yoga and sometimes the bike. Current Functional Impairments (Reported) Functional Limitations- ADL's When home from deployment her spouse helps 1x/week, spouse works nights. Functional Limitations- Other Not currently exercising. Personal Factors Other Personal Factors That May Effect Mom of 3 boys, ages 6, 3 and 4 Therapy/Recovery months. Loss of girl baby from recent at 2 month in utero. BMI is 34.3; healthy weight is 18.5-34.9, >30 = obese Spouse sometimes not available due to deployment, currently deployed. Autistic 16 yr old son, Paraguard IUD Currently ADHD, depression and anxiety. PT-OP-C Subjective Start: 06/19/21 16:55 Freq: Status: Active Protocol: Document 01/01/22 12:46 LRN (Rec: 01/01/22 12:47 LRN [id number]) OP-PT Subjective Patient Comments Patient Comments Per phone conversation: Pt reports her LBP is 2-6/10 and her abdominal pain is 2-4/10 on good days and 5-6/10 on bad days. Her shooting abdominal pain is less often but still present. Pt agreeable to discharged from therapy due to inability to attend with spouse on deployment.. PT-OP-I Pelvic Floor Start: 06/19/21 16:55 Freq: Status: Active Protocol: Document 06/26/21 13:07 LRN (Rec: 06/26/21 19:30 LRN [id number]) Pelvic Floor Assessment Urine Urinary Symptoms Dribbling After Urination Leakage Size Small Leakage Cause Cough,Exercise,Sneeze Voiding Frequency 5-7 times per day Nocturia 1 Pads Used In 24 Hours 1 Urine Pad Type Panty Liner Bowel Bowel Surgery No Bowel Symptoms Constipation Bowel Movement Frequency 2-4x/week [place] Stool Chart Type 1-7 3 [place] Stool Chart Comments Stools range from 1-4, averages 2-3. Pelvic Clock Pelvic Clock Other 6 O'Clock Tightness Pt has very small vaginal opening. 3-6 O'Clock pt reported strange sensation but denied pain. Perineal Descent Resting Absent Bearing Absent Contraction Ability Manual Muscle Testing Left 3 Manual Muscle Testing Right 2 Manual Muscle Testing Anterior 0 Manual Muscle Testing Posterior 3 Muscle Endurance (Seconds) 3 Number of Quick Contractions In 10 2 Seconds PT-OP-J Posture/Palpation/Skin Start: 06/19/21 16:55 Freq: Status: Active Protocol: Document 10/16/21 09:08 LRN (Rec: 10/16/21 16:44 LRN [id number]) Palpation Assessment Location DR Palpation Location Abdominal Diastasis Palpation Findings Tenderness Palpation Details Above Umbilicus: 4 1.5 shallow finger width - tender 3 shallow 3 finger width - very tender 2 3 finger widths - tender 1 4 finger widths. Below umbilicus: 1 2.5 finger widths tilted off to the R side 2 1 finger width 3 closed 4 closed PT-OP-K Range of Motion Start: 06/19/21 16:55 Freq: Status: Active Protocol: Document 06/26/21 13:07 LRN (Rec: 06/26/21 19:30 LRN [id number]) Lumbar Spine Range of Motion Lumbar Spine Active Degrees Testing Position Standing Flexion 90 Extension 15 Rotation Left 25 Rotation Right 20 Lateral Flexion Left 20 Lateral Flexion Right 12 ROM Limitations Pain Comments Pain with ext and R SB, Hip Goniometric Range of Motion Hip Right Passive Testing Position Supine Internal Rotation 40 External Rotation 80 Left Passive Testing Position Supine Internal Rotation 45 External Rotation 80 PT-OP-M Strength Start: 06/19/21 16:55 Freq: Status: Active Protocol: Document 07/10/21 13:49 LRN (Rec: 07/10/21 14:54 LRN [id number]) Hip Strength Hip Manual Muscle Testing Right Abduction 5 Normal Adduction 5 Normal External Rotation 5 Normal Internal Rotation 5 Normal Left Abduction 5 Normal Adduction 4+ Good+ External Rotation 4 Good Internal Rotation 5 Normal PT-OP-T Assessment and Plan Start: 06/19/21 16:55 Freq: Status: Active Protocol: Document 01/01/22 12:46 LRN (Rec: 01/01/22 12:47 LRN [id number]) Physical Therapy Assessment Goals Five Impairment Constipation Impairment BM's 2-4 times a week with stool types 1-4, avg 2-3. Short Term Goal (STG) Pt will be educated in bowel program and bowel massage. STG Duration 07/03/21 (07/03/21: MET GOAL) Shelter Goal (LTG) Pt will improve number of BM's per week with stool types 3-4 . (07/31/21: BM's 3x/week, usually type 2-3, this week type 4). (08/21/21: BM types are 2-4). (08/28/21: BM's almost daily and types 3-4). LTG Duration 07/24/21 (07/29/21: MET GOAL) Four Impairment Pt not able to perform an isolated PF contraction Short Term Goal (STG) Pt will be able to perform a PF contraction in the absence of abdominal/gluteal muscles. (07/31/21: Minimal tightening of abdomen and hip AD). STG Duration 07/24/21 (07/31/21: MET GOAL) Shelter Goal (LTG) Pt will be able to maintain urinary continence in the presence of a cough or sneeze. (10/16/21: Able to remain continent 90% of the time). (11/13/21: No leakage with cough or sneeze) LTG Duration 09/24/21 (11/13/21: MET GOAL ) Three Impairment Low back and abdominal pain rated 6-8/10. Impairment Poor core stability with onset of LBP and abdominal pain rated 6-8/10. Short Term Goal (STG) Decrease LBP to no greater than 3/10. (08/21/21: LBP rated 4-6/10, currently 2/10). (08/28/21: LBP in evenings 6-7/ 10, but after therapy 4-6/10). (10/16/21: LBP rated 4-5/10, upper back pain rated 3-5/10) (11/13/21: LBP rated 3/10, upper back/neck pain rated 5-6 /10) (11/27/21: Back pain ranges 3-6 .5/10) STG Duration 08/14/21 (11/27/21: Improved, goal not met). Shelter Goal (LTG) Decrease abdominal pain on average to less than 6/10. ( initial eval pain rated 6-8/10 ) with occasional higher rated pain. (08/21/21: No shooting pain, abdominal pain has been better , rated 4/10). LTG Duration 09/24/21 (08/21/21: MET GOAL) Two Impairment Decreased core stability and abdominal DR Impairment Pt not able to perform a TA resulting in bulging of the belly with abdominal tightening. 9DR: Above Umbilicus: 4-shallow & closed, 3-2.5 finger width & shallow, 2-3 finger widths w/pain, 1-4 finger widths w/ pain. Below Umbilicus: 3 - shallow , closed, 2 - 2.5 finger width, 1 - 3.5 finger width Short Term Goal (STG) Education in core/canister pressures and strategies to decrease PF pressures with coughing. DECR in DR w/reduction in abdominal bulge. (07/10/21: Pt educ in core/ canister pressure to decrease PF pressure) (07/31/21: DR not assessed, but no doming with head lift). (08/21/21: No doming w/TA tight and head lift) (10/16/21: Above Umbilicus: 4 1.5 shallow finger width - tender; 3 shallow 3 finger width - very tender; 2 3 finger widths - tender; 1 4 finger widths. Below umbilicus: 1 2.5 finger widths tilted off to the R side; 2 1 finger width; 3 closed 4 closed) (11/27/21: Above Umbilicus: 4 1.5 shallow finger width - tender; 3 shallow 3 finger width-tender; 2 3 finger widths-tender; 1 4 finger widths. Below umbilicus: 1 2.5 finger widths shallow; 2 1 finger width shallow; 3- 4 closed). STG Duration 08/14/21 (11/27/21: Partially met goal; pt education & no [place], DR truong) Reamer Hand Goal (LTG) Improve strengthen with pt able to perform a TA and stabilize the core with movement of the LE's and a decrease in abdominal pain. (08/21/21: Abdominal pain has decreased to 4/10 from 6-8/10) (11/27/21: Loss of core stability with lifting of RLE) . LTG Duration 09/24/21 (11/27/21: Partially met goal, Core stab only with LLE lift) One Impairment Pt lacks self care HEP. Short Term Goal (STG) Pt will be educated in ex's appropriate for abdominal wall at her current condition (TA & core stabilization ex's). (07/03/21: HEP: TA tightening in sup, side, sitting). (07/31/21: Initiated active upper trunk rot holding baby). (11/27/21: HEP: Standing trunk rot-anson/isotonic and verbal I /S for supine anson) STG Duration 07/23/21 (11/27/21: Progressed, goal not met). Shelter Goal (LTG) Pt will be independent with HEP of core and pelvic floor stretches and isolated PF strengthening exercises. (07/31/21: Pt doing TA, isolated PF, and sitting trunk rot ex). (08/21/21: HEP: Hip IR stretch, hands/knees push for rotation). LTG Duration 09/24/21 (08/21/21: Progressed, goal not met. ) Assessment Summary Assessment Pt overall has made some good progress. She was able to improve in her bowel and urinary management and has strengthened her PF with a reduction in urinary incontinence. She struggles with core stability due to her large Diastasis Rectus, LBP and continued hormonal effects from breast feeding. The pt is not able to return or be consistent with physical therapy now that her spouse has been deployed; therefore the pt has agreed to continue with her self care program and she will seek a new referral once her spouse has returned home and she is able to be consistent with attending therapy. The pt is being discharged from physical therapy as agreed upon by the patient. Physical Therapy Plan Discharge Physical Therapy Discharge Reasons No Longer Attending PT Discharge Comments Thank you for your referral.
== END 2022-01-06 12:40 ==
LOC: PHYS 11:15
PROVIDERS: Family Provider Obstetrics & Gynecology; PCP Student in an Organized Health Care Education/Training Program; Referring Provider Student in an Organized Health Care Education/Training Program; Visit Provider Student in an Organized Health Care Education/Training Program
DX: K46.9 Unspecified abdominal hernia without obstruction or gangrene (principal); M62.08 Separation of muscle (nontraumatic), other site; K59.00 Constipation, unspecified; M54.50 Low back pain, unspecified; N39.3 Stress incontinence (female) (male)
CPT/HCPCS: 97110; 97140; 97162; 97535

== ENCOUNTER 2022-07-30 21:17 | Emergency (ER) | payer OTHER, SELFPAY ==
[2022-07-30 21:51] VITALS: BP 123/88; PULSE 91; RESP 16; TEMP 36.6; O2SAT 98; BMI 32.8
[2022-07-31 00:29] VITALS: PULSE 80; O2SAT 98
--- NOTE | 2022-07-31 00:29 | DI.US.S_ITS ---
PROCEDURE: US PELVIC COMPLETE INDICATIONS: PAIN; CHECK IUD TECHNIQUE: Real-time scanning was performed of the pelvic organs, with image documentation. Additional endovaginal scanning was necessary due to incomplete visualization of the adnexal and endometrial structures by transabdominal scanning. COMPARISON: [facility], US, US PELVIC COMPLETE, 05/07/2021, 10:51. FINDINGS: Uterus: Uterus is retroverted and normal in size at 7.8 x 4.9 x 5.4 cm. The myometrium is homogeneous. The endometrium measures 7-8 mm combined thickness. The IUD is seen at its expected location. Ovaries: The right ovary measures 3.5 x 2 x 2.1 cm, with a calculated ovarian volume of 7.4 cc. The left ovary measures 3 x 1.7 x 1.4 cm, with a calculated ovarian volume of 3.7 cc. The ovaries have a normal sonographic appearance, with simple appearing cystic follicles involving the right ovary that measures up to 2 cm. Less than 12 follicles can be seen in each ovary. No adnexal masses are seen. Other: No pathologic free abdominal or pelvic fluid. IMPRESSION: The IUD is seen at its expected location. We strive to produce accurate, complete, and clear reports of imaging services. To assist us in improving patient care, this report was composed using standard report templates and voice recognition software. Therefore, it may contain abnormal punctuation, insertions and/or omissions. Occasional wrong-word or sound-alike substitutions may occur. Though we review the report and make efforts to correct it, we do recommend that the report be read carefully in proper context to recognize any text inaccuracies. Dictated by: Angelo Larson M.D. on 07/31/2022 at 0:44 Approved by: Angelo Larosn M.D. on 07/31/2022 at 0:45
[2022-07-31 00:30] VITALS: BP 122/66; PULSE 80; O2SAT 98
--- NOTE | 2022-07-31 01:00 | ED.ABDPAIN ---
HPI - Abdominal Pain General Chief Complaint: Abdominal Pain Stated Complaint: Thinks control out of place Time Seen by Provider: 07/30/22 21:39 Source: patient Mode of arrival: Ambulatory History of Present Illness HPI narrative: 31-year-old female nonsmoker with history of diabetes presents with a chief complaint of concern that her IUD has migrated. She states that she has had 3 IUDs and this 1 was placed in 2020. She states for the last day or 2 she is felt pain low in her pelvic region and she checked and she feels like the strings are longer and there is the sensation that her cervix is swollen. She is had no fever or chills. She denies nausea or vomiting. She denies any dysuria, frequency or urgency. She denies any back pain. She states that she has a small amount of discharge and it might be blood tinged but denies any noted vaginal bleeding Related Data Home Medications Medication Instructions Recorded Confirmed prenat.vits,ryann,[id number] 1 tab PO DAILY 07/23/20 04/02/21 Previous Rx's Medication Instructions Recorded blood-glucose meter #1 ea 08/07/20 lancets 30 gauge and blood glucose #100 ea 08/07/20 strips combo pack ibuprofen 600 mg tablet 600 mg PO QID PRN pain or cramping 02/28/21 #20 tabs Allergies Allergy/AdvReac Type Severity Reaction Status Date / Time No Known Drug Allergies Allergy Verified 04/02/21 15:41 Review of Systems Review of Systems Narrative: GENERAL: Denies chills, fatigue, malaise, fever, sweats. HEENT: Denies sinus pain, ear pain, sore throat, difficulty swallowing, dizziness. RESPIRATORY: Denies dyspnea, cough, wheezing, hemoptysis, sputum. CARDIOVASCULAR: Denies chest pain, palpitations, orthopnea, edema, GASTROINTESTINAL: Denies nausea, vomiting, abdominal pain, diarrhea, constipation, melena. : See HPI MUSCULOSKELETAL: denies weakness, joint pain, or bony pain SKIN: Denies rash, skin lesions, or other NEUROLOGIC: Denies weakness, headache, numbness, change in speech, confusion, seizures, incoordination. PSYCHIATRIC: No concerning psychosocial issues. 12 point review of systems is negative except for those stated above Patient History Medical History A-fib (~2016) Anxiety (~2016) Bronchitis (~2002) Constipation (~2017) Depression (~2015) Diastasis recti Gestational diabetes (~12/2017) Migraine with aura (~2011) Normal colonoscopy Vanishing twin syndrome Surgical History Hx laparoscopic cholecystectomy (~2019) Hx of section Hx of colonoscopy (~2015) [place] teeth extracted (~01/2008) Family History Mother Depression Anxiety Thyroid disease Hypotension Father Depression Grandmother Ovarian cancer Depression Anxiety White matter disease Myocardial infarction Grandfather Family estrangement Grandmother Dementia Stroke Hypertension Hyperlipidemia Obesity Diabetes mellitus Grandfather Drug abuse Alcohol abuse Sister Anxiety Depression HPV in female Sister Anxiety Depression Social History marital status: number of children: 2 household members: spouse, family (Sister's ex-.) and children lives independently: Yes caregiver/support person: No housing: house pets and animals: Yes (1 husky, 1 monegasque olivares: Safe. 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.) current occupational exposures/hazards: No alejo/yarsanism: Faith special alejo needs: No seatbelt use: always working smoke detector in home: Yes fire extinguisher in home: Yes carbon monox detector in home: Yes firearms in home: No do you feel safe at home: Yes Smoking Status: Never smoker second hand exposure: Yes ( smokes outside.) alcohol intake: never substance use type: does not use during the past year weight has: increased > 10 lbs Type(s) of exercise: walking frequency: does not exercise Smoking Status: Never smoker alcohol intake frequency: holidays/special occasions only Substance Use Type: does not use Exam Narrative Exam Narrative: GENERAL: [31] year old patient appears stated age. Well-developed patient, in mild distress. HEAD: Atraumatic. Normocephalic. EYES: Pupils equal round and reactive. Extraocular motions intact. No scleral icterus. No injection or drainage. ENT: Nose without bleeding, purulent drainage. Throat without erythema, tonsillar hypertrophy or exudate. Airway patent. NECK: Trachea midline. Non tender CARDIOVASCULAR: Regular rate and rhythm without murmurs, gallops, or rubs. RESPIRATORY: Clear to auscultation. Breath sounds equal bilaterally. No wheezes, rales, or rhonchi. GASTROINTESTINAL: Abdomen soft, non-tender, nondistended. PELVIC: no drainage or bleeding. Cervix without redness, irriation. IUD strings visible. No obvious abnormality EXTREMITIES: No edema or joint tenderness. BACK: Nontender without deformity or crepitance. No flank tenderness. NEURO: AOx3. SKIN: No rash or erythema of visible areas Initial Vital Signs Initial Vital Signs: Vital Signs Temperature 97.8 F 07/30/22 21:51 Pulse Rate 91 H 07/30/22 21:51 Respiratory Rate 16 07/30/22 21:51 Blood Pressure 123/88 07/30/22 21:51 Pulse Oximetry 98 07/30/22 21:51 Oxygen Delivery Method Room Air 07/30/22 21:51 Course Orders Ordered: ED Orders 07/31/22 00:29 US pelvic complete Stat Vital Signs Vital signs: Vital Signs - 8 hr 07/30/22 21:51 07/31/22 00:29 07/31/22 00:30 Temperature 97.8 F Pulse Rate 91 H 80 Respiratory Rate 16 Blood Pressure 123/88 122/66 Pulse Oximetry 98 98 Oxygen Delivery Method Room Air 07/31/22 00:30 Temperature Pulse Rate 80 Respiratory Rate Blood Pressure Pulse Oximetry 98 Oxygen Delivery Method MDM - Abdominal Pain Lab Data Point of care testing: Point of Care Testing Test Results Negative Urine Dip Bedside Urine Glucose Negative Bedside Urine Bilirubin - Negative Bedside Urine Ketone - Negative Urine Specific [place] 1.015 Bedside Urine Occult Blood - Negative Bedside Urine pH 6.5 Bedside Urine Protein - Negative Bedside Urine Urobilinogen - Negative Bedside Urine Nitrite - Negative Bedside Urine Leukocytes - Negative Esterase MDM Narrative Medical decision making narrative: [31] year old patient presents with pelvic pain and concern for he shifted IUD Multiple etiologies for patient's symptoms considered including, but not limited to: [UTI, IUD malpositioning, uterine per versus other] Prior Charts reviewed in our EMR Primary Historian: patient Labs reviewed and interpreted by myself: Urine without evidence of infection Imaging reviewed: Pelvic ultrasound demonstrates appropriate placement of IUD without other abnormality Patient's symptoms improved over duration of stay with above-stated therapies. Reassuring physical exam and ultrasound. No other significant abnormalities noted. Patient appropriate for discharge Findings and discharge diagnosis discussed with patient/family followed by verbalization of understanding Return precautions discussed with patient/family whom verbalize understanding of diagnosis and plan Discharge Plan Departure Patient Disposition: Home Clinical Impression: IUD complication Instructions: DI for Intrauterine Device Removal Activity Restrictions/Additional Instructions: *You have been diagnosed with [concern for IUD complication. As we discussed your physical exam and ultrasound are very reassuring and both would suggest the IUD is where it should be. There are no other obvious abnormalities, urine does not demonstrate infection.] *What to do: *Please continue to take your regular medications as directed. *Please follow up with your primary care provider in 2-3 days, call for an appointment. Let them know you were seen in the Emergency Department and that we ask that you be seen in follow up. We will electronically transmit a record of today's note if your PCP is in our system *If you do not have a primary care provider please contact the [facility] Resource line at [phone]. They will ask some questions about your medical history and help get you set up with a doctor in the community. *Return to Emergency Department if you should have any new, worsening or concerning symptoms, such as [fever greater than 101 F, shaking chills, worsening pain, persistent vomiting or other bothersome symptoms] Prescriptions: No Action prenat.vits,ryann,stn-wtly-putrs Tablet 1 tab PO DAILY (DME) blood-glucose meter Misc See Rx Instructions .MEDSUPPLY Qty: 1 0RF Rx Instructions: Use to check blood sugar 5 times daily as directed and record on log sheet. (DME) lancets-blood glucose strips 30 gauge combo pack See Rx Instructions .MEDSUPPLY Qty: 100 2RF Rx Instructions: Use to check blood sugar 5 times daily as directed and record on log sheet. ibuprofen 600 mg tablet 600 mg PO QID PRN (Reason: pain or cramping) Qty: 20 2RF Referrals: Yudelka Lee MD [Primary Care Provider] - Stand Alone Forms: Patient Portal/API
[2022-07-31 02:11] VITALS: BP 115/68; PULSE 70; RESP 18; O2SAT 99
== END 2022-07-31 02:13 | disposition home or self-care (01) ==
PROVIDERS: Emergency Provider Emergency Medicine; Family Provider Obstetrics & Gynecology; PCP Student in an Organized Health Care Education/Training Program
DX: T83.9XXA Unspecified complication of genitourinary prosthetic device, implant and graft, initial encounter (principal)
CPT/HCPCS: 76830; 76856; 81003; 81025; 99283

== ENCOUNTER 2024-03-29 16:50 | Emergency (ER) | payer OTHER, SELFPAY ==
[2024-03-29 16:58] VITALS: BP 123/80; PULSE 84; RESP 16; TEMP 37.1; O2SAT 98; BMI 31.6
--- NOTE | 2024-03-29 17:32 | ED_ITS ---
HPI - Abdominal Pain <Gely Mason PA-C - Last Filed: 03/29/24 19:02> General Chief Complaint: Abdominal Pain Stated Complaint: chronic pain Time Seen by Provider: 03/29/24 17:07 Source: patient Mode of arrival: Ambulatory History of Present Illness HPI narrative: Ms. Infante is a pleasant 33-year-old female with a past medical history of umbilical hernia and diastasis recti repair November 2023, hiatal hernia, ovarian cyst, diverticulitis, gestational diabetes, Afib in sinus rhythm since 2016 who presents to the emergency department for acute on chronic left-sided abdominal pain x 3 weeks. Patient reports chronic abdominal pain for the last 1.5 years. She had large abdominal surgery in November of this year which temporarily improved some of her pain but she states that the left-sided abdominal pain has been getting worse. States over the last 3 weeks she has been constipated and the pain has been daily. Just over the last few days, she occasionally gets intermittent episodes of very sharp left-sided abdominal pain that occasionally radiates into the left back that causes her to become nauseous. She does not take any pain medication. She denies fevers, chest pain, shortness of breath, vaginal discharge, dysuria, hematuria, melena, hematochezia, STI concern. She has a ParaGard IUD in place. Related Data Home Medications Medication Instructions Recorded Confirmed prenat.vits,ryann,[id number] 1 tab PO DAILY 07/23/20 04/02/21 Previous Rx's Medication Instructions Recorded blood-glucose meter #1 ea 08/07/20 lancets 30 gauge and blood glucose #100 ea 08/07/20 strips combo pack ibuprofen 600 mg tablet 600 mg PO QID PRN pain or cramping 02/28/21 #20 tabs Allergies Allergy/AdvReac Type Severity Reaction Status Date / Time morphine AdvReac Verified 03/29/24 17:05 Review of Systems <Gely Mason PA-C - Last Filed: 03/29/24 19:02> Review of Systems ROS Unobtainable: All systems reviewed & are unremarkable except as noted in HPI and below Patient History <Gely Mason PA-C - Last Filed: 03/29/24 19:02> Medical History Vanishing twin syndrome Diastasis recti Depression (~2015) Anxiety (~2015) Constipation (~2017) Bronchitis (~2002) Migraine with aura (~2011) Normal colonoscopy A-fib (~2016) Gestational diabetes (~12/2017) Surgical History [place] teeth extracted (~01/2008) Hx laparoscopic cholecystectomy (~2019) Hx of colonoscopy (~2015) Hx of section Family History Mother Depression Anxiety Thyroid disease Hypotension Father Depression Grandmother Ovarian cancer Depression Anxiety White matter disease Myocardial infarction Grandfather Family estrangement Grandmother Dementia Stroke Hypertension Hyperlipidemia Obesity Diabetes mellitus Grandfather Drug abuse Alcohol abuse Sister Anxiety Depression HPV in female Sister Anxiety Depression Social History marital status: number of children: 2 household members: spouse, family (Sister's ex-.) and children lives independently: Yes caregiver/support person: No housing: house pets and animals: Yes (1 husky, 1 icelandic olivares: Safe. 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.) current occupational exposures/hazards: No alejo/jew: Uatsdin special alejo needs: No seatbelt use: always working smoke detector in home: Yes fire extinguisher in home: Yes carbon monox detector in home: Yes firearms in home: No do you feel safe at home: Yes Smoking Status: Never smoker second hand exposure: Yes ( smokes outside.) alcohol intake: never substance use type: does not use during the past year weight has: increased > 10 lbs Type(s) of exercise: walking frequency: does not exercise Smoking Status: Never smoker alcohol intake frequency: holidays/special occasions only Exam <Gely Mason PA-C - Last Filed: 03/29/24 19:02> Narrative Exam Narrative: GENERAL: 33 year old patient appears stated age. Well-developed patient, in no acute distress. HEAD: Atraumatic. Normocephalic. EYES: Extraocular motions intact. No scleral icterus. No injection or drainage. ENT: Nose without bleeding, purulent drainage. NECK: Trachea midline. Cervical ROM intact. CARDIOVASCULAR: Regular rate and rhythm. RESPIRATORY: ?Nonlabored respirations. ?Speaking in clear, full sentences. ?Clear to auscultation. Breath sounds equal bilaterally. No wheezes, rales, or rhonchi. ? GASTROINTESTINAL: Abdomen soft, nondistended. Normal bowel sounds. Subjective tenderness in left mid abdomen with no rebound or guarding. Healed midline surgical incision, no umbilicus. BACK: No CVA tenderness. NEURO: AOx3. ?Clear speech. ?Moves all 4 extremities appropriately. SKIN: No rash or erythema of visible areas Initial Vital Signs Initial Vital Signs: Vital Signs Temperature 98.8 F 03/29/24 16:58 Pulse Rate 84 03/29/24 16:58 Respiratory Rate 16 03/29/24 16:58 Blood Pressure 123/80 03/29/24 16:58 Pulse Oximetry 98 03/29/24 16:58 Oxygen Delivery Method Room Air 03/29/24 16:58 <Luis Haile DO - Last Filed: 03/29/24 20:48> Initial Vital Signs Initial Vital Signs: Vital Signs Temperature 98.8 F 03/29/24 16:58 Pulse Rate 84 03/29/24 16:58 Respiratory Rate 16 03/29/24 16:58 Blood Pressure 123/80 03/29/24 16:58 Pulse Oximetry 98 03/29/24 16:58 Oxygen Delivery Method Room Air 03/29/24 16:58 Course <Gely Mason PA-C - Last Filed: 03/29/24 19:02> Orders Ordered: ED Orders 03/29/24 17:30 CT abdomen pelvis w con Stat Complete Blood Count AUTO DIFF Stat Comprehensive Metabolic Panel Stat Lipase Stat 03/29/24 18:00 Urine Microscopic Stat Discontinued Medications Ketorolac Tromethamine (Ketorolac 30 Mg/Ml Vial) 15 mg IV NOW ONE Stop: 03/29/24 17:30 Last Admin: 03/29/24 18:17 Dose: 15 mg Documented By: SIMEON Vital Signs Vital signs: Vital Signs - 8 hr 03/29/24 16:58 03/29/24 20:18 Temperature 98.8 F Pulse Rate 84 70 Respiratory Rate 16 20 Blood Pressure 123/80 124/74 Pulse Oximetry 98 100 Oxygen Delivery Method Room Air Room Air <Luis Haile DO - Last Filed: 03/29/24 20:48> Orders Ordered: ED Orders 03/29/24 17:30 CT abdomen pelvis w con Stat Complete Blood Count AUTO DIFF Stat Comprehensive Metabolic Panel Stat Lipase Stat 03/29/24 18:00 Urine Microscopic Stat Discontinued Medications Ketorolac Tromethamine (Ketorolac 30 Mg/Ml Vial) 15 mg IV NOW ONE Stop: 03/29/24 17:30 Last Admin: 03/29/24 18:17 Dose: 15 mg Documented By: SIMEON Vital Signs Vital signs: Vital Signs - 8 hr 03/29/24 16:58 03/29/24 20:18 Temperature 98.8 F Pulse Rate 84 70 Respiratory Rate 16 20 Blood Pressure 123/80 124/74 Pulse Oximetry 98 100 Oxygen Delivery Method Room Air Room Air MDM - Abdominal Pain <Gely Mason PA-C - Last Filed: 03/29/24 19:02> Medical Records Attestation: I reviewed the patient's medical records. Lab Data 03/29/24 17:30 03/29/24 17:30 Labs: Lab Results 03/29/24 03/29/24 Range/Units 17:30 18:00 WBC 8.7 (4.5-11.0) X10^3/uL RBC 4.61 (4.0-5.2) X10^6/uL Hgb 13.8 (12.0-16.0) g/dL Hct 40.9 (36-46) % MCV 88.7 (80-100) fL MCH 30.0 (26-34) PG MCHC 33.8 (30-36) % RDW 13.2 (11.6-14.8) % Plt Count 225 (150-400) X10^3/uL Neut % (Auto) 70.8 (50-75) % Lymph % (Auto) 21.2 L (25-40) % Barnwell % (Auto) 6.6 (3-14) % Eos % (Auto) 1.0 L (2-4) % Baso % (Auto) 0.4 (0-2) % Neut # (Auto) 6100 (8402-0275) /uL Lymph # (Auto) 1800 (3660-5649) /uL [place]well # (Auto) 600 (0-900) /uL Eos # (Auto) 100 (0-450) /uL Baso # (Auto) 0 (0-100) /uL Sodium 135 L (137-145) mmol/L Potassium 3.9 (3.4-5.1) mmol/L Chloride 107 (98-107) mmol/L Carbon Dioxide 24 (22-32) mmol/L BUN 14 (7-17) mg/dL Creatinine 0.79 (0.52-1.04) mg/dL Estimated GFR > 60 (>60) mL/min BUN/Creatinine Ratio 17.7 (6-22) Glucose 97 (70-100) mg/dL Calcium 9.1 (8.4-10.2) mg/dL Total Bilirubin 1.3 (0.2-1.3) mg/dL AST 24 (14-36) IU/L ALT 24 (<35) IU/L Alkaline Phosphatase 78 (38-126) U/L Total Protein 7.5 (6.3-8.2) g/dL Albumin 4.2 (3.5-5.0) g/dL Globulin 3.3 (1.7-4.1) g/dL Albumin/Globulin Ratio 1.3 (1.0-2.8) Lipase 76 (23-300) U/L Urine RBC 0-1/hpf (0-5/HPF) Urine WBC 0-1/hpf (0-5/HPF) Ur Squamous Epith Cells 0-1 /hpf (0-5/HPF) Calcium Oxalate Crystal Occasional H Urine Bacteria None seen (None) Urine Mucus 1+ H (Negative) Ur Culture Indicated? Cult not indicated Vol Urine Centrifuged 10ml (spun) Point of care testing: Point of Care Testing Test Results Negative Urine Dip Bedside Urine Glucose Negative Bedside Urine Bilirubin + 1 Bedside Urine Ketone +/- 5 Urine Specific Jadwin 1.025 Bedside Urine Occult Blood - Negative Bedside Urine pH 6.0 Bedside Urine Protein +/- 15 Bedside Urine Urobilinogen - Negative Bedside Urine Nitrite - Negative Bedside Urine Leukocytes - Negative Esterase MDM Narrative Medical decision making narrative: 33 year old patient presents with acute on chronic left-sided abdominal pain x 3 weeks. Surgical hx of , cholecystectomy, diastasis recti repair, umbilical hernia repair. Differential diagnosis includes but is not limited to: Diverticulitis, IBD, constipation, UTI, ureterolithiasis, ovarian cyst, IBS, etc. Prior Charts reviewed in our EMR. Primary Historian: patient. On physical exam the patient is in no acute distress, nontoxic appearing, vital signs within normal limits. Patient has subjective tenderness in the left lumbar region of the abdomen with no rebound or guarding. Normal bowel sounds. She does have quite an extensive surgical abdominal history most recently with diastasis recti and umbilical hernia repair in November of this year. After shared decision-making with patient, we will proceed with abdominal labs, urinalysis, CT abdomen pelvis. We will treat with Toradol. Patient declines nausea medication at this time. Labs reviewed and interpreted by myself: poc urine hcg negative. CBC with normal WBC count 8.7, normal hemoglobin 13.8, hematocrit 40.9. Very minimal hyponatremia with sodium of 135. Remainder of CMP within normal limits including normal BUN/creatinine, normal glucose 97. AST, ALT, alk-phos, total bilirubin all within normal limits. Lipase 76. Urine microscopic and CT abdomen and pelvis pending at the time of my shift end. Case was discussed with the nighttime physician who will review pending results with patient and determine patient's disposition. Patient aware and agreeable to transfer of care. <Luis Haile, DO - Last Filed: 03/29/24 20:48> Lab Data Attestation: I reviewed the patient's lab results. Labs: Lab Results 03/29/24 03/29/24 Range/Units 17:30 18:00 WBC 8.7 (4.5-11.0) X10^3/uL RBC 4.61 (4.0-5.2) X10^6/uL Hgb 13.8 (12.0-16.0) g/dL Hct 40.9 (36-46) % MCV 88.7 (80-100) fL MCH 30.0 (26-34) PG MCHC 33.8 (30-36) % RDW 13.2 (11.6-14.8) % Plt Count 225 (150-400) X10^3/uL Neut % (Auto) 70.8 (50-75) % Lymph % (Auto) 21.2 L (25-40) % [place] % (Auto) 6.6 (3-14) % Eos % (Auto) 1.0 L (2-4) % Baso % (Auto) 0.4 (0-2) % Neut # (Auto) 6100 (0981-0414) /uL Lymph # (Auto) 1800 (6070-4332) /uL [place] # (Auto) 600 (0-900) /uL Eos # (Auto) 100 (0-450) /uL Baso # (Auto) 0 (0-100) /uL Sodium 135 L (137-145) mmol/L Potassium 3.9 (3.4-5.1) mmol/L Chloride 107 (98-107) mmol/L Carbon Dioxide 24 (22-32) mmol/L BUN 14 (7-17) mg/dL Creatinine 0.79 (0.52-1.04) mg/dL Estimated GFR > 60 (>60) mL/min BUN/Creatinine Ratio 17.7 (6-22) Glucose 97 (70-100) mg/dL Calcium 9.1 (8.4-10.2) mg/dL Total Bilirubin 1.3 (0.2-1.3) mg/dL AST 24 (14-36) IU/L ALT 24 (<35) IU/L Alkaline Phosphatase 78 (38-126) U/L Total Protein 7.5 (6.3-8.2) g/dL Albumin 4.2 (3.5-5.0) g/dL Globulin 3.3 (1.7-4.1) g/dL Albumin/Globulin Ratio 1.3 (1.0-2.8) Lipase 76 (23-300) U/L Urine RBC 0-1/hpf (0-5/HPF) Urine WBC 0-1/hpf (0-5/HPF) Ur Squamous Epith Cells 0-1 /hpf (0-5/HPF) Calcium Oxalate Crystal Occasional H Urine Bacteria None seen (None) Urine Mucus 1+ H (Negative) Ur Culture Indicated? Cult not indicated Vol Urine Centrifuged 10ml (spun) Point of care testing: Point of Care Testing Test Results Negative Urine Dip Bedside Urine Glucose Negative Bedside Urine Bilirubin + 1 Bedside Urine Ketone +/- 5 Urine Specific Jadwin 1.025 Bedside Urine Occult Blood - Negative Bedside Urine pH 6.0 Bedside Urine Protein +/- 15 Bedside Urine Urobilinogen - Negative Bedside Urine Nitrite - Negative Bedside Urine Leukocytes - Negative Esterase Imaging Data CT scan - abdomen/pelvis: Radiologist's Impression: PROCEDURE: CT ABDOMEN PELVIS W CON INDICATIONS: acute on crhonic L sided abdominal pain TECHNIQUE: After the administration of intravenous contrast, axial sections acquired from the lung bases to the pubic symphysis. Coronal and sagittal reformats were performed. For radiation dose reduction, the following was used: automated exposure control, adjustment of mA and/or kV according to patient size. COMPARISON: None. FINDINGS: Image quality: Diagnostic. Lower Chest: Lung bases are clear. Small hiatal hernia. ABDOMEN: Liver: No solid mass. Gallbladder: Surgically absent Biliary ducts: No biliary dilation. Pancreas: Homogeneous enhancement without focal lesions or pancreatic ductal dilatation. No peripancreatic inflammation or organized fluid collections. Spleen: Borderline splenomegaly. Adrenal Glands: No adrenal nodules. Kidneys and Ureters: No hydronephrosis. No solid mass. No complex renal cystic lesion which requires follow up. Nonobstructing 5 mm left renal stone. Bilateral ureters are normal in course and caliber. No ureteral stones. No perinephric or periureteral stranding. Stomach and Bowel: Normal colonic caliber, without significant wall thickening. Normal appendix. No evidence for small bowel obstruction or associated inflammatory changes. Scattered colonic diverticula without acute inflammation. Peritoneum: No abnormal intraperitoneal fluid. No free air. Ventral Wall: Postsurgical changes of the ventral abdomen from prior hernia repairs. No abnormal fluid collection seen. No ventral hernia identified on today's study. Abdominal Nodes: No retroperitoneal or mesenteric adenopathy by size criteria. Vessels: Aorta and inferior vena cava are normal in size. PELVIS: Pelvic Organs: An intrauterine device is visualized within the uterus. Prominent right ovarian vein and suggestion of mild varices in the lower pelvis. Bladder: No bladder wall thickening, accounting for underdistention. Pelvic Nodes: No enlarged lymph nodes. Miscellaneous: No inguinal hernias are seen. Bones: No aggressive osseous abnormality. Visualized osseous structures appear intact without acute fracture or focal destructive lesion. No acute compression fractures of the imaged spine. IMPRESSION: 1. Nonobstructing 4 mm left renal stone. No hydronephrosis or perinephric stranding. 2. Borderline splenomegaly. 3. Prominent right ovarian vein with findings suggestive of possible pelvic congestion syndrome. 4. Small hiatal hernia. 5. Normal appendix. 6. Postsurgical changes of the ventral abdomen compatible with reported history of multiple ventral hernia repairs. MDM Narrative Medical decision making narrative: 33 year old patient presents with acute on chronic left-sided abdominal pain x 3 weeks. Surgical hx of , cholecystectomy, diastasis recti repair, umbilical hernia repair. Differential diagnosis includes but is not limited to: Diverticulitis, IBD, constipation, UTI, ureterolithiasis, ovarian cyst, IBS, etc. Prior Charts reviewed in our EMR. Primary Historian: patient. On physical exam the patient is in no acute distress, nontoxic appearing, vital signs within normal limits. Patient has subjective tenderness in the left lumbar region of the abdomen with no rebound or guarding. Normal bowel sounds. She does have quite an extensive surgical abdominal history most recently with diastasis recti and umbilical hernia repair in November of this year. After shared decision-making with patient, we will proceed with abdominal labs, urinalysis, CT abdomen pelvis. We will treat with Toradol. Patient declines nausea medication at this time. Labs reviewed and interpreted by myself: poc urine hcg negative. CBC with normal WBC count 8.7, normal hemoglobin 13.8, hematocrit 40.9. Very minimal hyponatremia with sodium of 135. Remainder of CMP within normal limits including normal BUN/creatinine, normal glucose 97. AST, ALT, alk-phos, total bilirubin all within normal limits. Lipase 76. Urine microscopic and CT abdomen and pelvis pending at the time of my shift end. Case was discussed with the nighttime physician who will review pending results with patient and determine patient's disposition. Patient aware and agreeable to transfer of care. Dr Haile: Received turned over. Review patient's history and physical exam. CT scan today shows no acute pathology. No explanation for her left-sided abdominal discomfort. She was had this discomfort for some time. Has seen GI. Has never seen machine gun mechanic. No indication for admission to the hospital. No indication for surgical consultation. Will discharge patient home with instructions to contact primary doctor for which she has an appointment already scheduled for tomorrow morning. She was given return precautions. Discharge Plan Departure Patient Disposition: Home Clinical Impression: Left sided abdominal pain Instructions: DI for Abdominal Pain-Adult Activity Restrictions/Additional Instructions: Please follow up with your primary care doctor within the next 2-3 days for ER follow-up. (If you do not have a PCP you can call [phone]. ?to schedule an appointment with an [facility] Primary Care Provider) IF YOU DEVELOP ANY NEW OR WORSENING SYMPTOMS, RETURN TO THE ER! Please read the attached instructions, they highlight more specific treatments and interventions for you at home. Thank you for letting me participate in your care, Gely Mason PA-C Prescriptions: No Action prenat.vits,ryann,[id number]-hyphe Tablet 1 tab PO DAILY (DME) blood-glucose meter Misc See Rx Instructions .MEDSUPPLY Qty: 1 0RF Rx Instructions: Use to check blood sugar 5 times daily as directed and record on log sheet. (DME) lancets-blood glucose strips 30 gauge combo pack See Rx Instructions .MEDSUPPLY Qty: 100 2RF Rx Instructions: Use to check blood sugar 5 times daily as directed and record on log sheet. ibuprofen 600 mg tablet 600 mg PO QID PRN (Reason: pain or cramping) Qty: 20 2RF Referrals: Yudelka Lee MD [Primary Care Provider] - Lauren Steve MD [Family Provider] - Stand Alone Forms: Patient Portal/API/Survey
[2024-03-29 17:50] LABS: Add Manual Diff / Slide Review NO; Basophils Absolute Auto 0 /uL (0-100); Basophils Percent Auto 0.4 % (0-2); Eosinophils Absolute Auto 100 /uL (0-450); Hematocrit 40.9 % (36-46); Hemoglobin 13.8 g/dL (12.0-16.0); Lymphocytes Absolute Auto 1800 /uL (1100-4500); Lymphocytes Percent Auto 21.2 % (25-40); Mean Corpuscular HGB Conc 33.8 % (30-36); Mean Corpuscular Volume 88.7 fL (80-100); Monocytes Absolute Auto 600 /uL (0-900); Monocytes Percent Auto 6.6 % (3-14); Neutrophils Absolute Auto 6100 /uL (1500-7000); Neutrophils Percent Auto 70.8 % (50-75); Platelet Count 225 X10^3/uL (150-400); Red Blood Cell Count 4.61 X10^6/uL (4.0-5.2); Red Cell Distribution Width 13.2 % (11.6-14.8); White Blood Cell Count 8.7 X10^3/uL (4.5-11.0)
[2024-03-29 18:05] LABS: Alanine Aminotransferase 24 IU/L (<35); Albumin 4.2 g/dL (3.5-5.0); Albumin Globulin Ratio 1.3 (1.0-2.8); Alkaline Phosphatase 78 U/L (38-126); Aspartate Aminotransferase 24 IU/L (14-36); BUN Creatinine Ratio 17.7 (6-22); Bilirubin Total 1.3 mg/dL (0.2-1.3); Blood Urea Nitrogen 14 mg/dL (7-17); Calcium 9.1 mg/dL (8.4-10.2); Carbon Dioxide 24 mmol/L (22-32); Chloride 107 mmol/L (98-107); Estimated Glomerular Filt Rate > 60 mL/min (>60); Globulin 3.3 g/dL (1.7-4.1); Glucose 97 mg/dL (70-100); HEMOLYSIS < 15 (0-50); Lipase 76 U/L (23-300); Potassium 3.9 mmol/L (3.4-5.1); Sodium 135 mmol/L (137-145); Total Protein 7.5 g/dL (6.3-8.2)
[2024-03-29] MEDS: KETOROLAC 30 MG/ML VIAL 15 MG IV (18:17)
[2024-03-29 19:01] LABS: Bacteria Urine None Seen; Calcium Oxalate Crystals Urine Occasional; RBC Urine 0-1/HPF (0-5/HPF); Squamous Epithelial Cell Urine 0-1 /HPF (0-5/HPF); Urine Volume 10mL (spun); WBC Urine 0-1/HPF (0-5/HPF)
[2024-03-29 19:02] LABS: Culture Indicated Urine Cult Not Indicated; Mucus Urine 1+ (Negative)
--- NOTE | 2024-03-29 19:35 | PC.NURSE ---
Assumed care of pt at 1900. Pt states that the ketorolac helped and her pain is resolved. Denies n/v. A&Ox4.
[2024-03-29 20:18] VITALS: BP 124/74; PULSE 70; RESP 20; O2SAT 100
== END 2024-03-29 20:19 | disposition home or self-care (01) ==
PROVIDERS: Physician Assistant; Emergency Provider Emergency Medicine; Family Provider Obstetrics & Gynecology; PCP Student in an Organized Health Care Education/Training Program
DX: R10.9 Unspecified abdominal pain (principal); Z97.5 Presence of (intrauterine) contraceptive device
CPT/HCPCS: 36415; 74177; 80053; 81003; 81015; 81025; 83690; 85025; 96374; 99284; J1885; Q9967